=== PATIENT | male | born 1970 | race Caucasian/White ===

== ENCOUNTER → 2018-09-02 19:27 | Outpatient (CLI) | payer MEDICAID, SELFPAY ==
[2018-09-02 19:42] LABS: Basophils # 0.1 K/mm3 (0-0.2); Basophils % 1.2 % (0.1-2.0); Eosinophils # 0.3 K/mm3 (0.0-0.4); Eosinophils % 4.8 % (0.1-12.0); Hematocrit 53.8 % (42.0-52.0); Hemoglobin 17.6 g/dL (14.1-18.0); Lymphocytes # 2.6 K/mm3 (0.7-4.5); Lymphocytes % 42.3 % (10-50); Mean Corpuscular HGB Conc 32.7 g/dL (31.8-35.4); Mean Corpuscular Hemoglobin 32.8 pg (27.0-31.2); Mean Corpuscular Volume 100.4 fl (80-94); Mean Platelet Volume 10.1 fl (7.4-10.4); Monocytes # 0.4 K/mm3 (0.1-1.0); Monocytes % 6.4 % (1.7-9.3); Neutrophils # 2.8 K/mm3 (1.8-7.8); Neutrophils % 45.3 % (37.0-80.0); Platelet Count 199 K/mm3 (142-424); Red Blood Count 5.36 M/mm3 (4.60-6.20); Red Cell Distribution Width 13.3 % (11.5-17.5); White Blood Count 6.2 K/mm3 (4.8-10.8)
[2018-09-02 20:08] LABS: Alanine Aminotransferase 36 U/L (12-78); Albumin Level 3.6 gm/dL (3.4-5.0); Albumin/Globulin Ratio 0.9 (1.1-1.8); Alkaline Phosphatase 83 U/L (46-116); Anion Gap 15.2 mEq/L (5-15); Aspartate Amino Transferase 19 U/L (15-37); Bilirubin,Total 0.3 mg/dL (0.2-1.0); Blood Urea Nitrogen 7 mg/dL (7-18); Carbon Dioxide 24 mmol/L (21.0-32.0); Chloride 103 mmol/L (98-107); Chol/HDL Ratio 9.9 (1-3.5); Cholesterol 348 mg/dL (140-200); Estimated Glomerular Filt Rate 80 ml/min (>60); GFR (African American) 97 ML/MIN (>60); Globulin 4.1 gm/dl (1.3-3.2); Glucose 84 mg/dL (74-106); HDL Cholesterol 35 mg/dL (27-67); LDL Cholesterol 243 mg/dL (0-130); Potassium 4.2 mmoL/L (3.5-5.1); Sodium 138 mmol/L (136-145); T4 (Thyroxine) 6.8 ug/dl (4.7-13.3); Thyroid Stimulating Hormone 2.38 uIU/ml (0.358-3.740); Total Protein,Serum 7.7 gm/dL (6.4-8.2); Triglycerides 349 mg/dL (30-200); VLDL Cholesterol 70 mg/dL (0-40)
[2018-09-05 17:10] LABS: PSA, Free 0.18 ng/mL; Prostate Specific Ag 0.9 ng/mL (0.0-4.0); Testosterone,Total 327 ng/dL (264-916); Vitamin D 25 Hydroxy 5.1 ng/mL (30.0-100.0)
== END ==
PROVIDERS: Visit Provider Physician Assistant
DX: R39.11 Hesitancy of micturition (principal); J42 Unspecified chronic bronchitis
CPT/HCPCS: 80053; 80061; 82652; 84153; 84154; 84403; 84436; 84443; 85025

== ENCOUNTER → 2019-04-09 11:18 | Outpatient (CLI) | payer MEDICAID, SELFPAY ==
--- NOTE | 2019-04-09 11:25 | CT_ITS ---
PROCEDURE: CT WRIST RT WO CON CLINICAL HISTORY: further evaluate fracture Pain following injury, fracture with deformity, preoperative evaluation COMPARISON: XR WRIST RT 2V from 04/08/2019 TECHNIQUE: Axial images obtained with sagittal and coronal reformats. All CT scans at the facility use one or more dose reduction, viz: automated exposure control, ma/kV adjustment per patient size (including targeted exams where dose is matched to indication, i.e. head), or iterative reconstruction technique. FINDINGS: There is a comminuted distal radial fracture with both transverse and longitudinal component. Longitudinal component is along the distal and anterior aspect of the radius with depression and anterior displacement of the anterior radial fracture fragment by 8 mm. The longitudinal component extends into the articular surface. There is anterior subluxation the lunate/carpal bones. This is consistent with a volar type Medrano's fracture dislocation. The Radi O ulnar joint appears intact. No other fractures are evident. There is mild soft tissue swelling about the wrist dorsally. IMPRESSION: Volar type Medrano's fracture dislocation of the distal radius/wrist Dictated by: Shaun Jaeger MD 04/09/2019 12:48 Signed by: <Electronically signed by Shaun Jaeger MD in [place]> 04/09/2019 12:48
== END ==
PROVIDERS: PCP Emergency Medicine; Visit Provider Orthopaedic Surgery
DX: S62.101A Fracture of unspecified carpal bone, right wrist, initial encounter for closed fracture (principal)
CPT/HCPCS: 73200

== ENCOUNTER → 2019-04-10 10:08 | Outpatient (CLI) | payer MEDICAID, SELFPAY ==
--- NOTE | 2019-04-10 | ECG_ITS ---
APPROVED REPORT Exam: Resting ECG HR:63 bpm ECG Measurements Heart Rate 63 AXES MS 164 P 10 QRSd 102 QRS 26 QT 400 T 47 QTc 409 <Conclusion> Normal sinus rhythm with sinus arrhythmia Normal ECG Electronically signed by : Grodon Horner, 04/10/2019 17:38:50
--- NOTE | 2019-04-10 10:37 | XR_ITS ---
PROCEDURE: XR CHEST 2V CLINICAL HISTORY: TOBACCO USE COMPARISON: No exams were available for comparison FINDINGS: The cardiomediastinal silhouette and pulmonary vascularity are within normal limits. There is coarsening of the bronchovascular markings suggesting chronic peribronchial inflammatory change/COPD. No lobar consolidation or collapse. Degenerative changes thoracic spine IMPRESSION: COPD, no acute finding Dictated by: Shaun Jaeger MD 04/10/2019 11:20 Signed by: <Electronically signed by Shaun Jaeger MD in [place]> 04/10/2019 11:20
[2019-04-10 10:46] LABS: Basophils # 0.1 K/mm3 (0-0.2); Eosinophils # 0.2 K/mm3 (0.0-0.4); Eosinophils % 3.5 % (0.1-12.0); Hematocrit 46.7 % (42.0-52.0); Hemoglobin 15.7 g/dL (14.1-18.0); Lymphocytes # 1.9 K/mm3 (0.7-4.5); Lymphocytes % 32.8 % (10-50); Mean Corpuscular HGB Conc 33.5 g/dL (31.8-35.4); Mean Corpuscular Hemoglobin 33.4 pg (27.0-31.2); Mean Corpuscular Volume 99.6 fl (80-94); Mean Platelet Volume 10.3 fl (7.4-10.4); Monocytes # 0.4 K/mm3 (0.1-1.0); Monocytes % 7.1 % (1.7-9.3); Neutrophils # 3.2 K/mm3 (1.8-7.8); Neutrophils % 55.5 % (37.0-80.0); Platelet Count 153 K/mm3 (142-424); Red Blood Count 4.69 M/mm3 (4.60-6.20); Red Cell Distribution Width 14.3 % (11.5-17.5); White Blood Count 5.8 K/mm3 (4.8-10.8)
[2019-04-10 11:42] LABS: Blood Urea Nitrogen 9 mg/dL (7-18); Calcium 8.8 mg/dL (8.5-10.1); Carbon Dioxide 29 mmol/L (21.0-32.0); Chloride 105 mmol/L (98-107); Creatinine,Serum 1.46 mg/dL (0.70-1.30); Estimated Glomerular Filt Rate 52 ml/min (>60); GFR (African American) 62 ML/MIN (>60); Glucose 97 mg/dL (74-106); Sodium 140 mmol/L (136-145)
== END ==
PROVIDERS: PCP Emergency Medicine; Visit Provider Orthopaedic Surgery
DX: Z01.818 Encounter for other preprocedural examination (principal); S52.561A Barton's fracture of right radius, initial encounter for closed fracture
CPT/HCPCS: 36415; 71046; 80048; 85025; 93005

== ENCOUNTER → 2019-04-23 14:26 | Outpatient (CLI) | payer MEDICAID, SELFPAY ==
--- NOTE | 2019-04-23 14:32 | XR_ITS ---
PROCEDURE: XR WRIST RT MIN 3V CLINICAL INDICATION: wrist ORIF Follow-up ORIF/fracture, pain COMPARISON: XR WRIST RT 2V from 04/08/2019 XR WRIST RT 2V from 04/13/2019 FINDINGS: A cast is in place. There is an anterior/volar bone plate stabilizing the distal radial fracture which is in good alignment. There may be some callus formation laterally. IMPRESSION: Good alignment status post ORIF distal radial fracture Dictated by: Shaun Jaeger MD 04/23/2019 16:40 Electronically signed by Shaun Jaeger MD in [place] 04/23/2019 16:40
== END ==
PROVIDERS: PCP Emergency Medicine; Visit Provider Orthopaedic Surgery
DX: S52.501A Unspecified fracture of the lower end of right radius, initial encounter for closed fracture (principal)
CPT/HCPCS: 73110

== ENCOUNTER → 2019-05-20 12:59 | Outpatient (CLI) | payer MEDICAID, SELFPAY ==
--- NOTE | 2019-05-20 13:06 | XR_ITS ---
PROCEDURE: XR WRIST RT MIN 3V CLINICAL INDICATION: sp ORIF rt distal radius; cast removal COMPARISON: XR WRIST RT 2V from 04/08/2019 XR WRIST RT MIN 3V from 04/23/2019 FINDINGS: Distal right wrist orthopedic hardware is stable. The appearance of the distal radius and ulna are stable. There has been removal of the splint device. There is no other change. IMPRESSION: Removal of the splint device. No other significant change or acute process. Dictated by: Maico Huber 05/20/2019 13:30 Electronically signed by Maico Huber in [place] 05/20/2019 13:30
== END ==
PROVIDERS: PCP Emergency Medicine; Visit Provider Orthopaedic Surgery
DX: Z48.89 Encounter for other specified surgical aftercare (principal); S62.101D Fracture of unspecified carpal bone, right wrist, subsequent encounter for fracture with routine healing
CPT/HCPCS: 73110

== ENCOUNTER 2019-05-20 14:03 | Outpatient (RCR) | payer MEDICAID, SELFPAY | END 2019-05-20 14:15 | disposition home or self-care (01) | LOC: OT 14:03 | PROVIDERS: Visit Provider Orthopaedic Surgery | DX: S52.561D Barton's fracture of right radius, subsequent encounter for closed fracture with routine healing (principal) | CPT/HCPCS: 97763 ==

== ENCOUNTER 2019-06-12 13:00 | Outpatient (RCR) | payer MEDICAID, SELFPAY ==
--- NOTE | 2019-05-29 13:42 | HMH.OTOPEV ---
OT Inpatient Evaluation Rehab OT Outpatient Eval Start: 05/29/19 13:27 Freq: Status: Active Protocol: Document 05/29/19 13:27 TFRY (Rec: 05/29/19 13:42 TFRY [id number]) Electronically Signed By Cori Easton OT 05/29/19 13:27 Outpatient Therapy Subjective History Subjective History Patient referred to occupational therapy after undergoing an ORIF of right wrist. Patient reported that he had surgery on 04/13/19. He reported that he fell off his porch approximately 10 days prior to having surgery. Patient reports that he is right handed. Chief Complaint Pain,Stiff Symptom Type Ache,Sharp Symptoms Relieved By Ice,Brace/Support Symptoms Aggravated By Physical Activity Prior Functional Limitations None Current Functional Limitations Lifting,Housework Level of pain today (0-10) 1 Pain scale - at its best (0-10) 1 Pain scale - at its worst (0-10) 8 Wrist/Hand Eval Wrist Range of Motion Right Wrist Extension Active Range of Motion ( 50 degrees) Wrist Extension Passive Range of Motion 54 (degrees) Wrist Flexion Active Range of Motion ( 40 degrees) Wrist Flexion Passive Range of Motion ( 51 degrees) Wrist Radial Deviation Active Range of 20 Motion (degrees) Wrist Radial Deviation Passive Range of 22 Motion (degrees) Wrist Ulnar Deviation Active Range of 15 Motion (degrees) Wrist Ulnar Deviation Passive Range of 20 Motion (degrees) Forearm Supination Active Range of 70 Motion (degrees) Forearm Supination Passive Range of 90 Motion (degrees) Forearm Pronation Active Range of Motion WFL (degrees) Forearm Pronation Passive Range of WFL Motion (degrees) Wrist Manual Muscle Testing Right Wrist Extension Strength Grade 3+ Fair+ Wrist Flexion Strength Grade 3+ Fair+ Wrist Radial Deviation Strength Grade 3+ Fair+ Wrist Ulnar Deviation Strength Grade 3+ Fair+ Flexor Carpi Ulnaris Strength Grade 3+ Fair+ Forearm Supination Strength Grade 3+ Fair+ Forearm Pronation Strength Grade 3+ Fair+ Supply And Distribution Manager/Pinch Strength Supply And Distribution Manager Strength Measurement (lbs) 15 OT Outpatient Assessment Impairments Problems/Impairments Impaired Strength,Impaired Lifting,Impaired Household Care,Subjective C/O Pain Prognosis Rehab Potential Good Clinical Impressio
== END 2019-06-12 13:05 | disposition home or self-care (01) ==
LOC: OT 13:00
PROVIDERS: Visit Provider Orthopaedic Surgery
DX: S52.561D Barton's fracture of right radius, subsequent encounter for closed fracture with routine healing (principal)
CPT/HCPCS: 97110; 97140; 97165

== ENCOUNTER → 2019-07-07 12:42 | Outpatient (CLI) | payer OTHER, SELFPAY ==
--- NOTE | 2019-07-07 12:50 | XR_ITS ---
PROCEDURE: XR WRIST RT 2V CLINICAL INDICATION: sp ORIF RT wrist, dos 04/13/19 COMPARISON: 05/20/2019 FINDINGS: Status post ORIF distal radial fracture with volar bone plate with good alignment. The fracture lines are not well visualized. There are osteoarthritic changes of the distal radial ulnar joint and scapholunate joint IMPRESSION: Good alignment status post ORIF distal radial fracture Dictated by: Shaun Jaeger MD 07/07/2019 16:48 Electronically signed by Shaun Jaeger MD in [place] 07/07/2019 16:48
== END ==
PROVIDERS: PCP Emergency Medicine; Visit Provider Orthopaedic Surgery
DX: S52.501D Unspecified fracture of the lower end of right radius, subsequent encounter for closed fracture with routine healing (principal); Z09 Encounter for follow-up examination after completed treatment for conditions other than malignant neoplasm
CPT/HCPCS: 73100

== ENCOUNTER → 2019-09-07 13:19 | Outpatient (CLI) | payer OTHER, SELFPAY ==
--- NOTE | 2019-09-07 13:19 | MR_ITS ---
PROCEDURE: MR SHOULDER RT WO CON CLINICAL INDICATION: evaluate for a rotator cuff tear COMPARISON: No exams were available for comparison TECHNIQUE: FINDINGS: Routine multiplanar multisequence exam was performed. There is a full-thickness tear of the supraspinatus tendon of the rotator cuff. A small amount of fluid is seen in the subacromial/subdeltoid bursa. There is mild old acromioclavicular joint arthropathy with bone marrow edema in the distal clavicle and in the acromion on and there is some bony hypertrophy projecting inferiorly contacting the supraspinatus muscle. A small amount of fluid is seen in the acromion -clavicular joint space. There is fluid in the subcoracoid recess. Small amount of fluid is seen in the glenohumeral joint space. There is signal abnormality in the subscapularis tendon with intact fibers and some tendon thickening consistent with tendinosis or partial substance tearing. Glenoid labrum appear intact. An approximately 4 millimeter subchondral cyst is seen in the superior lateral humeral head. The bicipital tendon is in place. IMPRESSION: Full-thickness tear of supraspinatus tendon of the rotator cuff. Tendinosis/partial substance tearing of the subscapularis tendon is also noted. Dictated by: Michele Fontenot 09/07/2019 16:47 Electronically signed by Michele Fontenot in [place] 09/07/2019 16:47
== END ==
PROVIDERS: PCP Emergency Medicine; Visit Provider Orthopaedic Surgery
DX: M25.511 Pain in right shoulder (principal)
CPT/HCPCS: 73221

== ENCOUNTER → 2019-09-14 09:40 | Outpatient (CLI) | payer OTHER, SELFPAY ==
--- NOTE | 2019-09-14 09:47 | XR_ITS ---
PROCEDURE: XR CHEST 2V CLINICAL HISTORY: smoker/ preop evaluation COMPARISON: XR CHEST 2V from 04/10/2019 FINDINGS: The cardiomediastinal silhouette and pulmonary vascularity are within normal limits. COPD with chronic interstitial changes noted. No lobar consolidation or collapse. No acute bony abnormalities. IMPRESSION: COPD with chronic changes. No change with no acute Dictated by: Shaun Jaeger MD 09/14/2019 12:23 Electronically signed by Shaun Jaeger MD in [place] 09/14/2019 12:23
--- NOTE | 2019-09-14 10:51 | ECG_ITS ---
APPROVED REPORT Exam: Resting ECG HR:59 bpm ECG Measurements Heart Rate 59 AXES NM 182 P 20 QRSd 96 QRS 10 QT 390 T 38 QTc 386 <Conclusion> Sinus bradycardia with sinus arrhythmia Otherwise normal ECG Electronically signed by : Frederick Domingo, 09/14/2019 13:17:27
[2019-09-14 11:03] LABS: Basophils # 0.1 K/mm3 (0-0.2); Basophils % 1.6 % (0.1-2.0); Eosinophils # 0.2 K/mm3 (0.0-0.4); Eosinophils % 4.1 % (0.1-12.0); Hematocrit 49.3 % (42.0-52.0); Hemoglobin 16.4 g/dL (14.1-18.0); Lymphocytes # 2.2 K/mm3 (0.7-4.5); Lymphocytes % 37.8 % (10-50); Mean Corpuscular HGB Conc 33.1 g/dL (31.8-35.4); Mean Corpuscular Hemoglobin 32.6 pg (27.0-31.2); Mean Corpuscular Volume 98.5 fl (80-94); Mean Platelet Volume 9.5 fl (7.4-10.4); Monocytes # 0.5 K/mm3 (0.1-1.0); Monocytes % 7.9 % (1.7-9.3); Neutrophils # 2.8 K/mm3 (1.8-7.8); Neutrophils % 48.6 % (37.0-80.0); Platelet Count 163 K/mm3 (142-424); Red Blood Count 5.01 M/mm3 (4.60-6.20); Red Cell Distribution Width 14.9 % (11.5-17.5); White Blood Count 5.7 K/mm3 (4.8-10.8)
[2019-09-14 11:22] LABS: Alanine Aminotransferase 28 U/L (12-78); Albumin Level 3.7 gm/dL (3.4-5.0); Albumin/Globulin Ratio 1.2 (1.1-1.8); Alkaline Phosphatase 72 U/L (46-116); Anion Gap 14.1 mEq/L (5-15); Aspartate Amino Transferase 18 U/L (15-37); Bilirubin,Total 0.5 mg/dL (0.2-1.0); Blood Urea Nitrogen 9 mg/dL (7-18); Calcium 8.9 mg/dL (8.5-10.1); Carbon Dioxide 27 mmol/L (21.0-32.0); Chloride 106 mmol/L (98-107); Estimated Glomerular Filt Rate 64 ml/min (>60); GFR (African American) 78 ML/MIN (>60); Globulin 3.1 gm/dl (1.3-3.2); Glucose 83 mg/dL (74-106); Potassium 4.1 mmoL/L (3.5-5.1); Sodium 143 mmol/L (136-145); Total Protein,Serum 6.8 gm/dL (6.4-8.2)
== END ==
PROVIDERS: PCP Emergency Medicine; Visit Provider Orthopaedic Surgery
DX: Z01.818 Encounter for other preprocedural examination (principal); S46.011D Strain of muscle(s) and tendon(s) of the rotator cuff of right shoulder, subsequent encounter
CPT/HCPCS: 36415; 71046; 80053; 85025; 93005

== ENCOUNTER → 2019-12-15 13:31 | Outpatient (CLI) | payer OTHER, SELFPAY ==
--- NOTE | 2019-12-15 13:35 | XR_ITS ---
PROCEDURE: XR SHOULDER RT MIN 2V CLINICAL INDICATION: surgery 09/17/2019; internal, external and y views Follow-up surgery COMPARISON: XR SHOULDER RT MIN 2V from 07/29/2019 FINDINGS: There are 2 anchor screws along the humeral head centrally. There are mild osteoarthritic changes the acromioclavicular joint and glenohumeral joint with some minimal superior displacement of the humeral head. IMPRESSION: Postsurgical changes with mild osteoarthritis of the AC joint and glenohumeral joint Dictated by: Shaun Jaeger MD 12/15/2019 13:53 Electronically signed by Shaun Jaeger MD in [place] 12/15/2019 13:53
== END ==
PROVIDERS: PCP Emergency Medicine; Visit Provider Orthopaedic Surgery
DX: Z09 Encounter for follow-up examination after completed treatment for conditions other than malignant neoplasm (principal); Z98.890 Other specified postprocedural states; S49.91XD Unspecified injury of right shoulder and upper arm, subsequent encounter; S46.011D Strain of muscle(s) and tendon(s) of the rotator cuff of right shoulder, subsequent encounter
CPT/HCPCS: 73030

== ENCOUNTER 2020-04-14 17:43 | Emergency (ER) | payer OTHER, SELFPAY ==
[2020-04-14 18:02] VITALS: BP 137/72; PULSE 81; RESP 14; TEMP 36.6; O2SAT 96; BMI 33.0
--- NOTE | 2020-04-14 18:11 | HMH.EDUTC ---
[facility] [place] Disposition Clinical Impression: Low back pain Qualifiers: Chronicity: unspecified Back pain laterality: bilateral Sciatica presence: without sciatica Qualified Code(s): M54.5 - Low back pain Disposition: Home, Self-Care Condition on Discharge: Good Instructions: DI for Low Back Pain, Low Back Pain, Low Back Pain (Alternative Therapy), Cyclobenzaprine, Etodolac Additional Instructions: *Etodolac patrick 6 hours with meal as needed for pain/inflammation *Remember you had a Toradol shot in the clinic today, which is similar to Etodolac *Not additional anti-inflammatory like motrin, aleve, advil with the above amount of ibuprofen. You can still take Tylenol every 4 hours as needed if you need something else for pain *Ice 20 minutes every 2 hours for the first 48 hours after the initial injury followed by moist heat every 20 minutes 3-4 times a day to affected area *Muscle relaxer every 8 hours as needed for muscle spasms but remember, it WILL cause drowsiness You cannot take it and drive, operate machinery or care for small children. *Keep this area active, no movement leads to more stiffness, However take it easy and avoid heavy lifting pushing or pulling *Follow up with you family doctor if no improvement for further treatment] Return if needed Straight to ER if any life threatening symptoms Prescriptions: Etodolac [Etodolac 200mg Cap*] 200 mg PO Q6H PRN #20 cap PRN Reason: Moderate Pain Transmission Status: Pending to [facility] Cyclobenzaprine HCl [Flexeril 10mg tablet] 10 mg PO TID PRN #12 tab PRN Reason: Muscle Spasm Transmission Status: Pending to [facility] Referrals: Daniel Peña MD [Primary Care Provider] - As needed Time of Disposition: 18:34 Medical Decision Making - Oscar Inquiry Pt receiving controlled substance: No Oscar was queried for this patient: No Vital Signs: 04/14/20 18:02 Temperature 97.8 F Temperature Source Oral Pulse Rate [Right Brachial] 81 Respiratory Rate 14 Blood Pressure [Right Arm] 137/72 Blood Pressure Mean [Right Arm] 93 Blood Pressure Source [Right Arm] Automatic Cuff Blood Pressure Position [Right Arm] Sitting 02 Sat by Pulse Oximetry 96 Oxygen Delivery Method Room Air - Lab Data Lab results reviewed: Yes: I reviewed the patient's lab results. Medical Decision Narrative: Discussed with patient with history of Kidney stones that we recommend transfer to the ED for CT with stone protocol to rule out Kidney stones and patient declined transfer States that feels nothing like it did when he had Kidney stones and declined transfer [facility] [place] HPI - General Stated complaint: back pain Time Seen by Provider: 04/14/20 18:12 Mode of Arrival: Ambulatory Source of Information: Patient Limitations: No Limitations Description of Symptoms (Recalled from Triage Doc. by RN): PATIENT C/O SHARP, STABBING MID-BACK PAIN THAT RADIATES DOWN SINCE SATURDAY. HE STATES HE DOES HAVE A HISTORY OF KIDNEY STONES HEENT Symptoms (Recalled from RN notes): No Resp Symptoms (Recalled from RN notes): No Skin Symptoms (Recalled from RN notes): No MS Symptoms (Recalled from RN notes): Yes Functional Status (Recalled from RN notes): WNL - History of Present Illness Provider Complaint: Patient states that he has a history of Kidney stones but this doesnt feel like it did then States that he has been having stabbing, dull achy like pain in his lower back and feeling of tightness and spasms Denies loss of control of bowel or bladder States that he pulled his bedridden sister up in bed on Saturday and has been having pain ever since that is in his lower back and radiating into buttock area - Related Data Previous Rx's Medication Instructions Recorded Cyclobenzaprine HCl [Flexeril 10mg 10 mg PO TID PRN #12 tab 04/14/20 tablet] Etodolac [Etodolac 200mg Cap*] 200 mg PO Q6H PRN #20 cap 04/14/20 Allergies Allergy/AdvReac Type Severity Reaction Status Date / Time No Known Allergies
[2020-04-14 18:15] LABS: Apearance,Urine Clear (Clear); Color,Urine Yellow (Yellow)
[2020-04-14 18:16] LABS: PH,Urine 5.5 (5.0-8.5); Specific Gravity, Urine >= 1.030 (1.005-1.030)
[2020-04-14 18:17] LABS: Bilirubin,Urine Negative (Negative); Blood, Urine Negative (Negative); Glucose,Urine (UA) Negative (Negative); Ketones,Urine Negative (Negative); Protein,Urine Negative (Negative); UTC Leukocyte Esterase,Urine Negative (Negative); UTC Nitrate,Urine Negative (Negative); Urobilinogen,Urine 1 EU/dl (0.2)
[2020-04-14 18:29] VITALS: BP 137/72; PULSE 81; RESP 14; TEMP 36.6; O2SAT 96
== END 2020-04-14 18:45 | disposition home or self-care (01) ==
PROVIDERS: Emergency Provider Nurse Practitioner; PCP Emergency Medicine
DX: M54.5 Low back pain (principal); Z87.442 Personal history of urinary calculi; I10 Essential (primary) hypertension; J44.9 Chronic obstructive pulmonary disease, unspecified; E78.5 Hyperlipidemia, unspecified; F33.1 Major depressive disorder, recurrent, moderate; F17.210 Nicotine dependence, cigarettes, uncomplicated; Z79.899 Other long term (current) drug therapy
CPT/HCPCS: 81003; 96372; 99201; 99202

== ENCOUNTER 2020-12-29 10:46 | Emergency (ER) | payer OTHER, SELFPAY ==
[2020-12-29 10:47] VITALS: BP 162/100; PULSE 78; RESP 20; TEMP 36.6; O2SAT 99; BMI 34.2
--- NOTE | 2020-12-29 11:05 | HMH.EDGENADL ---
ED Disposition Clinical Impression: Fracture, vertebral, lumbar closed Qualifiers: Encounter type: initial encounter Lumbar vertebra fracture level: L5 Fracture morphology: other fracture Qualified Code(s): S32.058A - Other fracture of fifth lumbar vertebra, initial encounter for closed fracture Disposition: Home, Self-Care Condition on Discharge: Fair Instructions: DI for Vertebral Fracture, DI for Low Back Pain Additional Instructions: Percocet as needed for pain. Rest. Additional instructions for BACK PAIN: See your physician as soon as possible for further evaluation. Return immediately if back pain becomes intolerable, or if fever, numbness or weakness of your legs, loss of control of your bowels or bladder. Additional instructions for CONTROLLED SUBSTANCES: You have been prescribed a medication that is a controlled substance. Controlled substances include pain medications known as opiates and sedative nerve medications known as benzodiazepines. Tramadol, fioricet, and gabapentin are also controlled substances. Some common opiates include: Codeine (such as Tylenol #3) Hydrocodone (Vicodin, Lortab, Lorcet, [place]) Oxycodone (Percocet, Percodan, Oxycodone, Oxy IR) Some common benzodiazepines include: Diazepam (Valium) Lorazepam (Ativan) Alprazolam (Xanax) Clonazepam (Klonopin) Oxazepam (Serax) All of these controlled substances are highly addictive and frequently abused. Misuse can and frequently does lead to addiction as well as overdose and . Medication should be stored in a locked cabinet or other secure storage unit. Do not store the medication in a motor vehicle. Short term supplies, 3 days or less, are prescribed because of the highly addictive nature of the medication. Any of the controlled substance medication NOT taken should be disposed of properly and NOT SAVED. The recommended method of disposing of unused medications is: Place the medicines in a sealable plastic bag. If the medicine is a solid, crush it or add water to dissolve it. Add something undesirable (cat litter, coffee grounds, etc.) Dispose of sealed bag in household trash Do not flush or pour unused medicines down a sink or drain. Controlled substances should not be shared, given away or sold. Because of the addictive nature and frequent abuse, these medications are sometimes stolen. These medications should be kept in a safe place where they cannot be stolen. Do not keep them in your car or purse. Lost or stolen prescriptions for controlled substances WILL NOT BE REFILLED in this emergency department, regardless of whether a police report was filed. Prescriptions: Oxycodone HCl/Acetaminophen [Percocet 5/325mg tablet] 1 tab PO Q6HP PRN #20 tab PRN Reason: Moderate To Severe Pain Transmission Status: Received by [facility] Referrals: Daniel Peña MD [Primary Care Provider] - - Critical Care Critical Care Time: No Attestation: On , the high probability of a clinically significant, sudden or life threatening deterioration of the following system(s) required my full and direct attention, intervention and personal management. The time I documented below is in addition to time spent performing reported procedures but includes the following listed in this critical care notation. Medical Decision Making - Oscar Inquiry Pt receiving controlled substance: Yes Oscar was queried for this patient: Yes Risks and benefits of using a controlled substance: were discussed with pt by me Vital Signs: 12/29/20 10:47 12/29/20 11:45 Temperature 97.8 F Temperature Source Oral Pulse Rate 76 Pulse Rate [Right Radial] 78 Respiratory Rate 20 18 Blood Pressure 144/96 H Blood Pressure [Right Arm] 162/100 H Blood Pressure Mean [Right Arm] 120 02 Sat by Pulse Oximetry 99 95 Oxygen Delivery Method Room Air Orders (Tests/Meds): ED MEDICATIONS Discontinued Medications Generic Name Dose Route Sta
--- NOTE | 2020-12-29 11:13 | CT_ITS ---
PROCEDURE: CT LUMBAR SPINE WO CON CLINICAL HISTORY: fall COMPARISON: No exams were available for comparison TECHNIQUE: Axial images obtained with sagittal and coronal reformats. All CT scans at the facility use one or more dose reduction, viz: automated exposure control, ma/kV adjustment per patient size (including targeted exams where dose is matched to indication, i.e. head), or iterative reconstruction technique. FINDINGS: There is normal lumbar lordosis. Vertebral body heights and alignment are maintained. Anterior osteophyte formation is noted at L3, L4 and L5 vertebral bodies. There is evidence of fracture of the anterior osteophyte at L5 vertebral body. No other acute fractures or traumatic subluxation. Bone density is normal. Multilevel disc desiccation with the disc osteophyte complexes noted causes mild thecal sac indentation. Multilevel facet joint arthropathy, worse at L4-5 level causes moderate to severe bilateral foraminal narrowing. Minor soft tissue stranding is noted adjacent to the prevertebral soft tissues at the L5 vertebral body. Otherwise the paravertebral soft tissues demonstrate no significant abnormality. Atherosclerotic vascular calcification is noted. Two focal sclerotic density is noted in the left iliac bone, of uncertain significance. The statistically most likely represents bone islands. IMPRESSION: Vertebral body heights and alignment are maintained. There is a fracture of the anterior osteophyte of the L5 vertebral body. Multilevel degenerative changes with the disc osteophyte complex at L4-5, causes moderate to severe bilateral foraminal narrowing. Dictated by: Mare Bryson 12/29/2020 12:17 Mare Bryson in [place] 12/29/2020 12:17
[2020-12-29 11:45] VITALS: BP 144/96; PULSE 76; RESP 18; O2SAT 95
[2020-12-29 13:04] VITALS: BP 162/100; PULSE 78; RESP 20; TEMP 36.6; O2SAT 99
== END 2020-12-29 13:06 | disposition home or self-care (01) ==
PROVIDERS: Emergency Provider Emergency Medicine; PCP Emergency Medicine
DX: S32.058A Other fracture of fifth lumbar vertebra, initial encounter for closed fracture (principal); W30.89XA Contact with other specified agricultural machinery, initial encounter; Y92.017 Garden or yard in single-family (private) house as the place of occurrence of the external cause; J44.9 Chronic obstructive pulmonary disease, unspecified; E78.5 Hyperlipidemia, unspecified; I10 Essential (primary) hypertension; F17.210 Nicotine dependence, cigarettes, uncomplicated; Z79.899 Other long term (current) drug therapy
CPT/HCPCS: 72131; 96372; 99282; J2405

== ENCOUNTER → 2021-01-05 10:26 | Outpatient (POV) | payer OTHER, SELFPAY ==
[2021-01-05 10:44] VITALS: BP 132/85; PULSE 68; RESP 18; O2SAT 98; BMI 22.2
--- NOTE | 2021-01-05 15:07 | HMH.PMCON ---
Assessment and Plan (1) Degenerative disc disease Status: Acute Category: Medical (2) Lumbar radiculopathy Status: Acute Category: Medical Code(s): M54.16 - Radiculopathy, lumbar region - Assessment and plan all Dx Assessment and Plan for all problems:: We will schedule an L4-L5 lumbar epidural steroid injection for the patient. Patient's been instructed to call the office if he has any issues prior to his next appointment. Dr. Mosley has reviewed this note and agrees with this plan of care. This note was dictated using voice recognition software and may contain errors or omissions HPI - Data of Consult Requesting Physician: Maday Waters APRN Primary Care Provider: Daniel Peña MD - Consult Narrative Reason for consult: Back pain, leg pain History of present illness: Mr. Saldivar is a 50 year old male in today for consultation in regards to his back pain. Patient has had back pain for several years he rates it a 6 out of 10. He has numbness and tingling in his right leg extending all the way to his foot. Patient has failed 6 weeks of medication therapy including Kearsarge. Patient does get temporary relief sometimes from oral steroids however this is unsustainable. He has an MRI showing degenerative changes. Patient is interested in injective therapy. Patient's tried and failed physical therapy, massage therapy. Patient had a pain physician back in 1995 had lidocaine injections at the time however the relief was not long-lasting. Patient I discussed steroid epidural steroid injections. CC: Maday Waters APRN [facility] History I have reviewed the patient's past medical history: Yes Medical History: Reports:: Chronic Obstructive Pulmonary Disease (COPD), Depression, Hyperlipidemia, Hypertension Denies:: Cancer, Diabetes Mellitus Type 1, Diabetes Mellitus Type 2, Internal Pacemaker, MRSA, Seizures *Have you ever received a pneumonia vaccine?: Yes *Have you received a flu vaccine this season?: Yes Other Medical History: Reports: Arthritis, Other. Denies: Blood Transfusion Reaction Laterality Cases: Left: ACL Repair, Arthroscopy Knee, Right: Arthroscopy Shoulder, Bilateral: Other Other Surgeries: Yes: No Previous Surgery, Other. No: Pacemaker Amputation: No Fractures: Yes (R wrist x2) - *Social History Smoking Status: Current every day smoker Tobacco Type: cigarettes # Packs/Day (cigarettes): 1 Alcohol Intake: never Alcohol Intake Frequency:: a few times a month Substance Use Type: marijuana *Occupational Status:: employed Housing: house Household Members: other *Travel in the last 8 weeks: None - Psychiatric History Pschychiatric History:: Reports:: Depression Family Hx:: Cancer, Coronary Artery Disease, Diabetes, Heart Attack, Hyperlipidemia, Hypertension Review of Systems - Review of Systems ROS General: no recent weight change, no fever, no sleep disturbances Respiratory: no cough, no shortness of air, no recurring pulmonary infections Cardiovascular/Peripheral Vascular: No chest pain, No palpitations, no edema, no shortness of breath. Gastrointestinal: no new onset incontinence, normal bowel movements reported Genitourinary: no new onset incontinence Musculoskeletal: Back pain, leg pain Psychiatric: normal mood/ affect Neurological: [denies new onset weakness in extremities], [denies new onset balance issues] Meds Home Medications Medication Instructions Recorded Confirmed Type hydrocodone 7.5 mg-acetaminophen 1 tab PO TID PRN #21 tab 12/30/20 12/30/20 Rx 325 mg tablet Allergies Allergy/AdvReac Type Severity Reaction Status Date / Time No Known Allergies Allergy Verified 12/30/20 14:00 Objective Vital signs: Pulse Resp BP Pulse Ox 68 18 132/85 98 01/05/21 10:44 01/05/21 10:44 01/05/21 10:44 01/05/21 10:44 Narrative: Physical Exam General: Alert and oriented x3, no acute distress, pleasant and cooperative, [on room air]
== END ==
PROVIDERS: PCP Emergency Medicine; Visit Provider Clinical Nurse Specialist Family Health
DX: M51.16 Intervertebral disc disorders with radiculopathy, lumbar region (principal)
CPT/HCPCS: 99202; G0463

== ENCOUNTER → 2021-01-11 07:46 | Outpatient (CLI) | payer OTHER, SELFPAY ==
--- NOTE | 2021-01-11 07:46 | MR_ITS ---
PROCEDURE: MR LUMBAR SPINE WO CON CLINICAL INDICATION: back pain Tractor accident x1wk ago. LBP since. COMPARISON: CT CT LUMBAR SPINE WO CON from 12/29/2020 TECHNIQUE: Standard multiplanar multiecho sequences are performed without contrast. 3-D MIP and myelographic images are also rendered and reviewed FINDINGS: There is normal alignment. Spinal cord ends at the T12-L1 level. T12-L1: Mild degenerative disc disease with minimal bulging disc. There is a small right paracentral/foraminal disc herniation at this level with minimal superior extrusion causing right lateral recess and foraminal narrowing. L1-L2: Unremarkable. L2-L3: There is a small central disc protrusion. There is mild facet and ligamentum hypertrophy with mild bilateral lateral recess narrowing and mild bilateral foraminal narrowing. L3-L4: Mild bulging disc along with facet and ligamentum hypertrophy with mild bilateral foraminal narrowing. L4-5: Degenerative disc disease with bulging disc along with facet and ligamentum hypertrophy. There are endplate hypertrophic changes along with a bulging disc resulting in bilateral lateral recess and foraminal narrowing. There is borderline canal stenosis. The foraminal narrowing is worse on the right compared to the left. Type 2 endplate changes are present at this level. There is some bone marrow edema within the anterior superior aspect of the L5 vertebral body. Bridging osteophytes are present anteriorly at L4-L5. There is a thin longitudinal area of decreased T2 signal within the base of the osteophyte of L5 consistent with a nondisplaced fracture as seen on the recent CT scan. L5-S1: Small central disc protrusion with mild bulging disc. Small central disc protrusion is very slightly eccentric toward the left. There is degenerative disc disease at this level. Facet and ligamentum hypertrophic changes are noted with mild bilateral foraminal narrowing. IMPRESSION: 1. T12-L1: Mild degenerative disc disease with minimal bulging disc. There is a small right paracentral/foraminal disc herniation at this level with minimal superior extrusion causing right lateral recess and foraminal narrowing. 2. L2-L3: There is a small central disc protrusion. There is mild facet and ligamentum hypertrophy with mild bilateral lateral recess narrowing and mild bilateral foraminal narrowing. 3. L3-L4: Mild bulging disc along with facet and ligamentum hypertrophy with mild bilateral foraminal narrowing. 4. L4-5: Degenerative disc disease with bulging disc along with facet and ligamentum hypertrophy. There are endplate hypertrophic changes along with a bulging disc resulting in bilateral lateral recess and foraminal narrowing. There is borderline canal stenosis. The foraminal narrowing is worse on the right compared to the left. Type 2 endplate changes are present at this level. There is some bone marrow edema within the anterior superior aspect of the L5 vertebral body. Bridging osteophytes are present anteriorly at L4-L5. There is a thin longitudinal area of decreased T2 signal within the base of the osteophyte of L5 consistent with a nondisplaced fracture as seen on the recent CT scan. 5. L5-S1: Small central disc protrusion with mild bulging disc. Small central disc protrusion is very slightly eccentric toward the left. There is degenerative disc disease at this level. Facet and ligamentum hypertrophic changes are noted with mild bilateral foraminal narrowing. Dictated by: Shaun Jaeger MD 01/12/2021 13:30 Shaun Jaeger MD in [place] 01/12/2021 13:30
== END ==
PROVIDERS: PCP Emergency Medicine; Visit Provider Emergency Medicine
DX: M54.9 Dorsalgia, unspecified (principal); S32.058A Other fracture of fifth lumbar vertebra, initial encounter for closed fracture
CPT/HCPCS: 72148; 76376

== ENCOUNTER 2021-01-13 12:01 | Day surgery (SDC) | payer OTHER, SELFPAY ==
[2021-01-13 12:51] VITALS: BP 106/69; PULSE 68; RESP 18; TEMP 36.4; O2SAT 98; BMI 33.0
[2021-01-13 14:29] VITALS: BP 113/70; PULSE 66; RESP 17; O2SAT 99
[2021-01-13 14:33] VITALS: BP 113/70; PULSE 66; RESP 17; O2SAT 99
[2021-01-13 14:44] VITALS: BP 127/82; PULSE 66; RESP 20; O2SAT 98
--- NOTE | 2021-01-13 16:27 | HMH.PMPROC ---
- Procedure Date: 01/13/21 Time: 16:28 Anesthesiologist:: Jenny Ward MD Complications:: None Pre-procedure Diagnosis:: Disc disease of lumbar spine, lumbar radiculopathy Post-procedure Diagnosis:: Same Indications for Procedure:: Patient is a very pleasant 50-year-old white male who presents today with low back pain. He reports that he has been experiencing this back pain for several years now and it radiates down his right lower extremity extending all the way to his foot. He notes numbness and tingling down his right leg. He has trialed and failed 6 weeks of medication therapy including [place], physical therapy and massage therapy. He is also trialed short-term of oral steroids with some temporary relief. Imaging reveals degenerative changes. Exam today revealed flexion extension of the lumbar spine is somewhat guarded secondary to pain motor strength in upper and lower extremities is grossly intact and antalgic gait is noted. For today is lumbar epidural steroid injection at L4-L5. Procedure Details:: Informed consent was obtained and the risk and benefits of the procedure was explained to the patient. The patient was taken to the procedure room. The patient was placed prone on the procedure table. The patient was prepped and draped in sterile fashion. C-arm fluoroscopy was used to view the lumbar spine. Skin and subcutaneous tissues were anesthetized using lidocaine. I placed an 18-gauge epidural needle and advanced into the L4-L5 interspace using fluoroscopic guidance and [id number] to air. After confirmation of needle placement in the epidural space with dye I injected 2 mL of lidocaine 1.5% with Depo-Medrol 80 mg. Patient tolerated the procedure well with no complications. Plan and Disposition:: Up in 2 weeks. Will reevaluate symptoms at that time.
== END 2021-01-13 14:44 | disposition home or self-care (01) ==
LOC: SC.PAINP 12:03
PROVIDERS: PCP Emergency Medicine; Visit Provider Anesthesiology Pain Medicine
DX: M51.16 Intervertebral disc disorders with radiculopathy, lumbar region (principal); I10 Essential (primary) hypertension; E78.5 Hyperlipidemia, unspecified; J44.9 Chronic obstructive pulmonary disease, unspecified; M19.90 Unspecified osteoarthritis, unspecified site; F32.9 Major depressive disorder, single episode, unspecified; Z72.0 Tobacco use
CPT/HCPCS: 62323; J1040; Q9966

== ENCOUNTER 2021-02-14 11:38 | Emergency (ER) | payer OTHER, SELFPAY ==
[2021-02-14 11:40] VITALS: BP 150/95; PULSE 102; RESP 18; TEMP 36.8; O2SAT 98; BMI 33.0
--- NOTE | 2021-02-14 12:17 | HMH.EDUTC ---
[facility] [place] Clinical Impression: Urtic[place] Disposition: Home, Self-Care Condition on Discharge: Good Instructions: Hives, DI for Hives Additional Instructions: Try to avoid contact with the offending substance. Wear sun screen and try to prevent any sun burn. Don't start the oral steroids until tomorrow. Don't put the topical steroids (triamcinolone) on your face or your groin. The hydroxyzine (vistaril) will make you drowsy, so don't drive or operate heavy machinery after taking it. Also, don't take it along with any benedryl because these medications are similar and it could make you too drowsy. Follow up with your regular doctor. GO TO THE ER FOR ANY WORSENING SYMPTOMS OR CONCERNS Prescriptions: hydrOXYzine pamoate [Vistaril 25mg capsule] 25 mg PO Q6HP PRN #30 cap PRN Reason: Hives Transmission Status: Received by [facility] methylPREDNISolone [Medrol] 4 mg PO DIRECTED 6 Days #21 [email or web address] Transmission Status: Received by [facility] Referrals: Daniel Peña MD [Primary Care Provider] - Time of Disposition: 13:15 Medical Decision Making - Medical Records Medical records reviewed: No: I reviewed the patient's medical records. - Oscar Inquiry Pt receiving controlled substance: No Vital Signs: 02/14/21 11:40 02/14/21 12:39 Temperature 98.2 F 98.2 F Temperature Source Oral Pulse Rate 102 H Pulse Rate [Right Brachial] 102 H Respiratory Rate 18 18 Blood Pressure 150/95 H Blood Pressure [Right Arm] 150/95 H Blood Pressure Mean [Right Arm] 113 Blood Pressure Source [Right Arm] Automatic Cuff Blood Pressure Position [Right Arm] Sitting 02 Sat by Pulse Oximetry 98 Oxygen Delivery Method Room Air Orders (Tests/Meds): ED MEDICATIONS Discontinued Medications Generic Name Dose Route Start Last Admin Trade Name Freq PRN Reason Stop Dose Admin Methylprednisolone Sodium Succinate 125 mg 02/14/21 12:31 02/14/21 12:37 Methylprednisolone Sod Succ 125mg Vial IM 02/14/21 12:32 125 mg ONCE ONE Administration [facility] [place] - General Stated complaint: hives on legs, possible sun poisoning Time Seen by Provider: 02/14/21 12:17 Mode of Arrival: Ambulatory Source of Information: Patient Limitations: No Limitations Description of Symptoms (Recalled from Triage Doc. by RN): PATIENT C/O HIVES TO BACK OF LEGS X 1 MONTH, LIKELY STRESS INDUCED. ALSO C/O POSSIBLE SUN POISONING SINCE SATURDAY HEENT Symptoms (Recalled from RN notes): No Resp Symptoms (Recalled from RN notes): No Skin Symptoms (Recalled from RN notes): Yes MS Symptoms (Recalled from RN notes): No Functional Status (Recalled from RN notes): WNL - History of Present Illness Provider Complaint: He states that he has been getting hives and severe itching of the backs of both his legs for the past 1 month. Also, 4 days ago he was in the sun a lot and he got sun burned on his face and arms. - Related Data Home Medications Medication Instructions Recorded Confirmed Cyclobenzaprine HCl [Flexeril 10mg 10 mg PO DAILY 01/13/21 01/13/21 tablet] Previous Rx's Medication Instructions Recorded hydrOXYzine pamoate [Vistaril 25mg 25 mg PO Q6HP PRN #30 cap 02/14/21 capsule] methylPREDNISolone [Medrol] 4 mg PO DIRECTED 6 Days #21 02/14/21 tab.[email or web address] Allergies Allergy/AdvReac Type Severity Reaction Status Date / Time No Known Allergies Allergy Verified 01/13/21 13:34 - Worker's Comp Is this a Worker's Comp case?: No [facility] History - Hepatitis A Screen Drug use history?: No High risk sexual behaviors?: No History of sexually transmitted infection?: No Currently employed?: No Childcare worker?: No Do you have indoor plumbing?: Yes Do you have electricity?: Yes Attestation statement:: This patient has been screened for Hepatitis A risk factors. I have reviewed the patient's past medical history: Yes Medical History: Reports:: Chronic Obstructive Pulmonary Dis
[2021-02-14 12:39] VITALS: BP 150/95; PULSE 102; RESP 18; TEMP 36.8; O2SAT 98
== END 2021-02-14 13:23 | disposition home or self-care (01) ==
PROVIDERS: Emergency Provider Nurse Practitioner Family; PCP Emergency Medicine
DX: L50.0 Allergic urticaria (principal); J44.9 Chronic obstructive pulmonary disease, unspecified; E78.5 Hyperlipidemia, unspecified; I10 Essential (primary) hypertension; Z79.899 Other long term (current) drug therapy
CPT/HCPCS: 96372; 99202; G0463

== ENCOUNTER → 2021-02-16 14:46 | Outpatient (POV) | payer OTHER, SELFPAY ==
[2021-02-16 15:22] VITALS: BP 150/81; PULSE 100; RESP 18; O2SAT 96; BMI 33.0
--- NOTE | 2021-02-19 14:18 | HMH.PAINSOAP ---
[facility] Pain Management SOAP Note Subjective:: Patient is a 50-year-old white male who presents today for follow-up after lumbar epidural steroid injection. He is being treated for degenerative disc disease lumbar spine with lumbar radiculopathy symptoms. Patient rates his pain a 6 out of 10 today. He reports to have gotten 10 days of relief with his injection. He says that he got approximately 70% relief. His pain has returned. His pain is primarily in his low back area, as well as bilateral lower extremities. The pain is worse when rising from a sitting position. He says he does have to toss and turn often when lying down. He is currently taking corticosteroids. He understands we will not be able to do a lumbar epidural steroid injection for 2 weeks post corticosteroids. He and I discussed trying Duexis and Pennsaid cream for his low back area. He was given samples today. He may benefit from compounding cream as well. He would like to undergo a repeat lumbar epidural steroid injection at L4-L5. Review of Systems General: No recent weight changes, no fever, no sleep disturbances Respiratory: No cough, no shortness of air, no recurring pulmonary infections Cardiovascular/peripheral vascular: No chest pain, no palpitations, no edema, no shortness of breath Gastrointestinal: No new onset incontinence, normal bowel movements reported Genitourinary: No new onset incontinence Musculoskeletal: Low back pain with radiation into lower extremities Psychiatric: Normal mood/affect Neurological: [Denies weakness in extremities], [denies balance issues] Objective:: Physical exam General: Alert and oriented x3, no acute distress, pleasant and cooperative, [on room air] Lungs: Respirations even and unlabored, symmetrical chest expansion Eyes: PERRL Musculoskeletal: Flexion and extension of lumbar spine somewhat guarded secondary to pain, deep tendon reflexes normal, strength in upper and lower extremities [5/5], [abnormal gait noted] Neurological: Speech clear, manufacturing recruiter equal, no gross sensory deficit Assessment:: Degenerative disc disease lumbar spine with lumbar radiculopathy symptoms, Plan:: Patient would like to undergo repeat lumbar epidural steroid injection at L4-L5. He is not on any anticoagulation therapy. Patient has had #1 lumbar epidural steroid injection and got significant relief for 10 days. We will schedule him for a another lumbar epidural steroid injection to see if he gets relief. We will also order the patient compounding cream to apply topically to his low back area. He has tried and failed conservative therapies of physical therapy for more than 6 weeks along with continued home stretching. We have given the patient Duexis?anti-inflammatory for pain relief. We will plan to see the patient back after his injection for reevaluation of symptoms. Patient has been advised we will not be able to perform the injection until 2 weeks after today. Patient has been taking oral steroids. Risks and benefits of the procedure have been explained to the patient. Patient would like to proceed with the procedure. Possible side effects of corticosteroids have been discussed with the patient. Patient has been instructed to contact the clinic with any concerns before the next appointment. Dr. Mosley has reviewed this note and agrees with this plan of care. This note was dictated using voice recognition software and make contain errors or omissions. [facility] History I have reviewed the patient's past medical history: Yes Medical History: Reports:: Chronic Obstructive Pulmonary Disease (COPD), Depression, Hyperlipidemia, Hypertension Denies:: Cancer, Diabetes Mellitus Type 1, Diabetes Mellitus Type 2, Internal Pacemaker, MRSA, Seizures *Have you ever received a pneumonia vaccine?: No *Have you received a flu vaccine this season?: No Other Medical History: Reports: Arthritis, Other. Denies: Blood Transfusion Reaction Laterality Anthony
== END ==
PROVIDERS: PCP Emergency Medicine; Visit Provider Clinical Nurse Specialist Family Health
DX: M51.16 Intervertebral disc disorders with radiculopathy, lumbar region (principal)
CPT/HCPCS: 99212; G0463

== ENCOUNTER 2021-02-24 10:43 | Day surgery (SDC) | payer OTHER, SELFPAY ==
[2021-02-24 10:53] VITALS: BP 121/80; PULSE 79; RESP 18; TEMP 36.6; O2SAT 98; BMI 33.6
--- NOTE | 2021-02-24 11:21 | HMH.PMPROC ---
- Procedure Date: 02/24/21 Time: 11:21 Anesthesiologist:: Jenny Ward MD Complications:: None Pre-procedure Diagnosis:: Degenerative disc disease of the lumbar spine, lumbar radiculopathy Post-procedure Diagnosis:: Same Indications for Procedure:: Patient is a very pleasant 50-year-old white male who presents today with chronic low back pain radiating into his legs bilaterally noted above diagnosis. He has tried and failed conservative treatment including oral pain medication and home stretching program for greater than 6 weeks. He has previously undergone lumbar epidural steroid injections in the past and notes about 70% pain relief for a few months. The plan is for the patient to undergo repeat lumbar epidural steroid injection at L5-S1 #2 Procedure Details:: Informed consent was obtained and the risk and benefits of the procedure was explained to the patient. The patient was taken to the procedure room. The patient was placed prone on the procedure table. The patient was prepped and draped in sterile fashion. C-arm fluoroscopy was used to view the lumbar spine. Skin and subcutaneous tissues were anesthetized using lidocaine. I placed an 18-gauge epidural needle and advanced into the L5-S1 interspace using fluoroscopic guidance and [id number] to air and saline. After confirmation of needle placement in the epidural space with dye I injected 2 mL of lidocaine 1.0% with Depo-Medrol 80 mg. Patient tolerated the procedure well with no complications. Plan and Disposition:: We will follow-up with this patient in 2 weeks. Will reevaluate pain symptoms at that time. Godfrey with the patient today that should he continue to only receive short-term pain relief with the second injection he may benefit from spinal cord stimulation therapy in the future. We briefly discussed the process including the spinal cord stimulation trial prior to implant and depending on the results of the second injection we may discuss further at the next clinic visit.
[2021-02-24 11:23] VITALS: BP 138/67; PULSE 81; RESP 18; O2SAT 96
[2021-02-24 11:26] VITALS: BP 136/74; PULSE 75; RESP 18; O2SAT 96
[2021-02-24 11:37] VITALS: BP 122/65; PULSE 79; RESP 18; O2SAT 98
== END 2021-02-24 11:38 | disposition home or self-care (01) ==
LOC: SC.PAINP 10:43
PROVIDERS: PCP Emergency Medicine; Visit Provider Anesthesiology Pain Medicine
DX: M51.16 Intervertebral disc disorders with radiculopathy, lumbar region (principal); E78.5 Hyperlipidemia, unspecified; I10 Essential (primary) hypertension; J44.9 Chronic obstructive pulmonary disease, unspecified; M19.90 Unspecified osteoarthritis, unspecified site; F32.9 Major depressive disorder, single episode, unspecified; Z72.0 Tobacco use; F41.9 Anxiety disorder, unspecified
CPT/HCPCS: 62323; J1040; Q9966

== ENCOUNTER → 2021-03-23 11:15 | Outpatient (POV) | payer OTHER, SELFPAY ==
[2021-03-23 11:34] VITALS: BP 160/97; PULSE 82; RESP 18; O2SAT 97; BMI 33.6
--- NOTE | 2021-03-23 11:40 | HMH.PAINSOAP ---
[facility] Pain Management SOAP Note Subjective:: Patient is a pleasant 50-year-old white male who presents today for follow-up. He has lumbar epidural steroid injection on the 2020. He is rating his pain today a 6. He does feel as though he got some relief from the injection. He is continuing to have mild discomfort and aching sensation in his low back. It was discussed that he would be an appropriate candidate for spinal cord stimulation therapy. At this time he is wanting to hold off on any further treatments. With the Covid virus numbers increasing lately he is wanting to avoid appointments in the hospital setting. He is requesting a muscle relaxer to help with discomfort. He states that he has been prescribed Flexeril in the past that did help with his back pain. Patient is currently prescribed tramadol 50 mg 3 times a day from our office. His Oscar number is [id number] he has an active morphine equivalent of 0. Objective:: Physical exam General: Alert and oriented x3 no acute distress, pleasant and cooperative, [on room air] Lungs: Respirations even and unlabored, symmetrical chest expansion Eyes: PERRL Musculoskeletal: Flexion and extension of the lumbar spine nonguarded, deep tendon reflexes normal, strength in upper and lower extremities 5 out of 5 normal gait noted Neurological: Speech clear, gastrointestinal technician equal, no gross sensory deficit Assessment:: Degenerative disc disease lumbar spine, lumbar radiculopathy Plan:: We will prescribe the patient Flexeril 10 mg 3 times a day. We will need his follow-up on an as-needed basis at this time. The patient is aware that he would be an appropriate candidate for spinal cord stimulation therapy in the future. He is willing to hold off on any further treatments until the Covid numbers begin to decrease again. Dr. Mosley has reviewed this note and agrees with this plan of care. This note was dictated using voice recognition software and make contain errors or omissions. [facility] History Medical History: Reports:: Chronic Obstructive Pulmonary Disease (COPD), Depression, Hyperlipidemia, Hypertension Denies:: Cancer, Diabetes Mellitus Type 1, Diabetes Mellitus Type 2, Internal Pacemaker, MRSA, Seizures *Have you ever received a pneumonia vaccine?: No *Have you received a flu vaccine this season?: No Other Medical History: Reports: Arthritis, Other. Denies: Blood Transfusion Reaction Laterality Cases: Left: ACL Repair, Arthroscopy Knee, Right: Arthroscopy Shoulder, Bilateral: Other Other Surgeries: Yes: No Previous Surgery, Hernia Repair (baby hernia repair), Sinus Surgery, Other (sx wrist plates screws). No: Pacemaker Amputation: No Fractures: Yes (R wrist x2) - *Social History Smoking Status: Current every day smoker Tobacco Type: cigarettes # Packs/Day (cigarettes): 1 Alcohol Intake: never Alcohol Intake Frequency:: a few times a month Substance Use Type: marijuana *Occupational Status:: unemployed Housing: house Household Members: significant other, family *Travel in the last 8 weeks: None - Psychiatric History Pschychiatric History:: Reports:: Depression Family Hx:: Cancer, Coronary Artery Disease, Diabetes, Heart Attack, Hyperlipidemia, Hypertension
== END ==
PROVIDERS: PCP Emergency Medicine; Visit Provider Family Medicine
DX: M51.16 Intervertebral disc disorders with radiculopathy, lumbar region (principal)
CPT/HCPCS: 99212; G0463

== ENCOUNTER 2021-04-24 09:54 | Emergency (ER) | payer OTHER, SELFPAY ==
[2021-04-24 10:30] VITALS: BP 139/86; PULSE 76; RESP 18; TEMP 36.6; O2SAT 96; BMI 33.6
[2021-04-24 11:05] VITALS: BP 139/86; PULSE 76; RESP 18; TEMP 36.6; O2SAT 96
--- NOTE | 2021-04-24 11:36 | HMH.EDUTC ---
[facility] [place] Dis[place] Clinical Impression: Encounter for laboratory testing for COVID-19 virus Disposition: Home, Self-Care Condition on Discharge: Good Instructions: DI for Hives, DI for COVID-19 (Suspected or Confirmed ), Preventing the Spread of Coronavirus Discharge Instructions Additional Instructions: *Monitor Temp, Over the counter Motrin or Tylenol as directed/as needed Tylenol every 4 hours and Motrin every 6 hours (as long as your family doctor has told you that you can take it) for fever or pain. and straight to ER if unable to lower temp less than 101.0 after medication given *Warm salt water gargles may help to soothe the throat *Throat Lozenges *Warm fluids like tea with honey may help to soothe the throat *Sleep elevated *Humidifier/Vaporizer Follow up IMMEDIATELY for new or worsening symptoms or no Noticeable improvement over the next 48-72 hours. 911 for difficulty breathing or swallowing You were tested for today for COVID19 your test result should be back in the next 24-48 hours, You was given instructions to [facility] for your results if you do not have internet access you may call the [facility] You was given a handout with instructions for Self Quarantine and Self isolation for while you wait on test results and what to do if they are positive If you are positive the Health Dept will be contacting you also Make sure to take your Vitamins Vit. C Vit D and Zinc if you can take them Referrals: Daniel Peña MD [Primary Care Provider] - As needed Forms: Work/School Release Medical Decision Making - Oscar Inquiry Pt receiving controlled substance: No Oscar was queried for this patient: No Vital Signs: 04/24/21 10:30 04/24/21 11:05 Temperature 97.8 F 97.8 F Temperature Source Oral Pulse Rate 76 Pulse Rate [Right Brachial] 76 Respiratory Rate 18 18 Blood Pressure 139/86 Blood Pressure [Right Arm] 139/86 Blood Pressure Mean [Right Arm] 103 Blood Pressure Source [Right Arm] Automatic Cuff Blood Pressure Position [Right Arm] Sitting 02 Sat by Pulse Oximetry 96 Oxygen Delivery Method Room Air Orders (Tests/Meds): ED MEDICATIONS Discontinued Medications Generic Name Dose Route Start Last Admin Trade Name Freq PRN Reason Stop Dose Admin Methylprednisolone Sodium Succinate 125 mg 04/24/21 11:38 04/24/21 11:42 Methylprednisolone Sod Succ 125mg Vial IM 04/24/21 11:39 125 mg ONCE ONE Administration [facility] [place] HPI - General Stated complaint: COVID TEST/SYMPTOMS Time Seen by Provider: 04/24/21 11:36 Mode of Arrival: Ambulatory Source of Information: Patient Limitations: No Limitations Description of Symptoms (Recalled from Triage Doc. by RN): PATIENT C/O CONGESTION, SCRATCHY THROAT. COVID TEST HEENT Symptoms (Recalled from RN notes): Yes Resp Symptoms (Recalled from RN notes): No Skin Symptoms (Recalled from RN notes): No MS Symptoms (Recalled from RN notes): No Functional Status (Recalled from RN notes): WNL - History of Present Illness Provider Complaint: Patient states that he wanted to get tested for COVID States that he has been having nasal congestion, scratchy throat and feeling achy State that he has also been having hives on his legs like he has had before and had to get Steriod shot for - Related Data Home Medications Medication Instructions Recorded Confirmed Cyclobenzaprine HCl [Flexeril 10mg 10 mg PO DAILY 01/13/21 02/24/21 tablet] Tramadol HCl [Tramadol 50mg 50 mg PO TID 02/24/21 02/24/21 Tab] methylPREDNISolone [Medrol] 4 mg PO DIRECTED 02/24/21 02/24/21 Previous Rx's Medication Instructions Recorded hydrOXYzine pamoate [Vistaril 25mg 25 mg PO Q6HP PRN #30 cap 02/14/21 capsule] Cyclobenzaprine HCl [Flexeril 10mg 10 mg PO TID PRN 30 Days #90 tab 03/23/21 tablet] Allergies Allergy/AdvReac Type Severity Reaction Status Date / Time No Known Allergies Allergy Verified 02/24/21 11:10 - [place]
== END 2021-04-24 12:01 | disposition home or self-care (01) ==
PROVIDERS: Emergency Provider Nurse Practitioner; PCP Emergency Medicine
DX: Z20.822 Contact with and (suspected) exposure to COVID-19 (principal); J02.9 Acute pharyngitis, unspecified; F33.1 Major depressive disorder, recurrent, moderate; E78.5 Hyperlipidemia, unspecified; I10 Essential (primary) hypertension; F17.210 Nicotine dependence, cigarettes, uncomplicated; Z79.899 Other long term (current) drug therapy
CPT/HCPCS: 96372; 99202; G0463; U0003

== ENCOUNTER 2021-12-11 18:53 | Emergency (ER) | payer OTHER, SELFPAY ==
[2021-12-11 19:34] VITALS: BP 141/87; PULSE 80; RESP 19; TEMP 37.1; O2SAT 97; BMI 34.2
--- NOTE | 2021-12-11 20:00 | HMH.EDUTC ---
[facility] Disposition Clinical Impression: Bronchitis Sinusitis Qualifiers: Sinusitis location: unspecified location Chronicity: unspecified Qualified Code(s): J32.9 - Chronic sinusitis, unspecified Disposition: Home, Self-Care Condition on Discharge: Good Instructions: Sinusitis, DI for Sinusitis Additional Instructions: ? Start antibiotic today. Be sure to complete entire prescription even if feeling better ? Monitor temp. Tylenol every 4 hours as needed and / or ibuprofen every 6 hours as needed ( As long as your primary care physician has told you that it ok to take both. For fever/aches/pains ER if no less than 101 despite Tylenol or Motrin ? Humidifier/vaporizer or hot steamy shower ? Inhaler every 4-6 hours as needed like we discussed. If unsure how to use it, ask pharmacist to demonstrate how. Should help open airways and improve cough, wheezing, and shortness of breath *Promethazine DM cough syrup will cause drowsiness. Use only at night. No driving, operating machinery or caring for small children after taking it *Start steroid tomorrow. Helps with inflammation therefore, cough and wheezing. Follow directions on the package. Reviewed side effects. Patient reports taking them before. Follow up IMMEDIATELY for new or worsening of symptoms OR no noticeable improvement over the next 48-72 hours. 911 immediately for any life threatening symptoms such as chest pain or difficulty breathing Prescriptions: Albuterol Sulfate [Proventil-HFA 90mcg/puff Inh] 1 - 2 puffs IH Q4HP PRN #1 each PRN Reason: Shortness Of Breath Transmission Status: Received by [facility] predniSONE [Prednisone 20mg Tab] 20 mg PO BID #10 tab Transmission Status: Received by [facility] Promethazine/Dextromethorphan [Promethazine-Dm Syrup] 2.5 - 5 ml PO Q6H PRN #150 ml PRN Reason: Cough Transmission Status: Received by [facility] Azithromycin [Z-Kaz 250mg Tab] 250 mg PO DIRECTED #6 tab Transmission Status: Received by [facility] Referrals: Daniel Peña MD [Primary Care Provider] - As needed Time of Disposition: 20:15 Medical Decision Making - Oscar Inquiry Pt receiving controlled substance: No Oscar was queried for this patient: No Vital Signs: 12/11/21 19:34 Temperature 98.7 F Temperature Source Oral Pulse Rate [Right Radial] 80 Respiratory Rate 19 Blood Pressure [Right Arm] 141/87 H Blood Pressure Mean [Right Arm] 105 Blood Pressure Source [Right Arm] Automatic Cuff Blood Pressure Position [Right Arm] Sitting 02 Sat by Pulse Oximetry 97 Oxygen Delivery Method Room Air Orders (Tests/Meds): ED MEDICATIONS Discontinued Medications Generic Name Dose Route Start Last Admin Trade Name Denice PRN Reason Stop Dose Admin Ceftriaxone Sodium 1 gm 12/11/21 20:06 12/11/21 20:14 Ceftriaxone 1gm Vial IM 12/11/21 20:07 1 gm ONCE ONE Administration Lidocaine HCl 0 ml 12/11/21 20:06 12/11/21 20:14 Lidocaine 1% 5ml Pf Vial IM 12/11/21 20:07 2.1 ml ONCE ONE Administration Methylprednisolone Sodium Succinate 125 mg 12/11/21 20:06 12/11/21 20:13 Methylprednisolone Sod Succ 125mg Vial IM 12/11/21 20:07 125 mg ONCE ONE Administration Medical Decision Narrative: patient states that he has taken azithromycin and prednisone in the past without reactions or complications [facility] HPI - General Stated complaint: soa, sweating, sore throat, congestion Time Seen by Provider: 12/11/21 20:00 Mode of Arrival: Ambulatory Source of Information: Patient Limitations: No Limitations Description of Symptoms (Recalled from Triage Doc. by RN): C/O SOA, nasal congestion, productive cough x2 weeks HEENT Symptoms (Recalled from RN notes): Yes (Sinus congestion) Resp Symptoms (Recalled from RN notes): Yes (Productive cough, SOA) Skin Symptoms (Recalled from RN notes): No MS Symptoms (Recalled from RN notes): No Functional Status (Recalled from RN notes): n/a - History of Pre
[2021-12-11 20:33] VITALS: BP 141/87; PULSE 80; RESP 19; TEMP 37.1; O2SAT 97
== END 2021-12-11 20:35 | disposition home or self-care (01) ==
PROVIDERS: Emergency Provider Nurse Practitioner; PCP Emergency Medicine
DX: J20.9 Acute bronchitis, unspecified (principal); J32.9 Chronic sinusitis, unspecified; J44.9 Chronic obstructive pulmonary disease, unspecified; E78.5 Hyperlipidemia, unspecified; I10 Essential (primary) hypertension; F17.210 Nicotine dependence, cigarettes, uncomplicated; Z79.899 Other long term (current) drug therapy
CPT/HCPCS: 96372; 99213; G0463; J0696

== ENCOUNTER 2022-06-01 18:58 | Emergency (ER) | payer OTHER, SELFPAY ==
[2022-06-01 19:14] VITALS: BP 116/70; PULSE 85; RESP 18; TEMP 36.8; O2SAT 97; BMI 33.7
--- NOTE | 2022-06-01 19:20 | EXP.UTC ---
Discharge Plan Disposition Patient Disposition: Home, Self-Care Condition: Good Prescriptions Prescriptions: New hydroxyzine pamoate 25 mg capsule 25 mg PO TID PRN (Reason: itching) Qty: 9 0RF methylprednisolone [Medrol (Kaz)] 4 mg tablets,dose pack See Rx Instructions .Route .COMPLEX 6 Days Qty: 21 0RF Rx Instructions: taper pack; No Action fexofenadine-pseudoephedrine [Huan-D 24 Hour] 180-240 mg Tablet Extended Release 24 Hr 1 tab PO DAILY Referrals Follow up/Referrals: Daniel Peña MD [Primary Care Provider] - See instructions Activity Restrictions/Add. Instructions Additional Instructions/Restrictions: Warm soaks in warm water with epson salt may help with pain and pulled muscle Reurn if needed Take medication as prescribed Straight to ER if any life threatening symptoms Hold your huan D while taking Hydroxyzine then after you finish taking Hydroxyzine you may restart your Huan D do not take these medications together Clinical Impressions Clinical Impression: Urticaria Discharge ED Provider: Susan Heart [facility] [place] HPI General Stated complaint: HIVES,GROIN PAIN Mode of Arrival: Ambulatory Source of Information: Patient Limitations: No Limitations Time Seen by Provider: 06/01/22 19:21 Description of Symptoms (Recalled from Triage Doc. by RN): pt comes in with c/o hives all over, worse on his right leg. symptoms ongoing for a few weeks. pt states it may be due to stress. pt also c/o groin pain, possibly pulled muscle. HEENT Symptoms (Recalled from RN notes): No Resp Symptoms (Recalled from RN notes): No Skin Symptoms (Recalled from RN notes): Yes MS Symptoms (Recalled from RN notes): Yes Functional Status (Recalled from RN notes): n/a History of Present Illness Provider Complaint: Patient states that at times he will break out in hives and have to come in and get something to help them clear up States that he has been under stress and is broke out all over his legs and they are itching him to States that also a couple weeks ago he moved wrong and feels like he pulled his groin muscle but doesnt really want seen for that just wants something to help with the hives and itching Related Data Home Medications Medication Instructions Recorded Confirmed fexofenadine-pseudoephedrine ER 1 tab PO DAILY Allergy symptoms 06/01/22 06/01/22 180 mg-240 mg tablet,ext.release 24 hr (Huan-D 24 Hour) Previous Rx's Medication Instructions Recorded hydroxyzine pamoate 25 mg capsule 25 mg PO TID PRN itching #9 caps 06/01/22 methylprednisolone 4 mg tablets in See Rx Instructions .Route 06/01/22 a dose pack (Medrol (Kaz)) .COMPLEX 6 days #21 tabs Allergies Allergy/AdvReac Type Severity Reaction Status Date / Time No Known Allergies Allergy Verified 06/01/22 19:17 Worker's Comp Is this a Worker's Comp case?: No PFSH [facility] Medical History (Updated 06/01/22 @ 19:35 by Susan Heart APRN) Chronic bronchitis Hyperlipidemia Urinary hesitancy Vitamin D deficiency Social History Smoking Status: Current every day smoker tobacco type: cigarettes packs per day: 1 second hand exposure: No alcohol intake: never substance use type: marijuana current occupational status: unemployed Travel in the last 8 weeks: None household members: significant other and family housing: house current occupation: self employed current occupational exposures/hazards: No caffeine: Yes ROS Obtained: Yes All systems reviewed & no additional complaints except as documented and Yes Systems reviewed as appropriate & no additional complaints except as documented Constitutional Constitutional: Reports system reviewed and no additional complaints, except as documented and Reports as per HPI ENT Ears, Nose, Mouth, and Throat: Reports system reviewed and no additional complaints, except as documented and Reports as per HPI
[2022-06-01 19:49] VITALS: BP 116/70; PULSE 85; RESP 18; TEMP 36.8
== END 2022-06-01 20:02 | disposition home or self-care (01) ==
PROVIDERS: Emergency Provider Nurse Practitioner; PCP Emergency Medicine
DX: L50.9 Urticaria, unspecified (principal)
CPT/HCPCS: 96372; 99212; G0463

== ENCOUNTER 2022-07-09 10:59 | Emergency (ER) | payer OTHER, SELFPAY ==
[2022-07-09 12:15] VITALS: BP 140/83; PULSE 82; RESP 18; TEMP 36.7; O2SAT 98; BMI 33.6
[2022-07-09 12:32] LABS: UTC Strep Screen (Rapid) Negative (Negative)
--- NOTE | 2022-07-09 13:00 | EXP.UTC ---
Discharge Plan Disposition Patient Disposition: Home, Self-Care Condition: Good Prescriptions Prescriptions: New amoxicillin 875 mg tablet 875 mg PO BID Qty: 20 0RF No Action fexofenadine-pseudoephedrine [Anne-D 24 Hour] 180-240 mg Tablet Extended Release 24 Hr 1 tab PO DAILY hydroxyzine pamoate 25 mg capsule 25 mg PO TID PRN (Reason: itching) Qty: 9 0RF methylprednisolone [Medrol (Kaz)] 4 mg tablets,dose pack See Rx Instructions .Route .COMPLEX 6 Days Qty: 21 0RF Rx Instructions: taper pack; Referrals Follow up/Referrals: Daniel Peña MD [Primary Care Provider] - See instructions Activity Restrictions/Add. Instructions Additional Instructions/Restrictions: *Monitor Temp, Over the counter Motrin or Tylenol as directed/as needed Tylenol every 4 hours and Motrin every 6 hours (as long as your family doctor has told you that you can take it) for fever or pain. and straight to ER if unable to lower temp less than 101.0 after medication given *Warm salt water gargles may help to soothe the throat *Throat Lozenges? *Warm fluids like tea with honey may help to soothe the throat? *Sleep elevated *Humidifier/Vaporizer Your throat swab was sent for culture. Those results are typically sent to your primary care. Be sure to follow up in 2-3 days with your family doctor/primary care physician if no improvement so they can review those result and treat if necessary. If you don?t have a primary care doctor, I recommend you get one but in the mean time, you will have to return to a walk in clinic Follow up IMMEDIATELY for new or worsening symptoms or no Noticeable improvement over the next 48-72 hours. 911 for difficulty breathing or swallowing Clinical Impressions Clinical Impression: URI (upper respiratory infection) Instructions Patient Instructions: DI for Strep Throat, Strep Throat Discharge ED Provider: Susan Heart [facility] [place] HPI General Stated complaint: sore throat Mode of Arrival: Ambulatory Source of Information: Patient Limitations: No Limitations Time Seen by Provider: 07/09/22 13:00 Description of Symptoms (Recalled from Triage Doc. by RN): PATIENT C/O SORE THROAT X 2 DAYS HEENT Symptoms (Recalled from RN notes): Yes Resp Symptoms (Recalled from RN notes): No Skin Symptoms (Recalled from RN notes): No MS Symptoms (Recalled from RN notes): No Functional Status (Recalled from RN notes): WNL History of Present Illness Provider Complaint: Patient state that he has had sore throat for the last 3 days State that his and kids had strep throat last week and he feels like he may have it now too Related Data Home Medications Medication Instructions Recorded Confirmed fexofenadine-pseudoephedrine ER 1 tab PO DAILY Allergy symptoms 06/01/22 06/01/22 180 mg-240 mg tablet,ext.release 24 hr (Anne-D 24 Hour) Previous Rx's Medication Instructions Recorded hydroxyzine pamoate 25 mg capsule 25 mg PO TID PRN itching #9 caps 06/01/22 methylprednisolone 4 mg tablets in See Rx Instructions .Route 06/01/22 a dose pack (Medrol (Kaz)) .COMPLEX 6 days #21 tabs amoxicillin 875 mg tablet 875 mg PO BID #20 tabs 07/09/22 Allergies Allergy/AdvReac Type Severity Reaction Status Date / Time No Known Allergies Allergy Verified 06/01/22 19:17 Worker's Comp Is this a Worker's Comp case?: No PFSH PFSH Medical History (Updated 07/09/22 @ 13:07 by Susan Heart APRN) Chronic bronchitis Hyperlipidemia Hypertension Urinary hesitancy Vitamin D deficiency Social History (Updated 07/09/22 @ 12:30 by Chrissy Christensen RN) Smoking Status: Current every day smoker tobacco type: cigarettes packs per day: 1 second hand exposure: No alcohol intake: never substance use type: marijuana current occupational status: unemployed Travel in the last 8 weeks: None household members: significant other and family housing: house current occ
[2022-07-09 13:16] VITALS: BP 140/83; PULSE 82; RESP 18; TEMP 36.7; O2SAT 98
== END 2022-07-09 13:18 | disposition home or self-care (01) ==
PROVIDERS: Emergency Provider Nurse Practitioner; PCP Emergency Medicine
DX: J06.9 Acute upper respiratory infection, unspecified (principal)
CPT/HCPCS: 87880; 99212; G0463

== ENCOUNTER 2022-07-18 09:17 | Emergency (ER) | payer OTHER, SELFPAY ==
[2022-07-18 09:40] VITALS: BP 151/90; PULSE 87; RESP 18; TEMP 36.6; O2SAT 98; BMI 33.0
--- NOTE | 2022-07-18 09:59 | EXP.UTC ---
Discharge Plan Disposition Patient Disposition: Home, Self-Care Condition: Good Prescriptions Prescriptions: New triamcinolone acetonide 0.1 % cream 1 applic topical BID Qty: 30 0RF Rx Instructions: apply to rash hydroxyzine pamoate 25 mg capsule 25 mg PO TID PRN (Reason: itching) Qty: 15 0RF amoxicillin 875 mg tablet 875 mg PO BID Qty: 14 0RF No Action fexofenadine-pseudoephedrine [Huan-D 24 Hour] 180-240 mg Tablet Extended Release 24 Hr 1 tab PO DAILY hydroxyzine pamoate 25 mg capsule 25 mg PO TID PRN (Reason: itching) Qty: 9 0RF methylprednisolone [Medrol (Kaz)] 4 mg tablets,dose pack See Rx Instructions .Route .COMPLEX 6 Days Qty: 21 0RF Rx Instructions: taper pack; amoxicillin 875 mg tablet 875 mg PO BID Qty: 20 0RF Referrals Follow up/Referrals: Daniel Peña MD [Primary Care Provider] - See instructions Activity Restrictions/Add. Instructions Additional Instructions/Restrictions: Use cream on rash as directed Discard destroyed antibiotics you was sent in replacements Take hydroxyzine as prescribed but do not take your huan d while taking these Follow up with your Family Doctor Clinical Impressions Clinical Impression: Contact dermatitis Instructions Patient Instructions: Contact Dermatitis, Triamcinolone Topical, Hydroxyzine Discharge ED Provider: Susan Heart [facility] General Stated complaint: rash on Rt arm, congestion Mode of Arrival: Ambulatory Source of Information: Patient Limitations: No Limitations Time Seen by Provider: 07/18/22 09:59 Description of Symptoms (Recalled from Triage Doc. by RN): PATIENT C/O RASH ON BILATERAL ARMS X 3 DAYS HEENT Symptoms (Recalled from RN notes): No Resp Symptoms (Recalled from RN notes): No Skin Symptoms (Recalled from RN notes): Yes MS Symptoms (Recalled from RN notes): No Functional Status (Recalled from RN notes): WNL History of Present Illness Provider Complaint: Patient states that he has been having rash on the inside of both arms for several days that is getting worse States that the itching is killing him States that also he was on Augmentin and they dog eat his bottle and the medication was destroyed due to dog drool and wanted to see if he could get somemore to finish out his course he had the chewed up bottle with broken romano with him Related Data Home Medications Medication Instructions Recorded Confirmed fexofenadine-pseudoephedrine ER 1 tab PO DAILY Allergy symptoms 06/01/22 06/01/22 180 mg-240 mg tablet,ext.release 24 hr (Huan-D 24 Hour) Previous Rx's Medication Instructions Recorded hydroxyzine pamoate 25 mg capsule 25 mg PO TID PRN itching #9 caps 06/01/22 methylprednisolone 4 mg tablets in See Rx Instructions .Route 06/01/22 a dose pack (Medrol (Kaz)) .COMPLEX 6 days #21 tabs amoxicillin 875 mg tablet 875 mg PO BID #20 tabs 07/09/22 amoxicillin 875 mg tablet 875 mg PO BID #14 tabs 07/18/22 hydroxyzine pamoate 25 mg capsule 25 mg PO TID PRN itching #15 caps 07/18/22 triamcinolone acetonide 0.1 % 1 applic topical BID #30 grams 07/18/22 topical cream Allergies Allergy/AdvReac Type Severity Reaction Status Date / Time No Known Allergies Allergy Verified 06/01/22 19:17 Worker's Comp Is this a Worker's Comp case?: No PFSH PFSH Medical History (Updated 07/18/22 @ 10:06 by Susan Heart APRN) Chronic bronchitis Hyperlipidemia Hypertension Urinary hesitancy Vitamin D deficiency Social History (Updated 07/18/22 @ 09:57 by Chrissy Christensen RN) Smoking Status: Current every day smoker tobacco type: cigarettes packs per day: 1 second hand exposure: No alcohol intake: never substance use type: marijuana current occupational status: unemployed Travel in the last 8 weeks: None household members: significant other and family housing: house current occupation: self employed current occupational exposures/hazards: No caf
[2022-07-18 10:08] VITALS: BP 151/90; PULSE 87; RESP 18; TEMP 36.6; O2SAT 98
== END 2022-07-18 10:10 | disposition home or self-care (01) ==
PROVIDERS: Emergency Provider Nurse Practitioner; PCP Emergency Medicine
DX: L25.9 Unspecified contact dermatitis, unspecified cause (principal)
CPT/HCPCS: 99212; G0463

== ENCOUNTER 2023-11-22 11:50 | Emergency (ER) | payer OTHER, SELFPAY ==
[2023-11-22 12:00] VITALS: BP 145/81; PULSE 77; RESP 20; TEMP 36.5; O2SAT 98; BMI 29.7
--- NOTE | 2023-11-22 12:02 | EXP.UTC ---
Discharge Plan Disposition Patient Disposition: Home, Self-Care Condition: Good Prescriptions Prescriptions: New methylprednisolone 4 mg Tablets,Dose Pack 4 mg PO DIRECTED 6 Days Qty: 21 0RF Rx Instructions: Take 1 pack as directed for 6 days No Action fexofenadine-pseudoephedrine [Anne-D 24 Hour] 180-240 mg Tablet Extended Release 24 Hr 1 tab PO DAILY Referrals Follow up/Referrals: Conner King DO [Staff Physician] - See instructions Sukhjinder Muniz DO [Primary Care Provider] - See instructions Activity Restrictions/Add. Instructions Additional Instructions/Restrictions: Rest the extremity, Elevate the extremity as tolerated while you are resting. Take the medication as directed. Follow up with Dr. King (orthopedics) if you continue to have symptoms. I put in a referral but you need to call his office and schedule an appointment. Follow up with your regular doctor. GO TO THE ER FOR ANY WORSENING SYMPTOMS Clinical Impressions Clinical Impression: Left knee pain, Gout Stand Alone Forms Stand Alone Forms: Work/School Release Instructions Patient Instructions: DI for Gout, DI for Knee Pain Discharge ED Provider: Adams Echevarria [facility] General Stated complaint: left knee pain Time Seen by Provider: 11/22/23 12:02 History of Present Illness Provider Complaint: He states that for the past 3 days he has had worsening left knee pain and swelling. He denies any injury. He states that he does have a history of gout, but this doesn't feel like his normal gout symptoms. Related Data Home Medications Medication Instructions Recorded Confirmed fexofenadine-pseudoephedrine ER 1 tab PO DAILY Allergy symptoms 06/01/22 11/22/23 180 mg-240 mg tablet,ext.release 24 hr (Anne-D 24 Hour) Previous Rx's Medication Instructions Recorded methylprednisolone 4 mg tablets in 4 mg PO DIRECTED 6 days #21 tabs 11/22/23 a dose pack Allergies Allergy/AdvReac Type Severity Reaction Status Date / Time No Known Allergies Allergy Verified 06/01/22 19:17 [facility] Disclaimer: The information contained in this section may have been updated after the patient was seen, as this information can be updated by other users. Medical History (Updated 11/22/23 @ 13:31 by Adams Echevarria APRN) Hypertension Vitamin D deficiency Hyperlipidemia Urinary hesitancy Chronic bronchitis Social History (Updated 07/18/22 @ 09:57 by Chrissy Christensen RN) Smoking Status: Current every day smoker tobacco type: cigarettes packs per day: 1 second hand exposure: No alcohol intake: never substance use type: marijuana current occupational status: unemployed Travel in the last 8 weeks: None household members: significant other and family housing: house current occupation: self employed current occupational exposures/hazards: No caffeine: Yes ROS Obtained: Yes All systems reviewed & no additional complaints except as documented Constitutional Constitutional: Denies chills and Denies fever(s) Eyes Eyes: Denies eye discharge ENT Ears, Nose, Mouth, and Throat: Denies dizziness, Denies otalgia and Denies sore throat Cardiovascular Cardiovascular: Denies chest pain Respiratory Respiratory: Denies shortness of breath, Denies chest congestion, Denies cough, Denies stridor and Denies wheezing Gastrointestinal Gastrointestingal: Denies nausea or vomiting Musculoskeletal Musculoskeletal: Reports as per HPI Integumentary/Breasts Skin/Breast: Denies redness, Denies rash and Denies wounds Neurologic Neurologic: Denies dizziness and Denies paresthesias Allergic/Immunologic Allergic/Immunologic: Denies wheezing Physical Exam General General appearance: alert and in no apparent distress Head Head exam: atraumatic, normocephalic and normal inspection Eye Eye exam: Present normal appearance, PERRL and EOMI ENT ENT exam: Present normal exam, normal oropharynx, mucous membranes moist, TM's normal bilaterally and normal external ear exam Neck Neck exam: Present normal inspection, full ROM and trachea midline; Absent meningismus or lymphadenopathy Chest Chest inspection: Present normal inspection and symmetric chest wall rise; Absent tenderness Respiratory Respiratory exam: Present normal lung sounds bilaterally; Absent respiratory distress Cardiovascular Cardiovascular exam: Present regular rate and normal rhythm; Absent JVD Abdominal Exam Abdominal exam: Present soft and normal bowel sounds; Absent distention, tenderness or guarding Extremities Exam Extremities exam: Present normal capillary refill; Absent calf tenderness Expanded Lower Extremity Exam Left: Knee exam: Present full ROM, tenderness and swelling; Absent abrasion, laceration, ecchymosis, deformity, crepitus, dislocation, erythema, effusion, anterior drawer sign, posterior draw sign, pain with valgus, laxity with valgus, pain with varus, laxity with varus or knee extension intact Lower leg exam: Present normal inspection, full ROM and Achilles tendon intact; Absent tenderness or Homans' sign Ankle exam: Present normal inspection and full ROM; Absent tenderness Foot/toe exam: Present normal inspection and full ROM; Absent tenderness Neurovascular/Tendon exam: Present normal capillary refill, normal 2-point discrimination and normal fine/light touch; Absent pulse deficit, motor deficit, sensory deficit, tendon deficit, extremity cold to touch or pallor Gait: observed and limited by pain Back Exam Back exam: Present normal inspection; Absent tenderness Neurological Exam Neurological exam: Present alert and oriented X3 Psychiatric Psychiatric exam: Present normal affect and normal mood Skin Skin exam: Present warm, dry, intact and normal color; Absent erythema Lymphatic Lymphatic Findings: no adenopathy Medical Decision Making Medical Records Medical records reviewed: No I reviewed the patient's medical records. Oscar Inquiry Pt receiving controlled substance: No Lab Data Lab results reviewed: Yes I reviewed the patient's lab results. 11/22/23 12:49 Radiology Data #1: Image(s): Knee Image Reviewed: Yes I reviewed the patient's radiology image and Yes I have reviewed radiologist's interpretation Preliminary Findings: No Fracture Seen FINAL REPORT CLINICAL HISTORY: left knee pain, no injury FINDINGS: Three views of the left knee reveal no evidence of fracture or dislocation. The bony alignment is normal. There are mild degenerative changes. A moderate joint effusion is present. No localized soft tissue abnormality is seen. IMPRESSION: Mild degenerative changes and a moderate joint effusion. Reviewed, Interpreted and Dictated by Richar Carolina III, MD Transcribed by Capri Haro Authenticated and [facility]
--- NOTE | 2023-11-22 12:29 | XR_ITS ---
FINAL REPORT CLINICAL HISTORY: left knee pain, no injury FINDINGS: Three views of the left knee reveal no evidence of fracture or dislocation. The bony alignment is normal. There are mild degenerative changes. A moderate joint effusion is present. No localized soft tissue abnormality is seen. IMPRESSION: Mild degenerative changes and a moderate joint effusion. Reviewed, Interpreted and Dictated by Richar Carolina III, MD Transcribed by Capri Haro Authenticated and [facility]
[2023-11-22 12:59] LABS: Basophils # 0.1 K/mm3 (0-0.2); Basophils % 1.5 % (0.1-2.0); Eosinophils # 0.3 K/mm3 (0.0-0.4); Hematocrit 51.2 % (42.0-52.0); Hemoglobin 16.5 g/dL (14.1-18.0); Lymphocytes # 1.6 K/mm3 (0.7-4.5); Lymphocytes % 23.8 % (10-50); Mean Corpuscular HGB Conc 32.2 g/dL (31.8-35.4); Mean Corpuscular Hemoglobin 32.8 pg (27.0-31.2); Mean Corpuscular Volume 101.9 fl (80-94); Mean Platelet Volume 9.5 fl (7.4-10.4); Monocytes # 0.4 K/mm3 (0.1-1.0); Monocytes % 5.8 % (1.7-9.3); Neutrophils # 4.4 K/mm3 (1.8-7.8); Neutrophils % 63.9 % (37.0-80.0); Platelet Count 164 K/mm3 (142-424); Red Blood Count 5.03 M/mm3 (4.60-6.20); Red Cell Distribution Width 13.3 % (11.5-17.5); White Blood Count 6.8 K/mm3 (4.8-10.8)
[2023-11-22 13:19] LABS: Uric Acid 7.4 mg/dl (3.5-8.5)
[2023-11-22 13:32] VITALS: BP 145/81; PULSE 77; RESP 20; TEMP 36.5; O2SAT 98
== END 2023-11-22 13:36 | disposition home or self-care (01) ==
PROVIDERS: Emergency Provider Nurse Practitioner Family; PCP Internal Medicine
DX: M25.562 Pain in left knee (principal); M10.9 Gout, unspecified; F17.210 Nicotine dependence, cigarettes, uncomplicated; I10 Essential (primary) hypertension; E78.5 Hyperlipidemia, unspecified; M25.462 Effusion, left knee
CPT/HCPCS: 73562; 84550; 85025; 99212; 99214; G0463

== ENCOUNTER 2024-01-17 12:08 | Emergency (ER) | payer SELFPAY ==
[2024-01-17 12:09] VITALS: BP 127/98; PULSE 88; RESP 13; TEMP 36.6; O2SAT 97; BMI 28.6
--- NOTE | 2024-01-17 12:10 | ECG_ITS ---
APPROVED REPORT Exam: Resting ECG HR:81 bpm ECG Measurements Heart Rate 81 AXES MN 180 P 64 QRSd 101 QRS 33 QT 344 T 67 QTc 381 Conclusion SINUS RHYTHM NORMAL ECG UNCONFIRMED REPORT Electronically signed by : Adams Calloway, 01/17/2024 23:16:04
[2024-01-17 12:30] VITALS: BP 140/78; PULSE 69; O2SAT 96
--- NOTE | 2024-01-17 12:34 | PC.NURSE ---
DR BURTON AT BEDSIDE
--- NOTE | 2024-01-17 12:37 | XR_ITS ---
FINAL REPORT CLINICAL HISTORY: Precordial chest pain COMPARISON: 09/14/2019 FINDINGS: No acute pulmonary opacity is present. There is no evidence of effusion or pneumothorax. Mediastinum is unremarkable. Heart size is normal. IMPRESSION: No acute abnormality. Reviewed, Interpreted and Dictated by Nader Lombardo MD Transcribed by Capri Haro Authenticated and . [facility]
--- NOTE | 2024-01-17 12:38 | ED_ITS ---
Discharge Plan Disposition Patient Disposition: Home, Self-Care Condition: Good Prescriptions Prescriptions: New hydroxyzine HCl 25 mg tablet 25 mg PO Q8H PRN (Reason: anxiety) Qty: 30 0RF No Action fexofenadine-pseudoephedrine [Anne-D 24 Hour] 180-240 mg Tablet Extended Release 24 Hr 1 tab PO DAILY methylprednisolone 4 mg Tablets,Dose Pack 4 mg PO DIRECTED 6 Days Qty: 21 0RF Rx Instructions: Take 1 pack as directed for 6 days Activity Restrictions/Add. Instructions Additional Instructions/Restrictions: You were seen in the ED today due to chest pain. Please follow-up with primary care. Return to the ED if symptoms worsen or if new concerning symptoms arise. Thank you. Clinical Impressions Clinical Impression: Chest pain Qualifiers: Chest pain type: unspecified Qualified Code(s): R07.9 - Chest pain, unspecified Discharge ED Provider: Herve Pantoja General Adult HPI General Chief complaint: Anxiety Stated complaint: chest pain Time Seen by Provider: 01/17/24 12:33 Mode of Arrival: Ambulatory Source of Information: Patient Limitations: No Limitations Description of Symptoms (Recalled from ER Triage Doc. by RN): pt presents to ED with c/o possible panic attack. pt reports that he has been under alot of stress recently. today while at lunch he began to have some chest pressure and decided to come into the ED History of Present Illness HPI narrative: Patient is a 53-year-old male with history of HTN, HLD, COPD who presents due to chest pain. Patient states approximately 1 hour prior to arrival while at lunch he began to have chest pressure and lightheadedness. Denies any shortness of breath, nausea. States he is feeling better at this time. Patient believes he may have been having a panic attack. States he has been under a lot of stress recently. Denies any history of significant anxiety. Related Data Home Medications Medication Instructions Recorded Confirmed fexofenadine-pseudoephedrine ER 1 tab PO DAILY Allergy symptoms 06/01/22 11/22/23 180 mg-240 mg tablet,ext.release 24 hr (Anne-D 24 Hour) Previous Rx's Medication Instructions Recorded methylprednisolone 4 mg tablets in 4 mg PO DIRECTED 6 days #21 tabs 11/22/23 a dose pack hydroxyzine HCl 25 mg tablet 25 mg PO Q8H PRN anxiety #30 tabs 01/17/24 Allergies Allergy/AdvReac Type Severity Reaction Status Date / Time No Known Allergies Allergy Verified 06/01/22 19:17 [facility] Disclaimer: The information contained in this section may have been updated after the patient was seen, as this information can be updated by other users. Medical History (Updated 01/17/24 @ 13:59 by Herve Pantoja MD) Hypertension Vitamin D deficiency Hyperlipidemia Urinary hesitancy Chronic bronchitis Social History (Updated 07/18/22 @ 09:57 by Chrissy Christensen RN) Smoking Status: Current every day smoker tobacco type: cigarettes packs per day: 1 second hand exposure: No alcohol intake: never substance use type: marijuana current occupational status: unemployed Travel in the last 8 weeks: None household members: significant other and family housing: house current occupation: self employed current occupational exposures/hazards: No caffeine: Yes ROS Obtained: Yes All systems reviewed & no additional complaints except as documented Physical Exam General General appearance: alert and in no apparent distress Head Head exam: atraumatic, normocephalic and normal inspection Eye Eye exam: Present normal appearance, PERRL and EOMI ENT ENT exam: Present normal exam, normal oropharynx, mucous membranes moist, TM's normal bilaterally and normal external ear exam Neck Neck exam: Present normal inspection, full ROM and trachea midline; Absent meningismus or lymphadenopathy Chest Chest inspection: Present normal inspection and symmetric chest wall rise; Absent tenderness Respiratory Respiratory exam: Present normal lung sounds bilaterally; Absent respiratory distress Cardiovascular Cardiovascular exam: Present regular rate and normal rhythm; Absent JVD Abdominal Exam Abdominal exam: Present soft and normal bowel sounds; Absent distention, tenderness or guarding Extremities Exam Extremities exam: Present normal inspection, full ROM and normal capillary refill; Absent calf tenderness Back Exam Back exam: Present normal inspection; Absent tenderness Neurological Exam Neurological exam: Present alert and oriented X3 Psychiatric Psychiatric exam: Present normal affect and normal mood Skin Skin exam: Present warm, dry, intact and normal color Lymphatic Lymphatic Findings: no adenopathy Medical Decision Making Medical Records Medical records reviewed: Yes I reviewed the patient's medical records. Oscar Inquiry Pt receiving controlled substance: No Vital Signs: 01/17/24 12:09 01/17/24 12:30 01/17/24 13:01 Temperature 97.8 F Temperature Source Oral Pulse Rate 69 61 Pulse Rate [Left Radial] 88 Respiratory Rate 13 16 Blood Pressure 140/78 135/80 Blood Pressure [Right Arm] 127/98 H Blood Pressure Mean 104 Blood Pressure Mean [Right Arm] 107 02 Sat by Pulse Oximetry 97 96 97 Oxygen Delivery Method Room Air Room Air 01/17/24 13:30 Temperature Temperature Source Pulse Rate 60 Pulse Rate [Left Radial] Respiratory Rate 18 Blood Pressure 129/77 Blood Pressure [Right Arm] Blood Pressure Mean 94 Blood Pressure Mean [Right Arm] 02 Sat by Pulse Oximetry 94 L Oxygen Delivery Method Lab Data Lab Results 01/17/24 12:16: WBC 6.4, RBC 5.14, Hgb 16.6, Hct 50.5, MCV 98.3 H, MCH 32.2 H, MCHC 32.8, RDW 13.9, Plt Count 148, MPV 9.9, Neut % (Auto) 64.8, Lymph % (Auto) 25.2, [place] % (Auto) 6.6, Eos % (Auto) 2.2, Baso % (Auto) 1.2, Neut # (Auto) 4.1, Lymph # (Auto) 1.6, [place] # (Auto) 0.4, Eos # (Auto) 0.1, Baso # (Auto) 0.1, Sodium 139, Potassium 3.7, Chloride 104, Carbon Dioxide 27, Anion Gap 11.7, BUN 13, Creatinine 1.20, Estimated Creat Clear 99, Estimated GFR 63, Est GFR ( Amer) 77, Glucose 106 H, Calcium 9.6, Troponin I < 0.01, NT-Pro-B Natriuret Pep 23.3 01/17/24 12:16 01/17/24 12:16 Orders (Tests/Meds): ED MEDICATIONS Discontinued Medications Generic Name Dose Route Start Last Admin Trade Name Freq PRN Reason Stop Dose Admin Hydroxyzine Pamoate 25 mg 01/17/24 12:37 01/17/24 12:53 Hydroxyzine Pamoate 25mg Capsule PO 01/17/24 12:38 25 mg ONCE ONE Administration ORDERS Category Date Time Status CXR --portable [XR chest portable] Stat Exams 01/17/24 12:37 Taken BMP [Basic Metabolic Panel] Stat Lab 01/17/24 12:16 Completed BNP [NT Pro Brain Natriuretic Pep.] Stat Lab 01/17/24 12:16 Completed CBC w/Auto Diff [Complete Blood Count Auto Diff] Stat Lab 01/17/24 12:16 Completed Trop I [Troponin I] Stat Lab 01/17/24 12:16 Completed Troponin I Q3H Lab 01/17/24 15:45 Ordered Troponin I Q3H Lab 01/17/24 18:45 Ordered ECG Data Tracing #1: I reviewed this ECG and interpreted as documented below: EKG obtained and interpreted by me showing normal sinus rhythm with appropriate intervals, normal axis, no signs of acute ischemia. Medical Decision Narrative: In summary, patient is 53-year-old male with HTN, HLD, evaluated in the emergency department today due to chest pain. On arrival, patient is hemodynamically stable with normal vital signs. On examination, patient is resting comfortably in no distress. Differential diagnosis includes but is not limited to ACS, PE, pneumonia, pneumothorax, viral infection, anxiety, musculoskeletal strain. Patient given oral Vistaril. Workup initiated including CBC, BMP, troponin, BNP, CXR. Labs independently interpreted by me and significant for no significant findings, negative troponin. Imaging independently interpreted by me and significant for CXR showing no acute findings. On reevaluation, patient is resting comfortably in no distress. He is appropriate for discharge at this time. Patient counseled on home care, given strict return precautions and agreeable to plan. Critical Care Critical Care Time Critical Care Time: No
[2024-01-17 12:50] LABS: Basophils # 0.1 K/mm3 (0-0.2); Basophils % 1.2 % (0.1-2.0); Eosinophils # 0.1 K/mm3 (0.0-0.4); Eosinophils % 2.2 % (0.1-12.0); Hematocrit 50.5 % (42.0-52.0); Hemoglobin 16.6 g/dL (14.1-18.0); Lymphocytes # 1.6 K/mm3 (0.7-4.5); Lymphocytes % 25.2 % (10-50); Mean Corpuscular HGB Conc 32.8 g/dL (31.8-35.4); Mean Corpuscular Hemoglobin 32.2 pg (27.0-31.2); Mean Corpuscular Volume 98.3 fl (80-94); Mean Platelet Volume 9.9 fl (7.4-10.4); Monocytes # 0.4 K/mm3 (0.1-1.0); Monocytes % 6.6 % (1.7-9.3); Neutrophils # 4.1 K/mm3 (1.8-7.8); Neutrophils % 64.8 % (37.0-80.0); Platelet Count 148 K/mm3 (142-424); Red Blood Count 5.14 M/mm3 (4.60-6.20); Red Cell Distribution Width 13.9 % (11.5-17.5); White Blood Count 6.4 K/mm3 (4.8-10.8)
[2024-01-17] MEDS: hydrOXYzine pamoate 25MG CAPSULE 25 MG PO (12:53)
[2024-01-17 12:56] LABS: Anion Gap 11.7 mEq/L (5-15); Blood Urea Nitrogen 13 mg/dl (9-20); Calcium 9.6 mg/dl (8.4-10.2); Carbon Dioxide 27 mmol/L (22.0-30.0); Chloride 104 mmol/L (98-107); Creatinine Clearance Estimated 99 mL/min (50-200); Estimated Glomerular Filt Rate 63 ml/min (>60); GFR (African American) 77 ML/MIN (>60); Glucose 106 mg/dl (74-100); Potassium 3.7 mmoL/L (3.5-5.1); Sodium 139 mmol/L (136-145)
[2024-01-17 13:01] VITALS: BP 135/80; PULSE 61; RESP 16; O2SAT 97
[2024-01-17 13:06] LABS: NT Pro Brain Natriuretic Pep. 23.3 pg/mL (0-125)
[2024-01-17 13:17] LABS: Troponin I < 0.01 ng/ml (0.00-0.034)
[2024-01-17 13:30] VITALS: BP 129/77; PULSE 60; RESP 18; O2SAT 94
--- NOTE | 2024-01-17 13:57 | PC.NURSE ---
DR RODRIGUEZ AT BEDSIDE TO UPDATE PT
[2024-01-17 14:07] VITALS: BP 129/77; PULSE 56; RESP 13; TEMP 36.6
== END 2024-01-17 14:08 | disposition home or self-care (01) ==
PROVIDERS: Emergency Provider Student in an Organized Health Care Education/Training Program
DX: R07.9 Chest pain, unspecified (principal); R42 Dizziness and giddiness; F17.210 Nicotine dependence, cigarettes, uncomplicated; I10 Essential (primary) hypertension; E78.5 Hyperlipidemia, unspecified
CPT/HCPCS: 71045; 80048; 83880; 84484; 85025; 93005; 99284

== ENCOUNTER 2024-01-24 15:37 | Outpatient (CLI) | payer OTHER, SELFPAY ==
[2024-01-24 16:44] LABS: Chol/HDL Ratio 9.5 (1-3.5); Cholesterol 285 mg/dl (140-200); HDL Cholesterol 30 mg/dl (40-60); Triglycerides 236 mg/dl (30-150); VLDL Cholesterol 47 mg/dL (0-40)
[2024-01-24 16:54] LABS: C-Reactive Protein 11.5 mg/L (0-4); Direct LDL Cholesterol 191.16 mg/dL (100-129)
[2024-01-24 17:00] LABS: 25-OH Vitamin D, Total 24.6 ng/mL (30-100)
[2024-01-24 17:17] LABS: Prostate Specific Ag Screen 0.4 ng/ml (0.0-4.0); Thyroid Stimulating Hormone 2.86 uIU/mL (0.465-4.68)
[2024-01-24 17:36] LABS: Vitamin B12 635 pg/mL (239-931)
[2024-01-24 18:08] LABS: Erythrocyte Sedimentation Rate 6 mm/hr (0-20)
[2024-01-27 16:12] LABS: Hexagonal Phase Phospholipid 2 sec (0-11); Lupus Reflex Interpretation Comment: (.); PTT-LA 44.3 sec (0.0-43.5); dRVVT 38.1 sec (0.0-47.0)
== END 2024-01-24 23:59 | disposition home or self-care (01) ==
PROVIDERS: PCP Family Medicine; Visit Provider Family Medicine
DX: M25.562 Pain in left knee (principal); D75.89 Other specified diseases of blood and blood-forming organs; E55.9 Vitamin D deficiency, unspecified; Z68.29 Body mass index [BMI] 29.0-29.9, adult; I10 Essential (primary) hypertension; F17.210 Nicotine dependence, cigarettes, uncomplicated
CPT/HCPCS: 36415; 80061; 82306; 82607; 84443; 85613; 85651; 86140; 86200; 86225; 86235; 86431; G0103

== ENCOUNTER 2024-08-05 17:23 | Emergency (ER) | payer SELFPAY ==
[2024-08-05 17:54] VITALS: BP 132/71; PULSE 72; RESP 20; TEMP 36.7; O2SAT 98; BMI 30.9
--- NOTE | 2024-08-05 17:54 | EXP.UTC ---
Discharge Plan Disposition Patient Disposition: Home, Self-Care Condition: Good Prescriptions Prescriptions: New benzonatate 100 mg capsule 100 mg PO TIDP PRN (Reason: Cough) Qty: 30 0RF methylprednisolone 4 mg Tablets,Dose Pack 4 mg PO DIRECTED 6 Days Qty: 21 0RF Rx Instructions: Take 1 pack as directed for 6 days amoxicillin-pot clavulanate 875-125 mg Tablet 1 tab PO Q12H Qty: 20 0RF Referrals Follow up/Referrals: Provider,Referral, MD [Primary Care Provider] - See instructions Activity Restrictions/Add. Instructions Additional Instructions/Restrictions: Drink plenty of fluids. Take tylenol or ibuprofen for pain or fever. Take the medications as directed. Follow up with your regular doctor. GO TO THE ER FOR ANY WORSENING SYMPTOMS Don't start the oral steroids (medrol dose pack) until tomorrow since you had the shot here Clinical Impressions Clinical Impression: Sinusitis, Pharyngitis Stand Alone Forms Stand Alone Forms: Work/School Release Instructions Patient Instructions: Sinusitis, DI for Sinusitis, Methylprednisolone, Dexamethasone Injection Print Language Print Language: Yakut Discharge ED Provider: Adams Echevarria [facility] General Stated complaint: sore throat,stuffy head, congestion Time Seen by Provider: 08/05/24 17:54 Related Data Previous Rx's ?Medication ?Instructions ?Recorded amoxicillin 875 mg-potassium 1 tab PO Q12H #20 tabs 08/05/24 clavulanate 125 mg tablet benzonatate 100 mg capsule 100 mg PO TIDP PRN Cough #30 caps 08/05/24 methylprednisolone 4 mg tablets in 4 mg PO DIRECTED 6 days #21 tabs 08/05/24 a dose pack Allergies Allergy/AdvReac Type Severity Reaction Status Date / Time [id number] Reductase Allergy Mild Unknown Verified 01/24/24 14:46 Inhibitor allergy reaction [facility] Disclaimer: The information contained in this section may have been updated after the patient was seen, as this information can be updated by other users. Medical History (Updated 08/05/24 @ 18:36 by Adams Echevarria APRN) Chronic bronchitis Yeast infection URI (upper respiratory infection) PND (post-nasal drip) Wrist fracture Fall Sinusitis Encounter for laboratory testing for COVID-19 virus Contact dermatitis Bronchitis Gout Hypertension Vitamin D deficiency Hyperlipidemia Urinary hesitancy Family History (Updated 01/24/24 @ 14:51 by Cleo Carroll CMA) Other Cancer Coronary artery disease Diabetes Heart attack Hypertension Thyroid disorder Social History (Updated 01/24/24 @ 14:52 by Cleo Carroll CMA) Smoking Status: Current every day smoker tobacco type: cigarettes packs per day: 1 second hand exposure: No alcohol intake: current alcohol intake frequency: a few times a month substance use type: marijuana current occupational status: employed Travel in the last 8 weeks: None household members: significant other and family housing: house current occupation: self employed current occupational exposures/hazards: No caffeine: Yes Have you lived/traveled outside [place] in past 30 days?: No Contact w/someone who lives/traveled outside [place] past 30 days?: No Exposure to someone with infectious disease in past 14 days?: No Do you have a fever (greater than 100.4 F or 38 C)?: No Have you tested positive for COVID-19: No Exposed to someone with COVID-19 in past 14 days?: No Do you have a sore throat?: Yes Do you have a cough?: Yes Do you have any weakness?: No Do you have any diarrhea?: No Are you experiencing any unusual bleeding?: No Do you have any muscle aches/pain?: No Do you have any abdominal pain?: No Are you experiencing loss of taste or smell?: No ROS Obtained: Yes All systems reviewed & no additional complaints except as documented Constitutional Constitutional: Reports chills and Reports fever(s) Eyes Eyes: Denies eye discharge ENT Ears, Nose, Mouth, and Throat: Reports as per HPI Cardiovascular Cardiovascular: Denies chest pain Respiratory Respiratory: Denies chest congestion and Reports cough Gastrointestinal Gastrointestingal: Reports nausea; Denies abdominal pain, constipation, cramping, diarrhea or vomiting Musculoskeletal Musculoskeletal: Denies arthralgias Integumentary/Breasts Skin/Breast: Denies rash Neurologic Neurologic: Denies paresthesias Physical Exam General General appearance: alert and in no apparent distress Head Head exam: atraumatic, normocephalic and normal inspection Eye Eye exam: Present normal appearance, PERRL and EOMI ENT ENT exam: Present mucous membranes moist and normal external ear exam Expanded ENT Exam TM/Canal exam: Bilateral TM: erythema and bulging Nose exam: Absent sinus tenderness Mouth exam: Present normal external inspection; Absent drooling Teeth exam: Present normal inspection Throat exam: Present tonsillar erythema, tonsillomegaly and tonsillar exudate Neck Neck exam: Present normal inspection, full ROM and trachea midline; Absent tenderness, meningismus or lymphadenopathy Chest Chest inspection: Present normal inspection and symmetric chest wall rise; Absent tenderness Respiratory Respiratory exam: Present normal lung sounds bilaterally; Absent respiratory distress, wheezes, stridor or accessory muscle use Cardiovascular Cardiovascular exam: Present regular rate and normal rhythm; Absent systolic murmur or diastolic murmur Abdominal Exam Abdominal exam: Present soft and normal bowel sounds; Absent distention, tenderness, guarding, rebound or rigidity Extremities Exam Extremities exam: Present normal inspection and normal capillary refill; Absent calf tenderness Back Exam Back exam: Present normal inspection and full ROM; Absent tenderness, CVA tenderness (R) or CVA tenderness (L) Neurological Exam Neurological exam: Present alert, oriented X3 and CN II-XII intact Psychiatric Psychiatric exam: Present normal affect and normal mood Skin Skin exam: Present warm, dry, intact and normal color Medical Decision Making Medical Records Medical records reviewed: No I reviewed the patient's medical records. Screening: Per USPSTF and CDC recommendations, given the prevalence of disease in our region, it is our hospital?s policy to screen for HIV and viral Hepatitis for all patients aged 18 and over and those with ongoing risk factors. Oscar Inquiry Pt receiving controlled substance: No Lab Data Lab results reviewed: Yes I reviewed the patient's lab results.
[2024-08-05] MEDS: DEXAMETHASONE 4MG/ML 1ML VIAL 8 MG IM (18:06)
[2024-08-05 18:38] VITALS: BP 132/71; PULSE 72; RESP 20; TEMP 36.7
== END 2024-08-05 18:42 | disposition home or self-care (01) ==
PROVIDERS: Emergency Provider Nurse Practitioner Family
DX: J01.90 Acute sinusitis, unspecified (principal); J02.9 Acute pharyngitis, unspecified
CPT/HCPCS: 96372; 99213; G0381; J1100

== ENCOUNTER 2024-08-15 06:25 | Inpatient (IN) | payer BC, SELFPAY ==
[2024-08-15] VITALS (25 sets, daily range): BP systolic 98–176; BP diastolic 63–114; PULSE 69–90; RESP 16–22; TEMP 36.6–36.9; O2SAT 93–99; BMI 33.0; BMI 30.3
--- NOTE | 2024-08-15 06:27 | ECG_ITS ---
APPROVED REPORT Exam: Resting ECG HR:65 bpm ECG Measurements Heart Rate 65 AXES AZ 210 P 56 QRSd 117 QRS 59 QT 380 T 90 QTc 392 Conclusion SINUS RHYTHM WITH MARKED SINUS ARRHYTHMIA WITH FIRST DEGREE AV BLOCK INFERIOR MYOCARDIAL INFARCTION , POSSIBLY ACUTE [40+ ms Q WAVE AND/OR ST/T ABNORMALITY IN II/aVF] Acute inferior STEMI Electronically signed by : LUCAS PRECIADO, 08/15/2024 07:16:49
--- NOTE | 2024-08-15 06:33 | ED_ITS ---
Discharge Plan Disposition Patient Disposition: Admitted Condition: Serious Clinical Impressions Clinical Impression: Acute ST elevation myocardial infarction (STEMI) of inferior wall Discharge ED Provider: Michele Nolan General Chief Complaint: Chest Pain Stated Complaint: chest pain/back pain Time Seen by Provider: 08/15/24 06:25 History of Present Illness HPI narrative: 53-year-old male presents to the ER for concerns of back pain, diaphoresis. Patient reports he used to be hypertensive but was able to lose over 60 pounds and his hypertension all went away. He does not take any daily prescriptions except currently he is on amoxicillin for recent diagnosis of bronchitis. He states he only has 1 day of this medication left. He reports this morning around 1 AM he had sudden onset back pain between his shoulder blades that woke him up. He states he tried drinking a couple swigs of alcohol to help with the pain but it did not help. He reports he was able to doze back off briefly but the pain worsened and woke him back up. He felt like he was having difficulty breathing and was sweaty so he called EMS. He does report he was recently ill and is currently being treated for bronchitis so he thought maybe his symptoms were related to that, but when he kept getting worse he became worried he could be having something more dangerous. He has never had a heart attack but his mother has. EMS reports that they found him significantly hypertensive, initially his ECG was unclear so they administered aspirin and 1 spray of nitro. They were able to get a more clear ECG which they sent into the STEMI phone and does appear to demonstrate inferior MO. They did not administer any additional nitro after this. They state he continued to be persistently hypertensive. Patient reports no real change in his pain after receiving the nitro. He reports mild nausea but no vomiting, he states he was afraid to get up and out of bed because of the pain he was having so he does not know if he is lightheaded or dizzy. He has no numbness, tingling, or weakness. No other associated symptoms at this time. Related Data Previous Rx's ?Medication ?Instructions ?Recorded amoxicillin 875 mg-potassium 1 tab PO Q12H #20 tabs 08/05/24 clavulanate 125 mg tablet benzonatate 100 mg capsule 100 mg PO TIDP PRN Cough #30 caps 08/05/24 methylprednisolone 4 mg tablets in 4 mg PO DIRECTED 6 days #21 tabs 08/05/24 a dose pack Allergies Allergy/AdvReac Type Severity Reaction Status Date / Time [id number]-[id number] Reductase Allergy Mild Unknown Verified 01/24/24 14:46 Inhibitor allergy reaction [facility] Disclaimer: The information contained in this section may have been updated after the patient was seen, as this information can be updated by other users. Medical History (Updated 08/15/24 @ 06:58 by Michele Nolan MD) Chronic bronchitis Yeast infection URI (upper respiratory infection) PND (post-nasal drip) Wrist fracture Fall Sinusitis Encounter for laboratory testing for COVID-19 virus Contact dermatitis Bronchitis Gout Hypertension Vitamin D deficiency Hyperlipidemia Urinary hesitancy Family History (Updated 01/24/24 @ 14:51 by Cleo Carroll CMA) Other Cancer Coronary artery disease Diabetes Heart attack Hypertension Thyroid disorder Social History (Updated 01/24/24 @ 14:52 by Cleo Carroll CMA) Smoking Status: Current every day smoker tobacco type: cigarettes packs per day: 1 second hand exposure: No alcohol intake: current alcohol intake frequency: a few times a month substance use type: marijuana current occupational status: employed Travel in the last 8 weeks: None household members: significant other and family housing: house current occupation: self employed current occupational exposures/hazards: No caffeine: Yes Have you lived/traveled outside [place] in past 30 days?: No Contact w/someone who lives/traveled outside US past 30 days?: No Exposure to someone with infectious disease in past 14 days?: No Do you have a fever (greater than 100.4 F or 38 C)?: No Have you tested positive for COVID-19: No Exposed to someone with COVID-19 in past 14 days?: No Do you have a sore throat?: No Do you have a cough?: No Do you have any weakness?: No Do you have any diarrhea?: No Are you experiencing any unusual bleeding?: No Do you have any muscle aches/pain?: No Do you have any abdominal pain?: No Are you experiencing loss of taste or smell?: No Other Medical History Have you received the Flu Vaccine for this season: No Have you received the Pneumonia Vaccine: No ROS Obtained: Yes Systems reviewed as appropriate & no additional complaints except as documented Per HPI Physical Exam General General appearance: alert Comment: Appears uncomfortable, in distress, diaphoretic Head Head exam: atraumatic and normocephalic Eye Eye exam: Present PERRL and EOMI ENT ENT exam: Present mucous membranes moist Neck Neck exam: Present normal inspection and full ROM Chest Chest inspection: Present symmetric chest wall rise; Absent tenderness Respiratory Respiratory exam: Present normal lung sounds bilaterally; Absent respiratory distress, wheezes or stridor Cardiovascular Cardiovascular exam: Present regular rate and normal rhythm Abdominal Exam Abdominal exam: Present soft; Absent distention, tenderness, guarding or rebound Extremities Exam Extremities exam: Present full ROM Back Exam Back exam: Absent tenderness Neurological Exam Neurological exam: Present alert and oriented X3; Absent motor sensory deficit Psychiatric Psychiatric exam: Present normal affect and normal mood Skin Skin exam: Present warm and dry HEART Score HEART Score HEART Score assessment performed?: Yes History (anamnesis): Highly suspicious ECG: Significant ST-deviation Age: 45-65 years Risk factors: 1-2 risk factors Troponin: </= normal limit HEART Score: 6 Critical Care Critical Care Time Critical Care Time: Yes Attestation: On 08/15/24, the high probability of a clinically significant, sudden or life threatening deterioration of the following system(s) (cardiac) required my full and direct attention, intervention and personal management. The time I documented below is in addition to time spent performing reported procedures but includes the following listed in this critical care notation. Total Time Total Critical Care Time: 30 Medical Decision Making Medical Records Medical records reviewed: Yes I reviewed the patient's medical records. MR Comment: [facility] note from 08/05/2024 was reviewed. This is when patient was diagnosed with bronchitis. He was prescribed benzonatate, methylprednisolone, and 10 days of Augmentin. Oscar Inquiry Pt receiving controlled substance: No Vital Signs Vital Signs: 08/15/24 06:26 08/15/24 06:30 08/15/24 07:02 Temperature 97.8 F 98.5 F Temperature Source Oral Oral Pulse Rate 77 69 Pulse Rate [Right Radial] 70 Respiratory Rate 18 17 Blood Pressure 159/109 H Blood Pressure [Right Arm] 171/97 H Blood Pressure Mean [Right Arm] 121 Blood Pressure Source [Right Arm] Automatic Cuff Blood Pressure Position [Right Arm] Supine 02 Sat by Pulse Oximetry 99 Oxygen Delivery Method Room Air Room Air Lab Data Labs: Lab Results 08/15/24 06:29: WBC 11.4 H, RBC 5.34, Hgb 17.0, Hct 48.7, MCV 91.2, MCH 31.8 H, MCHC 34.9, RDW 13.4, Plt Count 180, MPV 11.6 H, Neut % (Auto) 56.6, Lymph % (Auto) 28.5, Jess[place] % (Auto) 9.8 H, Eos % (Auto) 3.2, Baso % (Auto) 0.8, Neut # (Auto) 6.5, Lymph # (Auto) 3.2, Jessamine # (Auto) 1.1 H, Eos # (Auto) 0.4, Baso # (Auto) 0.1, Sodium 134 L, Potassium 3.6, Chloride 101, Carbon Dioxide 26, Anion Gap 10.6, BUN 10, Creatinine 1.20, Estimated Creat Clear 105, Estimated GFR 63, Est GFR ( Amer) 77, Glucose 180 H, Calcium 9.4, Total Bilirubin 0.8, AST 32, ALT 20, Alkaline Phosphatase 108, Troponin I 0.01, NT-Pro-B Natriuret Pep 22.5, Total Protein 7.1, Albumin 4.3, Globulin 2.8, Albumin/Globulin Ratio 1.5, Triglycerides 152 H, Cholesterol 259 H, LDL Cholesterol Direct 199.15 H, VLDL Cholesterol 30, HDL Cholesterol 32 L, Cholesterol/HDL Ratio 8.1 H 08/15/24 06:32: VBG pH 7.40, VBG pCO2 35.3, VBG pO2 29.3, VBG HCO3 21.4 L, VBG Total CO2 22.5 L, VBG O2 Saturation 64.4, VBG Base Excess -3.4 L, VBG Lactic Acid 1.9 08/15/24 06:29 08/15/24 06:29 Response Orders (Tests/Meds): ED MEDICATIONS Generic Name Dose Route Start Last Admin Trade Name Freq PRN Reason Stop Dose Admin Diphenhydramine HCl 50 mg 08/15/24 06:45 Diphenhydramine 50mg/Ml Vial IV 08/15/24 06:46 ONCE ONE Fentanyl Citrate 50 mcg 08/15/24 06:45 Fentanyl 100mcg/2ml Vial IV 08/15/24 18:45 Q3MINP PRN Sedation Fentanyl Citrate 25 mcg 08/15/24 06:45 Fentanyl 100mcg/2ml Vial IV 08/15/24 18:45 Q3MINP PRN Sedation Flumazenil 0.2 mg 08/15/24 06:45 Flumazenil 0.1mg/Ml 5ml Vial IV 08/15/24 18:45 NEEDED PRN Sedation Heparin Sodium (Porcine) 10,000 unit 08/15/24 06:45 Heparin 1,000 Units/Ml 10ml Vial (Client Resolution Specialist) IV 08/15/24 10:45 NEEDED PRN Emergency Box Frame Operator Heparin Sodium/Sodium Chloride 3,000 unit 08/15/24 06:45 Heparin 1,000 Units/500ml Ns (Client Resolution Specialist) IV 08/15/24 06:46 ONCE ONE Hydralazine HCl 20 mg 08/15/24 06:45 Hydralazine 20mg/Ml Vial IV 08/15/24 10:45 ONCE PRN sbp>160 Sodium Chloride 1,000 mls @ 25 mls/hr 08/15/24 06:45 Sod Chlor 0.9% 1000ml Bag IV 09/14/24 06:44 .Q25H AASHISH Adenosine 180 mg/ Sodium 90 mls @ 563.36 mls/hr 08/15/24 06:45 Chloride IV 08/15/24 10:45 ONCE PRN fractional flow reserve 180 MCG/KG/MIN Adenosine 90 mg/ Sodium 90 mls @ 1,126.721 mls/hr 08/15/24 06:45 Chloride IV 08/15/24 10:45 ONCE PRN fractional flow reserve 180 MCG/KG/MIN Sodium Chloride 1,000 mls @ 25 mls/hr 08/15/24 06:45 Sod Chloride 0.9% 500ml Bag IV 08/16/24 06:45 .Q25H AASHISH Labetalol HCl 20 mg 08/15/24 06:45 Labetalol 20mg/4ml Syringe IV 08/15/24 10:45 ONCE PRN sbp>160 Lidocaine HCl 20 ml 08/15/24 06:45 Lidocaine 1% 10ml Mdv IJ 08/15/24 06:46 ONCE ONE Lidocaine HCl 20 ml 08/15/24 06:45 Lidocaine 1% 5ml Pf Vial IJ 08/15/24 06:46 ONCE ONE Midazolam HCl 1 mg 08/15/24 06:45 Midazolam 2mg/2ml Vial IV 08/15/24 18:45 Q3MINP PRN Sedation Midazolam HCl 1 mg 08/15/24 06:45 Midazolam Hcl 1mg/Ml 5ml Vial IV 08/15/24 18:45 Q3MINP PRN Sedation Naloxone HCl 0.4 mg 08/15/24 06:45 Naloxone 0.4mg/Ml Vial IV 08/15/24 18:45 Q5MINP PRN Decreased Respirations Nitroglycerin 800 mcg 08/15/24 06:45 Nitroglycerin 800mcg/8ml Syr (Client Resolution Specialist) IA 08/15/24 10:45 NEEDED PRN Emergency Box Frame Operator Protamine Sulfate 50 mg 08/15/24 06:45 Protamine Sulfate 50mg/5ml Vial (Client Resolution Specialist) IV 08/15/24 10:45 ONCE PRN act>200 Sodium Chloride 10 ml 08/15/24 06:39 Sodium Chloride 0.9% 10ml Flush Syringe IV 09/14/24 06:38 NEEDED PRN Maintain IV Site Verapamil HCl 2.5 mg 08/15/24 06:45 Verapamil 2.5mg/Ml 2ml Vial IV 08/15/24 06:46 ONCE ONE Discontinued Medications Generic Name Dose Route Start Last Admin Trade Name Freq PRN Reason Stop Dose Admin Heparin Sodium (Porcine) 10,400 unit 08/15/24 06:31 08/15/24 06:37 Heparin Sodium 5,000 Unit/Ml Vial 100 unit/kg (80707 unit) 08/15/24 06:32 10,400 unit IV Administration ONCE ONE Heparin Sodium (Porcine) 10,000 unit 08/15/24 06:31 Heparin Sodium 5,000 Unit/Ml Vial IV 08/15/24 06:32 ONCE ONE Morphine Sulfate 4 mg 08/15/24 06:31 08/15/24 06:36 Morphine 4mg/Ml Syringe IV 08/15/24 06:32 4 mg ONCE ONE Administration Ondansetron HCl 4 mg 08/15/24 06:29 08/15/24 06:36 Ondansetron 4mg/2ml Vial IV 08/15/24 06:30 4 mg ONCE ONE Administration Ticagrelor 180 mg 08/15/24 06:31 08/15/24 06:37 Ticagrelor 90mg Tablet PO 08/15/24 06:32 180 mg ONCE ONE Administration ORDERS Category Date Time Status Cardiology Consult [Consult to Cardiology] [CONS] Cons 08/15/24 06:32 Active Routine XR chest portable Stat Exams 08/15/24 06:39 Taken Complete Blood Count Auto Diff Stat Lab 08/15/24 06:29 Completed Comprehensive Metabolic Panel Stat Lab 08/15/24 06:29 Completed Lipid Panel Stat Lab 08/15/24 06:29 Completed NT Pro Brain Natriuretic Pep. Stat Lab 08/15/24 06:29 Completed Troponin I Q3H Lab 08/15/24 09:45 Ordered Troponin I Q3H Lab 08/15/24 12:45 Ordered Troponin I Stat Lab 08/15/24 06:29 Completed Venous Blood Gas Routine RT 08/15/24 06:32 Completed MDM Narrative Medical Decision Narrative: In summary, this 53 year-old male with comorbidities described in the HPI presents to the emergency department today with back pain between the shoulder blades without radiation, diaphoresis, sensation of shortness of breath, nausea. I was present at bedside when patient arrived in the ER. On initial evaluation patient is hypertensive, no reproducible pain on exam, lungs clear bilaterally, no peripheral edema, GCS 15, no neurologic deficits, abdomen benign. Differential diagnosis includes but is not limited to STEMI, NSTEMI, electrolyte abnormality, dehydration, I considered the possibility of pneumonia, pneumothorax, viral syndrome but have lower suspicion for these given patient's clinical presentation and the findings on ECG presented by EMS. Based on these concerns, I ordered mediate EKG performed at bedside. I personally interpreted this and it demonstrates sinus rhythm, rate 65, normal axis, normal NV and QTc, patient does have obvious findings of inferior STEMI with elevation in leads II, 3, aVF as well as depressions and T wave inversions in leads I and aVL. Dr. Herron with cardiology was immediately paged. Serum labs, chest x-ray have been ordered. Patient is on nasal cannula. I spoke with Dr. Herron with cardiology. He recommends heparin bolus 100 units/kg, IV morphine, and 180 mg Brilinta for management at this time. He also recommended to call and the Client Resolution Specialist team. Client Resolution Specialist is being called. Medications are being administered per his recommendations. Labs personally reviewed demonstrate VBG with normal pH, pCO2 normal, lactic normal at 1.9. Leukocytosis WBC 11.4, no anemia, normal platelets, CMP nonactionable, BNP 22.5, initial troponin pending. Patient does have hyperlipidemia. XR personally interpreted demonstrates bilateral lower lobe changes concerning for developing pulmonary edema. Radiology read pending. Patient was reassessed and states his pain is slightly improved after the morphine. Vitals remained stable. He understands and agrees with the plan for Client Resolution Specialist. Patient was taken to Client Resolution Specialist in stable condition with pending labs at 0702. Initial troponin resulted after patient was already upstairs to Client Resolution Specialist, it was 0.01.
[2024-08-15 06:35] LABS: Lactate Venous 1.9 mmol/L (0.4-2.0); VBG Base Excess -3.4 mmol/L (-2.4-2.3); VBG HCO3 21.4 mmol/L (23-30); VBG Oxygen Saturation 64.4 % (50-70); VBG PCO2 35.3 mmol/L (35-51); VBG PO2 29.3 mmol/L (28-40); VBG Total CO2 22.5 mmol/L (23-27)
[2024-08-15] MEDS: ONDANSETRON 4MG/2ML VIAL 4 MG IV (06:36)
[2024-08-15] MEDS: MORPHINE 4MG/ML SYRINGE 4 MG IV (06:36)
[2024-08-15] MEDS: HEPARIN SODIUM 5,000 UNIT/ML VIAL 10400 UNIT IV (06:37)
[2024-08-15] MEDS: TICAGRELOR 90MG TABLET 180 MG PO (06:37)
--- NOTE | 2024-08-15 06:39 | XR_ITS ---
PROCEDURE INFORMATION: Exam: XR Chest Exam date and time: 08/15/2024 6:39 AM Age: 53 years old Clinical indication: Other: Stemi TECHNIQUE: Imaging protocol: Radiologic exam of the chest. Views: 1 view. COMPARISON: CR XR CHEST PORTABLE 01/17/2024 1:12 PM FINDINGS: Tubes, catheters and devices: None. Lungs: Mild bilateral perihilar and basilar interstitial lung opacities, suggesting pulmonary edema versus infiltrates. The peripheral lungs are otherwise clear. No consolidation. Pleural spaces: No pleural effusion. No pneumothorax. Heart/Mediastinum: Cardiac silhouette appears mildly enlarged. Bones/joints: [place] screw hardware overlies the proximal right humerus, suggesting previous rotator cuff repair. Mild to moderate generalized bony degenerative changes. Soft tissues: This study is limited by patient's body habitus. Other findings: External artifact overlies the area of interest. Limited study. IMPRESSION: 1. Mild enlarged cardiac silhouette. 2. Mild interstitial pulmonary edema versus infiltrates.
[2024-08-15 06:43] LABS: Basophils # 0.1 K/mm3 (0-0.2); Basophils % 0.8 % (0.1-2.0); Eosinophils # 0.4 K/mm3 (0.0-0.4); Eosinophils % 3.2 % (0.1-12.0); Hematocrit 48.7 % (42.0-52.0); Lymphocytes # 3.2 K/mm3 (0.7-4.5); Lymphocytes % 28.5 % (10-50); Mean Corpuscular HGB Conc 34.9 g/dL (31.8-35.4); Mean Corpuscular Hemoglobin 31.8 pg (27.0-31.2); Mean Corpuscular Volume 91.2 fl (80-94); Mean Platelet Volume 11.6 fl (7.4-10.4); Monocytes # 1.1 K/mm3 (0.1-1.0); Monocytes % 9.8 % (1.7-9.3); Neutrophils # 6.5 K/mm3 (1.8-7.8); Neutrophils % 56.6 % (37.0-80.0); Platelet Count 180 K/mm3 (142-424); Red Blood Count 5.34 M/mm3 (4.60-6.20); Red Cell Distribution Width 13.4 % (11.5-17.5); White Blood Count 11.4 K/mm3 (4.8-10.8)
[2024-08-15 06:46] LABS: Albumin Level 4.3 g/dl (3.5-5.0); Chloride 101 mmol/L (98-107); Potassium 3.6 mmoL/L (3.5-5.1); Sodium 134 mmol/L (136-145)
[2024-08-15 06:48] LABS: Alanine Aminotransferase 20 U/L (12-78); Aspartate Amino Transferase 32 U/L (17-59); Blood Urea Nitrogen 10 mg/dl (9-20); Creatinine Clearance Estimated 105 mL/min (50-200); Estimated Glomerular Filt Rate 63 ml/min (>60); GFR (African American) 77 ML/MIN (>60)
[2024-08-15 06:49] LABS: Albumin/Globulin Ratio 1.5 (1.1-1.8); Alkaline Phosphatase 108 U/L (38-126); Anion Gap 10.6 mEq/L (5-15); Bilirubin,Total 0.8 mg/dl (0.2-1.3); Calcium 9.4 mg/dl (8.4-10.2); Carbon Dioxide 26 mmol/L (22.0-30.0); Chol/HDL Ratio 8.1 (1-3.5); Cholesterol 259 mg/dl (140-200); Globulin 2.8 g/dL (1.3-3.2); Glucose 180 mg/dl (74-100); HDL Cholesterol 32 mg/dl (40-60); Total Protein,Serum 7.1 g/dl (6.3-8.2); Triglycerides 152 mg/dl (30-150); VLDL Cholesterol 30 mg/dL (0-40)
--- NOTE | 2024-08-15 06:56 | IR_ITS ---
APPROVED REPORT Patient Location: Emergent Sticker Machine Operator: JOSE DE JESUS [place] RT (R) PROCEDURES Left heart catheterization Left ventriculogram Selective coronary angiogram Mechanical thrombectomy to the proximal dominant right coronary Drug-eluting stent deployment to the ostial proximal and mid dominant right coronary contiguous manner Intravascular ultrasound to the right coronary INDICATION Acute inferior, posterior, lateral, right ventricular ST elevation myocardial infarction, Coronary artery disease Informed consent was obtained prior to the procedure. COMPLICATIONS None Estimated Blood Loss: Less than 10 mls TECHNIQUE One percent lidocaine used to anesthetize the right anterior aspect of the wrist. The right radial artery was accessed via the Seldinger technique. A 6 [place] sheath was placed in the right radial artery. 2.5 mg of Verapamil, 800 mcg of nitroglycerin, 1mg Lidocaine and 5000 U Heparin were given through the arterial sheath. The papa catheter was also used to perform left heart catheterization, left ventriculogram and selective coronary angiogram. The Poppa catheter was placed in the right coronary artery followed by Choice PT extra-support wire placed distally through the occlusion. Mechanical thrombectomy catheter was advanced following a 2 mm x 12 mm compliant balloon being deployed at 15 efrain to restore BRADLEY-3 flow. BRADLEY 0 flow was initially present at the beginning of the procedure thrombus was still identified therefore the mechanical penumbra catheter was added and thrombus was aspirated. Following this a 3.5 x 38 mm Bryan frontier stent was placed in the proximal right coronary artery at 20 efrain. An additional 4 mm x 22 mm Bryan frontier stent was placed proximal to the for stent yet still overlapping extending back toward the ostium and then deployed at 20 efrain. This balloon was advanced and deployed at 20 efrian to mesh the 2 stents and into further post dilate the 3.5 mm stent. An additional 4 mm x 18 mm [place] frontier stent was placed distal to the for stent which was placed and then deployed at 18 efrain. The balloon was brought back and deployed at 20 efrain to mesh the 3.5 and the 4 mm stent together distally. The balloon was brought back and deployed twice more at 20 efrain to further post dilate the entire 3.5 mm stent. Following stenting intravascular ultrasound probe was advanced to verify the ostium was covered and free of disease. Following this a JL 3 guide catheter was used to perform left coronary artery angiography. At the end of the procedure the apparatus was removed the sheath was removed and hemostasis was achieved using TR banding patient was transferred to the postop putting in stable condition ANGIOGRAPHIC RESULTS The left main artery Normal The left anterior descending artery Has proximal and mid vessel 40% stenosis The circumflex artery Is nondominant yet still a large 4 mm caliber vessel and has a proximal to mid vessel 70% stenosis The right coronary artery Large dominant initially thrombosed. Following stenting there was wide patency with inline flow throughout the ostial proximal and mid right coronary artery with distal 20 and 30% stenosis. The PDA and PLV B are large caliber vessels supplying a large amount of myocardium The PEREIRA ventriculogram reveals Preserved at 50% with inferior wall hypokinesis The left ventricular end-diastolic pressure [address] elevation myocardial infarction as described above Successful mechanical thrombectomy to the dominant right coronary followed by drug-eluting stenting of the ostial proximal and mid segment with 3 contiguous drug-eluting stents Persistent severe stenosis in a large caliber circumflex artery Preserved ejection fraction with regional wall motion abnormality Elevated LVEDP PLAN 1. Brilinta and aspirin 2. LDL less than 55 to be achieved with high intensity statin 3. Avoidance of tobacco products 4. Continuous telemetry for 48 hours 5. Patient will be brought back to the Photogrammetrist in 4 to 6 weeks and undergo stenting of the proximal large caliber circumflex artery 6. Official echocardiogram on Saturday 7. Cardiac rehabilitation Electronically signed by : Mauro Herron MD 08/15/2024 07:49:44
--- NOTE | 2024-08-15 06:59 | PC.NURSE ---
pt taken to cathlab at this time
[2024-08-15 07:00] LABS: Direct LDL Cholesterol 199.15 mg/dL (100-129); NT Pro Brain Natriuretic Pep. 22.5 pg/mL (0-125)
[2024-08-15 07:03] LABS: Troponin I 0.01 ng/ml (0.00-0.034)
[2024-08-15] MEDS: VERAPAMIL 2.5MG/ML 2ML VIAL 2.5 MG IV (07:09)
[2024-08-15] MEDS: diphenhydrAMINE 50MG/ML VIAL 50 MG IV (07:09)
[2024-08-15] MEDS: NITROGLYCERIN 800MCG/8ML SYR (CATH LAB) 800 MCG IA (07:09)
[2024-08-15] MEDS: 0.9 % SODIUM CHLORIDE 500 ML 25 ML IV (07:10)
[2024-08-15] MEDS: HEPARIN 1,000 UNITS/500ML NS (CATH LAB) 3000 UNIT IV (07:10)
[2024-08-15] MEDS: HEPARIN 1,000 UNITS/ML 10ML VIAL (CATH LAB) 10000 UNIT IV ×2 (07:33→07:47)
[2024-08-15] MEDS: FENTANYL 100MCG/2ML VIAL 50 MCG IV (07:33)
[2024-08-15] MEDS: MIDAZOLAM HCL 1MG/ML 5ML VIAL 1 MG IV (07:33)
--- NOTE | 2024-08-15 07:52 | EXP.HP ---
History of Present Illness *Admission Date: 08/15/24 *Reason for visit:: Chest pain radiating to back *History of present illness: Mr. Saldivar is a 53-year-old male who was brought to the ER for concern of back pain and diaphoresis. States he woke up from sleep with back pain that was severe and stabbing. Has intermittent back pain issues however because of being diaphoretic, he was concerned something was wrong. Called EMS. EMS reports they found him significantly hypertensive. EKG initially was unclear so he received aspirin and aspirin of nitroglycerin. Repeat EKG showed STEMI in inferior leads. Patient brought to the ER and promptly taken to the Drywall Application Supervisor. Denies any loss of consciousness, nausea, vomiting, shortness of breath. Has had some URI symptoms over the past week. Has been on amoxicillin for bronchitis. On arrival to the floor after his cath, states he is feeling better with resolution of his pain. On telemetry with intermittent arrhythmia (AIVR), asymptomatic. On room air. Alert and oriented x 4. Family at bedside. [facility] Disclaimer: The information contained in this section may have been updated after the patient was seen, as this information can be updated by other users. Medical History URI (upper respiratory infection) Chronic bronchitis Yeast infection PND (post-nasal drip) Wrist fracture Fall Sinusitis Encounter for laboratory testing for COVID-19 virus Contact dermatitis Bronchitis Gout Hypertension Vitamin D deficiency Hyperlipidemia Urinary hesitancy Family History Diabetes Coronary artery disease Heart attack Cancer Hypertension Thyroid disorder Social History (Updated 08/15/24 @ 08:47 by Marci Huertas RN) Smoking Status: Current every day smoker tobacco type: cigarettes packs per day: 1 second hand exposure: No alcohol intake: current alcohol intake frequency: a few times a month substance use type: marijuana current occupational status: employed Travel in the last 8 weeks: None household members: significant other and family housing: house current occupation: self employed current occupational exposures/hazards: No caffeine: Yes Have you lived/traveled outside [place] in past 30 days?: No Contact w/someone who lives/traveled outside [place] past 30 days?: No Exposure to someone with infectious disease in past 14 days?: No Do you have a fever (greater than 100.4 F or 38 C)?: No Have you tested positive for COVID-19: No Exposed to someone with COVID-19 in past 14 days?: No Do you have a sore throat?: No Do you have a cough?: No Do you have any weakness?: No Are you experiencing any nausea/vomitting?: No Do you have any diarrhea?: No Are you experiencing any unusual bleeding?: No Do you have any muscle aches/pain?: No Do you have any abdominal pain?: No Are you experiencing loss of taste or smell?: No Other Medical History Have you received the Flu Vaccine for this season: No Have you received the Pneumonia Vaccine: No Review of Systems Review of Systems Review of systems (narrative): 14 point review of systems performed, pertinent positives and negatives as per [facility] Meds Home Medications and Allergies Home Medications ?Medication ?Instructions ?Recorded ?Confirmed ?Type amoxicillin 875 mg-potassium 1 tab PO Q12H #20 tabs 08/05/24 08/15/24 Rx clavulanate 125 mg tablet benzonatate 100 mg capsule 100 mg PO TIDP PRN Cough #30 caps 08/05/24 08/15/24 Rx methylprednisolone 4 mg tablets in 4 mg PO DIRECTED 6 days #21 tabs 08/05/24 08/15/24 Rx a dose pack aspirin 81 mg chewable tablet 81 mg PO DAILY 08/15/24 08/15/24 History New Prescriptions to Start Prescriptions: Allergies Allergy/AdvReac Type Severity Reaction Status Date / Time [id number] Reductase Allergy Mild Unknown Verified 01/24/24 14:46 Inhibitor allergy reaction Exam Data for Last 24 hours Vital signs and Labs for Last 24 Hours: Temp Pulse Resp BP Pulse Ox O2 Del Method 98.5 F 69 17 159/109 H 99 Room Air 08/15/24 07:02 08/15/24 07:02 08/15/24 07:02 08/15/24 07:02 08/15/24 06:26 08/15/24 07:02 Laboratory Results - last 24 hr 08/15/24 06:29: WBC 11.4 H, RBC 5.34, Hgb 17.0, Hct 48.7, MCV 91.2, MCH 31.8 H, MCHC 34.9, RDW 13.4, Plt Count 180, MPV 11.6 H, Neut % (Auto) 56.6, Lymph % (Auto) 28.5, [place] % (Auto) 9.8 H, Eos % (Auto) 3.2, Baso % (Auto) 0.8, Neut # (Auto) 6.5, Lymph # (Auto) 3.2, [place] # (Auto) 1.1 H, Eos # (Auto) 0.4, Baso # (Auto) 0.1, Sodium 134 L, Potassium 3.6, Chloride 101, Carbon Dioxide 26, Anion Gap 10.6, BUN 10, Creatinine 1.20, Estimated Creat Clear 105, Estimated GFR 63, Est GFR ( Amer) 77, Glucose 180 H, Calcium 9.4, Total Bilirubin 0.8, AST 32, ALT 20, Alkaline Phosphatase 108, Troponin I 0.01, NT-Pro-B Natriuret Pep 22.5, Total Protein 7.1, Albumin 4.3, Globulin 2.8, Albumin/Globulin Ratio 1.5, Triglycerides 152 H, Cholesterol 259 H, LDL Cholesterol Direct 199.15 H, VLDL Cholesterol 30, HDL Cholesterol 32 L, Cholesterol/HDL Ratio 8.1 H 08/15/24 06:32: VBG pH 7.40, VBG pCO2 35.3, VBG pO2 29.3, VBG HCO3 21.4 L, VBG Total CO2 22.5 L, VBG O2 Saturation 64.4, VBG Base Excess -3.4 L, VBG Lactic Acid 1.9 I & O for Last 24 hours: Intake & Output 08/12/24 08/13/24 08/14/24 08/15/24 23:59 23:59 23:59 23:59 Weight 104.326 kg Constitutional Constitutional: no acute distress and cooperative *Routine HEENT Exam Head: Present normocephalic Eye: Present EOMI and PERRL ENT: Present mucous membranes moist *Routine Neck Exam Neck: Present supple; Absent lymphadenopathy *Routine Respiratory Exam Respiratory: Present CTA bilaterally *Routine Cardiovascular Exam Cardiovascular: Present RRR *Routine Abdominal Exam Abdominal: Present soft and normoactive bowel sounds; Absent tenderness *Routine Rectal Exam Rectal:: deferred *Routine Genitalia Exam Genitalia:: deferred *Routine Extremities Exam Extremities: Absent cyanosis, clubbing or edema *Routine Skin Exam Skin: Present warm; Absent rash *Routine Neurological Exam Neurological: Present alert, oriented X3 and moving all extremities; Absent altered mental status Assessment and Plan *Assessment and plan (1) Acute ST elevation myocardial infarction (STEMI) of inferior wall: Status: Acute Category: Medical Code(s): I21.19 - ST elevation (STEMI) myocardial infarction involving other coronary artery of inferior wall (2) Chest pain: Status: Acute Qualifiers: Chest pain type: unspecified Qualified Code(s): R07.9 - Chest pain, unspecified Category: Medical Code(s): R07.9 - Chest pain, unspecified (3) Hyperlipidemia: Status: Chronic Category: Medical Code(s): E78.5 - Hyperlipidemia, unspecified (4) Obesity (BMI 30.0-34.9): Status: Chronic Category: Medical Code(s): E66.811 - Obesity, class 1 (5) URI (upper respiratory infection): Status: Acute Qualifiers: URI type: unspecified URI Qualified Code(s): J06.9 - Acute upper respiratory infection, unspecified Category: Medical Code(s): J06.9 - Acute upper respiratory infection, unspecified Plan 53 male with history of tobacco use disorder who presented with acute onset of chest pain this morning. Pain woke him up from sleep. Radiated to his back. Brought to the ER for evaluation, found to have STEMI. Taken to the Drywall Application Supervisor urgently. Discussed case with ER physician and channel process plant operator, request admission for monitoring for 48 hours after STEMI. Necessitating inpatient care. I agreed to admit for further management. Problems addressed as follows: STEMI Hypertension CAD Hyperlipidemia - Patient found to have thrombosis of dominant right coronary artery. Received 3 contiguous drug-eluting stents. Has persistent stenosis of large caliber circumflex, will need to repeat heart cath in 4 to 6 weeks. - Initiated on Brilinta 90 mg twice daily and aspirin 81 mg daily. Loaded with aspirin and Brilinta on arrival to the ER. - Monitor on telemetry for 48 hours - Noted to have AIVR on telemetry, asymptomatic - Continue metoprolol tartrate 12 and half milligrams twice daily and irbesartan 37.5 mg once daily - History of pain from statins. Will hold on statin at this time. Will need to discuss alternate treatment options with cardiology as an outpatient - Echocardiogram ordered - A1c normal at 5.7, TSH 2.4 - Per my review of EKG, has ST elevations in inferior leads (2 3 and aVF) -Initial troponin less than 0.01. Elevated to 25 -Lipid panel obtained, LDL 199, HDL 32 -Repeat CBC, CMP, magnesium ordered for the morning. Tobacco use disorder: Patient interested in quitting. Initiate nicotine patch 21 mg daily Reports URI symptoms, will obtain mini respiratory panel to evaluate for possible viral etiology Full code Heparinized in Drywall Application Supervisor Cardiac diet
--- NOTE | 2024-08-15 08:12 | PC.NURSE ---
arrived by taler from [employer]
[2024-08-15] MEDS: IOPAMIDOL-370 (76%);100ML BOTTLE 200 ML IV (08:27)
[2024-08-15 08:31] LABS: CATHL Activated Clotting Time 263 SEC (74-125)
[2024-08-15 08:32] LABS: CATHL Activated Clotting Time 283 SEC (74-125)
[2024-08-15 08:34] LABS: Hemoglobin A1C 5.7 % (4.0-6.0)
[2024-08-15] MEDS: IRBESARTAN 75MG TABLET 37.5 MG PO (09:45)
[2024-08-15] MEDS: METOPROLOL TARTRATE 25MG TABLET 25 MG PO ×2 (09:45→20:20)
--- NOTE | 2024-08-15 16:14 | PC.NURSE ---
Pt has had multiple runs of VTACH since arrival to floor from dental laboratory technician apprentice. MD Herron and Edda aware. Pt is asymptomatic. VS are currently stable. No new orders at this time.
[2024-08-15] MEDS: NICOTINE 21MG/24HR PATCH 21 MG TD (18:16)
[2024-08-15] MEDS: TICAGRELOR 90MG TABLET 90 MG PO (20:20)
[2024-08-15] MEDS: diphenhydrAMINE 25MG CAPSULE 25 MG PO (22:55)
[2024-08-15] MEDS: IPRATROPIUM/ALBUTEROL 3 ML NEB IH (23:22)
[2024-08-16] VITALS: BP 100/80; PULSE 72; PULSE 80; RESP 24; TEMP 36.8; O2SAT 93
[2024-08-16 04:00] VITALS: BP 103/68; PULSE 70; PULSE 76; RESP 18; TEMP 36.7; O2SAT 96; BMI 30.4
--- NOTE | 2024-08-16 06:10 | PC.NURSE ---
PT HAS DONE WELL THIS SHIFT. NO C/O CHEST PAIN. PRN MEDS FOR SLEEP GIVEN. VSS.
[2024-08-16 06:54] LABS: Basophils % 0.4 % (0.1-2.0); Eosinophils # 0.3 K/mm3 (0.0-0.4); Eosinophils % 2.6 % (0.1-12.0); Hematocrit 47.8 % (42.0-52.0); Hemoglobin 16.7 g/dL (14.1-18.0); Lymphocytes # 2.3 K/mm3 (0.7-4.5); Lymphocytes % 22.1 % (10-50); Mean Corpuscular HGB Conc 34.9 g/dL (31.8-35.4); Mean Corpuscular Hemoglobin 32.2 pg (27.0-31.2); Mean Corpuscular Volume 92.3 fl (80-94); Mean Platelet Volume 11.5 fl (7.4-10.4); Monocytes # 0.8 K/mm3 (0.1-1.0); Monocytes % 7.8 % (1.7-9.3); Neutrophils # 6.8 K/mm3 (1.8-7.8); Neutrophils % 66.4 % (37.0-80.0); Platelet Count 167 K/mm3 (142-424); Red Blood Count 5.18 M/mm3 (4.60-6.20); White Blood Count 10.2 K/mm3 (4.8-10.8)
[2024-08-16 07:02] LABS: Chloride 106 mmol/L (98-107)
[2024-08-16 07:03] LABS: Potassium 3.8 mmoL/L (3.5-5.1); Sodium 134 mmol/L (136-145)
[2024-08-16 07:05] LABS: Alanine Aminotransferase 36 U/L (12-78); Albumin/Globulin Ratio 1.4 (1.1-1.8); Alkaline Phosphatase 80 U/L (38-126); Anion Gap 8.8 mEq/L (5-15); Aspartate Amino Transferase 119 U/L (17-59); Bilirubin,Total 0.8 mg/dl (0.2-1.3); Blood Urea Nitrogen 11 mg/dl (9-20); Carbon Dioxide 23 mmol/L (22.0-30.0); Cholesterol 253 mg/dl (140-200); Creatinine Clearance Estimated 115 mL/min (50-200); Estimated Glomerular Filt Rate 70 ml/min (>60); GFR (African American) 85 ML/MIN (>60); Globulin 2.8 g/dL (1.3-3.2); Total Protein,Serum 6.8 g/dl (6.3-8.2); Triglycerides 171 mg/dl (30-150); VLDL Cholesterol 34 mg/dL (0-40)
[2024-08-16 07:06] LABS: Calcium 9.5 mg/dl (8.4-10.2); Chol/HDL Ratio 9.4 (1-3.5); Glucose 170 mg/dl (74-100); HDL Cholesterol 27 mg/dl (40-60); Magnesium 2.1 mg/dl (1.6-2.3)
[2024-08-16 07:17] LABS: Direct LDL Cholesterol 187.03 mg/dL (100-129)
[2024-08-16 08:00] VITALS: BP 111/75; PULSE 70; PULSE 75; RESP 16; TEMP 36.9; O2SAT 93
[2024-08-16] MEDS: METOPROLOL TARTRATE 25MG TABLET 25 MG PO ×2 (08:27→21:11)
[2024-08-16] MEDS: IRBESARTAN 75MG TABLET 37.5 MG PO (08:27)
[2024-08-16] MEDS: TICAGRELOR 90MG TABLET 90 MG PO ×2 (08:27→21:10)
[2024-08-16] MEDS: ASPIRIN EC 81MG TABLET 81 MG PO (08:27)
--- NOTE | 2024-08-16 10:01 | P.PN_ITS ---
Subjective *Date: 08/16/24 *Time: 10:01 Interval history: Did well overnight. Continue to have runs of AIVR. No chest pain. Asymptomatic. Stable on room air. Tolerating p.o. intake. Medical Exam Vital signs and Labs for Last 24 Hours: Vital Signs Temp Pulse Pulse Resp BP Pulse Ox O2 Del Method 08/16/24 09:00 Room Air 08/16/24 08:00 Room Air 08/16/24 08:00 98.5 F 75 16 111/75 93 L 08/16/24 06:44 Room Air 08/16/24 05:00 Room Air 08/16/24 04:00 70 08/16/24 04:00 98.1 F 76 18 103/68 L 96 Room Air 08/16/24 03:00 Room Air 08/16/24 01:00 Room Air 08/16/24 00:00 98.2 F 72 24 100/80 L 93 L Room Air 08/16/24 00:00 80 08/15/24 23:30 74 08/15/24 23:30 76 08/15/24 22:58 Room Air 08/15/24 21:00 Room Air 08/15/24 20:00 80 08/15/24 20:00 98.4 F 79 22 138/90 96 Room Air 08/15/24 20:00 Room Air 08/15/24 18:33 Room Air 08/15/24 17:00 Room Air 08/15/24 16:00 70 08/15/24 16:00 98.1 F 86 16 136/78 96 Room Air 08/15/24 15:05 72 19 114/63 94 L Room Air 08/15/24 15:00 Room Air 08/15/24 14:05 74 20 98/64 L 95 Room Air 08/15/24 13:05 72 18 133/81 93 L Room Air 08/15/24 13:00 Room Air 08/15/24 12:05 73 16 129/95 H 95 Room Air 08/15/24 12:02 90 08/15/24 11:05 74 18 136/98 H 96 Room Air 08/15/24 11:00 Room Air 08/15/24 10:35 69 18 125/74 94 L Room Air 08/15/24 10:05 78 17 152/85 H 93 L Room Air Intake and Output 08/15/24 08/16/24 08/16/24 23:59 07:59 15:59 Intake Total 360 / 820 100 / 460 360 / 460 Output Total 0 / 0 0 / 0 Balance 360 / 820 100 / 460 360 / 460 Intake: Intake, Oral Amount 360 / 820 100 / 460 360 / 460 Output: Output, Urine Amount 0 / 0 0 / 0 Other: Number of Unmeasured Voids 1 2 Number of Bowel Movements 1 Weight 104.326 kg Patient Weight 08/16/24 23:59 Weight 104.326 kg Laboratory Results - last 24 hr 08/15/24 10:58: Troponin I 25.40 H 08/15/24 14:00: Troponin I 37.10 H 08/16/24 06:43: WBC 10.2, RBC 5.18, Hgb 16.7, Hct 47.8, MCV 92.3, MCH 32.2 H, MCHC 34.9, RDW 14.0, Plt Count 167, MPV 11.5 H, Neut % (Auto) 66.4, Lymph % (Auto) 22.1, [place] % (Auto) 7.8, Eos % (Auto) 2.6, Baso % (Auto) 0.4, Neut # (Auto) 6.8, Lymph # (Auto) 2.3, [place] # (Auto) 0.8, Eos # (Auto) 0.3, Baso # (Auto) 0.0, Sodium 134 L, Potassium 3.8, Chloride 106, Carbon Dioxide 23, Anion Gap 8.8, BUN 11, Creatinine 1.10, Estimated Creat Clear 115, Estimated GFR 70, Est GFR ( Amer) 85, Glucose 170 H, Calcium 9.5, Magnesium 2.1, Total Bilirubin 0.8, AST 119 H D, ALT 36 D, Alkaline Phosphatase 80, Total Protein 6.8, Albumin 4.0, Globulin 2.8, Albumin/Globulin Ratio 1.4, Triglycerides 171 H, Cholesterol 253 H, LDL Cholesterol Direct 187.03 H, VLDL Cholesterol 34, HDL Cholesterol 27 L, Cholesterol/HDL Ratio 9.4 H I & O for Labs for Last 24 Hours: Intake & Output 08/13/24 08/14/24 08/15/24 08/16/24 23:59 23:59 23:59 23:59 Intake Total 720 / 820 460 / 460 Output Total 0 / 0 0 / 0 Balance 720 / 820 460 / 460 Weight 104.326 kg 104.326 kg Constitutional: Present no acute distress and cooperative Head: Present atraumatic and normocephalic ENT: Present normal exam Respiratory: Present normal respiratory effort Cardiac: Present Reg Rate and Rhythm GI: Present soft and normal bowel sounds; Absent distention or tenderness Extremities: Present normal inspection and full ROM Skin: Present intact; Absent erythema Neuro: Present Grossly Intact, alert, awake, oriented x 3 and moves all extremities Assessment and Plan *Assessment and plan (1) Acute ST elevation myocardial infarction (STEMI) of inferior wall: Status: Acute Category: Medical Code(s): I21.19 - ST elevation (STEMI) myocardial infarction involving other coronary artery of inferior wall (2) Chest pain: Status: Acute Qualifiers: Chest pain type: unspecified Qualified Code(s): R07.9 - Chest pain, unspecified Category: Medical Code(s): R07.9 - Chest pain, unspecified (3) Hyperlipidemia: Status: Chronic Category: Medical Code(s): E78.5 - Hyperlipidemia, unspecified (4) Obesity (BMI 30.0-34.9): Status: Chronic Category: Medical Code(s): E66.811 - Obesity, class 1 (5) URI (upper respiratory infection): Status: Acute Qualifiers: URI type: unspecified URI Qualified Code(s): J06.9 - Acute upper respiratory infection, unspecified Category: Medical Code(s): J06.9 - Acute upper respiratory infection, unspecified Plan 53 male with history of tobacco use disorder who presented with acute onset of chest pain this morning. Pain woke him up from sleep. Radiated to his back. Brought to the ER for evaluation, found to have STEMI. Taken to the Acquisition Advisor urgently. Discussed case with ER physician and natural fabricator, request admission for monitoring for 48 hours after STEMI. Necessitating inpatient care. I agreed to admit for further management. Doing well overnight. Asymptomatic. Continues to require monitoring. Problems addressed as follows: STEMI Hypertension CAD Hyperlipidemia -Left heart cath performed 08/15/2024, patient found to have thrombosis of dominant right coronary artery. Received 3 contiguous drug-eluting stents. Has persistent stenosis of large caliber circumflex, will need to repeat heart cath in 4 to 6 weeks. -Continue Brilinta 90 mg twice daily and aspirin 81 mg daily - Monitor on telemetry for 48 hours; echocardiogram ordered for the morning. - Noted to have AIVR on telemetry, asymptomatic - Continue metoprolol tartrate increased to 25 mg twice daily and irbesartan 37.5 mg once daily - History of pain from statins. Will hold on statin at this time. Will need to discuss alternate treatment options with cardiology as an outpatient -Initial troponin less than 0.01. Elevated to 37 -Lipid panel obtained, LDL 199, HDL 32 -Repeat CBC, CMP, magnesium ordered for the morning. Tobacco use disorder: Patient interested in quitting. Initiate nicotine patch 21 mg daily Reports URI symptoms, will obtain mini respiratory panel to evaluate for possible viral etiology Full code Heparinized in Acquisition Advisor Cardiac diet
[2024-08-16 12:00] VITALS: BP 113/68; PULSE 68; PULSE 80; RESP 16; TEMP 36.7; O2SAT 96
[2024-08-16 16:00] VITALS: BP 98/58; PULSE 60; PULSE 80; RESP 16; TEMP 36.6; O2SAT 96
--- NOTE | 2024-08-16 19:54 | EXP.EVENT.NO ---
Patient complains of a chronic cough related to bronchitis., This was one of the things that was going on when he started his back pain thought it was from the coughing and then found out he had an PA. Patient has asked for something to help him with this cough, he does have a dose of Benadryl at night to help him sleep that may help with some of the coughing Plan will add Robitussin DM on a as needed basis add Tessalon Perles 3 times daily on a regular basis
[2024-08-16 20:00] VITALS: BP 106/57; PULSE 70; PULSE 76; RESP 18; TEMP 36.7; O2SAT 97
[2024-08-16] MEDS: BENZONATATE 100MG CAPSULE 200 MG PO (21:11)
[2024-08-17] VITALS: BP 102/53; PULSE 85; RESP 16; TEMP 37; O2SAT 95
[2024-08-17 04:00] VITALS: BP 106/62; PULSE 76; RESP 16; TEMP 36.8; O2SAT 94; BMI 30.9
--- NOTE | 2024-08-17 06:00 | CA_ITS ---
APPROVED REPORT EXAM: Comprehensive 2D, Doppler, and color-flow Echocardiogram [employer]: Thea Pinedo CRT Ht: 6 ft 1 in Wt: 230lbs BSA: 2.28 BP: 159/109 mmHg Indications: STEMI, Hypertension/HDD, stents 08/15/24, ef 50% on cath 08/15/24 2D Dimensions LA Volume 36.40 mL LA Volume Index 15.60 mL/m2 (M/F) 16-34 M-Mode Dimensions RVDd 2.37 cm (0.9-2.6) LA Diam 3.61 cm (1.9-4.0) LVDd 5.46 cm (3.5-5.7) LVDs 3.61 cm (3.5-5.7) IVSd 1.45 cm (0.6-1.1) PWd 0.88 cm (0.6-1.1) EF (Teich) 62.20% FS 33.90% EDV (Teich) 145.00 mL TAPSE 1.12 (<1.7) ESV (Teich) 54.80 mL LV Diastology E Decel Time 243 (160-240 msec) E/A Ratio 0.79 MED A' 9.10 cm/s LAT A' 11.80 cm/s Aortic Valve AO Peak GR. 7.70 mmHg Mitral Valve MV E Max Feroz. 55.0 (40-130 cm/s) MV A Velocity 69.0 (40-130 cm/s) E/A Ratio 0.79 MV PHT 71.0 ms Pulmonary Valve PV Peak Velocity 90.0 (50-150 cm/s) Tricuspid Valve TR P. Velocity 234.00 cm/s RAP Estimate 10.00 mmHg RVSP 31.90 mmHg Left Ventricle The left ventricle is normal size. The left ventricular systolic function is low-normal. There is increased LV wall thickness. There is mild inferoseptal hypokinesis. The left ventricular diastolic function is normal. LVEF is 50%. Right Ventricle The right ventricle is normal size. The right ventricular systolic function is normal. Atria The left atrium size is normal. The right atrium size is normal. There is indeterminate evidence of color Doppler for interatrial shunt. Aortic Valve The aortic valve is mildly thickened. There is no aortic valvular stenosis. Trace aortic regurgitation. Mitral Valve The mitral valve is normal in structure. No evidence of mitral valve stenosis. Mild mitral regurgitation. Tricuspid Valve Tricuspid valve is grossly normal in structure and function. Trace tricuspid regurgitation. There is insufficient TR jet to estimate RVSP. Pulmonic Valve The pulmonary valve is normal in structure. Trace pulmonic regurgitation. Great Vessels The aortic root is normal in size. IVC is normal in size and collapses >50% with inspiration. Pericardium There is no pericardial effusion. Other Information Study Quality: Fair Conclusion Low-normal LV systolic function (LVEF 50%). Mild hypokinesis of the inferoseptal LV wall. Mild MR. Electronically signed by : Alessandra Sparks MD 08/17/2024 10:21:31
[2024-08-17 07:47] LABS: Albumin Level 4.1 g/dl (3.5-5.0); Chloride 106 mmol/L (98-107); Sodium 139 mmol/L (136-145)
[2024-08-17 07:50] LABS: Alanine Aminotransferase 30 U/L (12-78); Albumin/Globulin Ratio 1.4 (1.1-1.8); Alkaline Phosphatase 85 U/L (38-126); Aspartate Amino Transferase 68 U/L (17-59); Bilirubin,Total 0.9 mg/dl (0.2-1.3); Blood Urea Nitrogen 15 mg/dl (9-20); Calcium 9.4 mg/dl (8.4-10.2); Carbon Dioxide 21 mmol/L (22.0-30.0); Creatinine Clearance Estimated 107 mL/min (50-200); Estimated Glomerular Filt Rate 63 ml/min (>60); GFR (African American) 77 ML/MIN (>60); Glucose 134 mg/dl (74-100); Magnesium 2.1 mg/dl (1.6-2.3); Total Protein,Serum 7.1 g/dl (6.3-8.2)
--- NOTE | 2024-08-17 07:52 | EXP.DC.SUM ---
General Admission date:: 08/15/24 Discharge date: 08/17/24 HPI HPI HPI: Mr. Saldivar is a 53-year-old male who was brought to the ER for concern of back pain and diaphoresis. States he woke up from sleep with back pain that was severe and stabbing. Has intermittent back pain issues however because of being diaphoretic, he was concerned something was wrong. Called EMS. EMS reports they found him significantly hypertensive. EKG initially was unclear so he received aspirin and aspirin of nitroglycerin. Repeat EKG showed STEMI in inferior leads. Patient brought to the ER and promptly taken to the [employer] Director. Denies any loss of consciousness, nausea, vomiting, shortness of breath. Has had some URI symptoms over the past week. Has been on amoxicillin for bronchitis. On arrival to the floor after his cath, states he is feeling better with resolution of his pain. On telemetry with intermittent arrhythmia (AIVR), asymptomatic. On room air. Alert and oriented x 4. Family at bedside. Hospital Course Hospital Course Hospital Course: 53 male with history of tobacco use disorder who presented with acute onset of chest pain this morning. Pain woke him up from sleep. Radiated to his back. Brought to the ER for evaluation, found to have STEMI. Taken to the [employer] Director urgently. Discussed case with ER physician and youtuber, request admission for monitoring for 48 hours after STEMI. Did well during admission. Had runs of AIVR but no other arrhythmia. Patient asymptomatic. Echo showing preserved ejection fraction. Stable discharge home with further management as an outpatient. Problems addressed as follows: STEMI Hypertension CAD Hyperlipidemia -Left heart cath performed 08/15/2024, patient found to have thrombosis of dominant right coronary artery. Received 3 contiguous drug-eluting stents. Has persistent stenosis of large caliber circumflex, will need to repeat heart cath in 4 to 6 weeks. Treated with Brilinta 90 mg twice daily and aspirin 81 mg daily. Monitor on telemetry for 48 hours. Noted to have episodes of AIVR on telemetry but remained asymptomatic. Initiated on metoprolol and irbesartan for goal-directed therapy after his UT. Tolerating metoprolol tartrate 25 mg twice daily and irbesartan 37.5 mg daily with good control of blood pressure. Has a history of pain and myalgia from statins. Hold on statin at this time. Will need consideration as an outpatient for Repatha. Initial troponin less than 0.01, elevated to 37 during admission. Patient is chest pain-free. Lipid panel obtained with LDL of 199 and HDL of 32. Stable discharge home with further management as an outpatient. -Echocardiogram obtained showing preserved ejection fraction Tobacco use disorder: Patient interested in quitting. Initiate nicotine patch 21 mg daily. Prescribed at discharge Exam Data for Last 24 hours Vital signs and Labs for Last 24 Hours: Temp Pulse Resp BP Pulse Ox O2 Del Method 98.3 F 76 16 106/62 L 94 L Room Air 08/17/24 04:00 08/17/24 04:00 08/17/24 04:00 08/17/24 04:00 08/17/24 04:00 08/17/24 06:55 I & O for Last 24 hours: Intake & Output 08/14/24 08/15/24 08/16/24 08/17/24 23:59 23:59 23:59 23:59 Intake Total 720 / 820 1420 / 1420 Output Total 0 / 0 0 / 0 0 / 0 Balance 720 / 820 1420 / 1420 0 / 0 Weight 104.326 kg 104.326 kg 105.868 kg Constitutional Constitutional: no acute distress and cooperative *Routine HEENT Exam Head: Present normocephalic Eye: Present EOMI and PERRL ENT: Present mucous membranes moist *Routine Neck Exam Neck: Present supple; Absent lymphadenopathy *Routine Respiratory Exam Respiratory: Present CTA bilaterally *Routine Cardiovascular Exam Cardiovascular: Present RRR *Routine Abdominal Exam Abdominal: Present soft and normoactive bowel sounds; Absent tenderness *Routine Rectal Exam Patient deferred: visual exam *Routine Exam Patient deferred: penile exam *Routine Extremities Exam Extremities: Absent cyanosis, clubbing or edema *Routine Skin Exam Skin: Present warm; Absent rash *Routine Neurological Exam Neurological: Present alert, oriented X3 and moving all extremities; Absent altered mental status DS: Diagnosis Discharge Diagnosis (1) Acute ST elevation myocardial infarction (STEMI) of inferior wall: Status: Acute Code(s): I21.19 - ST elevation (STEMI) myocardial infarction involving other coronary artery of inferior wall (2) Chest pain: Status: Acute Code(s): R07.9 - Chest pain, unspecified Qualifiers: Chest pain type: unspecified Qualified Code(s): R07.9 - Chest pain, unspecified (3) Hyperlipidemia: Status: Chronic Code(s): E78.5 - Hyperlipidemia, unspecified (4) Obesity (BMI 30.0-34.9): Status: Chronic Code(s): E66.811 - Obesity, class 1 (5) URI (upper respiratory infection): Status: Resolved Code(s): J06.9 - Acute upper respiratory infection, unspecified Qualifiers: URI type: unspecified URI Qualified Code(s): J06.9 - Acute upper respiratory infection, unspecified Meds Home Medications and Allergies Home Medications ?Medication ?Instructions ?Recorded ?Confirmed ?Type aspirin 81 mg tablet,delayed 81 mg PO DAILY 30 days #30 tabs 08/16/24 Rx release nicotine 21 mg/24 hr daily 21 mg transdermal DAILYP PRN 08/16/24 Rx transdermal patch Nicotine Cravings #28 ea ticagrelor 90 mg tablet (Brilinta) 90 mg PO BID 30 days #60 tabs 08/16/24 Rx irbesartan 75 mg tablet 37.5 mg (1/2 x 75 mg) PO DAILY 30 08/17/24 Rx days #15 tabs metoprolol tartrate 25 mg tablet 25 mg PO BID 30 days #60 tabs 08/17/24 Rx New Prescriptions to Start Prescriptions: denia Bañuelos,Adams irbesartan Edda,Adams metoprolol tartrate Adams Bañuelos nicotine Edda,Adams ticagrelor [Brilinta] Adams Bañuelos Allergies Allergy/AdvReac Type Severity Reaction Status Date / Time Rfsavcp-XMG-ScR Reductase Allergy Mild Unknown Verified 01/24/24 14:46 Inhibitor allergy reaction Discharge Plan Disposition Patient Disposition: Home, Self-Care Condition: Good Discharge Order Discharge Orders: Discharge Order (Routine); Ordered 08/17/24 Ordered By: Adams Bañuelos Follow up Plan Follow up with: aMuro Herron MD [Staff Physician] - 08/25/24 11:00 am Gordon Bonds MD [Staff Physician] - 08/25/24 10:00 am Prescriptions/Medication Reconciliation: New aspirin 81 mg Tablet,Delayed Release (Dr/Ec) 81 mg PO DAILY 30 Days Qty: 30 0RF nicotine 21 mg/24 hr Patch 24 Hour 21 mg transdermal DAILYP PRN (Reason: Nicotine Cravings) Qty: 28 1RF Brilinta 90 mg Tablet 90 mg PO BID 30 Days Qty: 60 0RF irbesartan 75 mg Tablet 37.5 mg PO DAILY 30 Days Qty: 15 0RF metoprolol tartrate 25 mg Tablet 25 mg PO BID 30 Days Qty: 60 0RF Discontinued aspirin 81 mg Tablet,Chewable 81 mg PO DAILY benzonatate 100 mg capsule 100 mg PO TIDP PRN (Reason: Cough) Qty: 30 0RF methylprednisolone 4 mg Tablets,Dose Pack 4 mg PO DIRECTED 6 Days Qty: 21 0RF Rx Instructions: Take 1 pack as directed for 6 days amoxicillin-pot clavulanate 875-125 mg Tablet 1 tab PO Q12H Qty: 20 0RF Other Ambulatory Orders: Basic Metabolic Panel (Routine) Timeframe: 20240825 Facility: [facility] - Location: Laboratory Ordered By: Mauro Herron Complete Blood Count Man Dif (Routine) Timeframe: 20240825 Facility: [facility] - Location: Laboratory Ordered By: Mauro Herron Problem Reconciliation Problems Reviewed?: Yes Patient Discharge Instructions ACTIVITY: Continue current activity DIET: continue same diet and low fat, low cholesterol Stand Alone Forms: [facility] Work Release Patient Instructions: DI for Heart Attack, Heart-Healthy Diet, DI for Cardiac Catheterization, DI for Surgical Site Infection Print Language: [place] Providers Primary Care Provider: Provider,Referral Admit Provider: Mauro Herron Attending Provider: Adams Bañuelos
[2024-08-17 08:00] VITALS: BP 105/65; PULSE 70; PULSE 77; RESP 18; TEMP 36.9; O2SAT 95
[2024-08-17 08:31] LABS: Basophils # 0.1 K/mm3 (0-0.2); Basophils % 1.1 % (0.1-2.0); Eosinophils # 0.3 K/mm3 (0.0-0.4); Eosinophils % 2.7 % (0.1-12.0); Hematocrit 48.6 % (42.0-52.0); Lymphocytes # 2.7 K/mm3 (0.7-4.5); Lymphocytes % 23.7 % (10-50); Mean Corpuscular Hemoglobin 32.1 pg (27.0-31.2); Mean Corpuscular Volume 91.9 fl (80-94); Mean Platelet Volume 11.6 fl (7.4-10.4); Monocytes % 8.4 % (1.7-9.3); Neutrophils # 7.2 K/mm3 (1.8-7.8); Neutrophils % 63.3 % (37.0-80.0); Platelet Count 180 K/mm3 (142-424); Red Blood Count 5.29 M/mm3 (4.60-6.20); Red Cell Distribution Width 13.8 % (11.5-17.5); White Blood Count 11.3 K/mm3 (4.8-10.8)
--- NOTE | 2024-08-17 09:04 | HMH.PHAINT1 ---
Pharmacy Intervention Comments: Counselled patient on new medications as well as discontinued medications. Patient verbalized understanding.
[2024-08-17] MEDS: METOPROLOL TARTRATE 25MG TABLET 25 MG PO (09:38)
[2024-08-17] MEDS: IRBESARTAN 75MG TABLET 37.5 MG PO (09:38)
[2024-08-17] MEDS: ASPIRIN EC 81MG TABLET 81 MG PO (09:38)
[2024-08-17] MEDS: TICAGRELOR 90MG TABLET 90 MG PO (10:16)
--- NOTE | 2024-08-17 10:23 | P.CONCA_ITS ---
History of Present Illness History of Present Illness Consult date: 08/17/24 Requesting physician: Adams Bañuelos Consult reason: chest pain Chief complaint: chest pain, STEMI Additional Medical History:: 1. Tobacco use 2. Hypertension 3. History of prediabetes, resolved with 70 pound weight loss 4. CAD with STEMI, 08/15/2024 -HELDER to bifurcating LAD diagonal lesions with plans to stent circumflex lesions in 4 to 6 weeks 5. History of degenerative disc disease with lumbar radiculopathy 6. Hyperlipidemia with intolerant of statins History of present illness: Mr. Saldivar is a 53-year-old male who was brought to the ER for concern of back pain and diaphoresis. States he woke up from sleep with back pain that was severe and stabbing. Has intermittent back pain issues however because of being diaphoretic, he was concerned something was wrong. Called EMS. EMS reports they found him significantly hypertensive. EKG initially was unclear so he received aspirin and aspirin of nitroglycerin. Repeat EKG showed STEMI in inferior leads. Patient brought to the ER and promptly taken to the [employer] T[facility]. Denies any loss of consciousness, nausea, vomiting, shortness of breath. Has had some URI symptoms over the past week. Has been on amoxicillin for bronchitis. On arrival to the floor after his cath, states he is feeling better with resolution of his pain. On telemetry with intermittent arrhythmia (AIVR), asymptomatic. On room air. Alert and oriented x 4. Family at bedside. The above per Dr. Bañuelos Patient is doing well this morning with plans for discharge. His chest and back discomfort have resolved with stenting. He does relate being locked up anytime he attempted to take statin therapy in the past. He is amenable to proceeding with Repatha. [facility] Disclaimer: The information contained in this section may have been updated after the patient was seen, as this information can be updated by other users. Medical History (Updated 08/17/24 @ 10:29 by RAMY Trujillo) URI (upper respiratory infection) Chronic bronchitis Yeast infection PND (post-nasal drip) Wrist fracture Fall Sinusitis Encounter for laboratory testing for COVID-19 virus Contact dermatitis Bronchitis Gout Hypertension Vitamin D deficiency Hyperlipidemia Urinary hesitancy Family History Diabetes Coronary artery disease Heart attack Cancer Hypertension Thyroid disorder Social History (Updated 08/15/24 @ 08:47 by Marci Huertas RN) Smoking Status: Current every day smoker tobacco type: cigarettes packs per day: 1 second hand exposure: No alcohol intake: current alcohol intake frequency: a few times a month substance use type: marijuana current occupational status: employed Travel in the last 8 weeks: None household members: significant other and family housing: house current occupation: self employed current occupational exposures/hazards: No caffeine: Yes Review of Systems Review of Systems Review of systems:: pertinent systems reviewed and negative unless documented below *Cardiovascular Cardiovascular: Reports chest pain and Reports dyspnea on exertion *Respiratory Respiratory: Reports dyspnea on exertion *Musculoskeletal Musculoskeletal: Reports back pain Exam Data for Last 24 hours Vital signs and Labs for Last 24 Hours: Temp Pulse Resp BP Pulse Ox O2 Del Method 98.5 F 77 18 105/65 L 95 Room Air 08/17/24 08:00 08/17/24 08:00 08/17/24 08:00 08/17/24 08:00 08/17/24 08:00 08/17/24 09:00 Laboratory Results - last 24 hr 08/17/24 06:27: WBC 11.3 H, RBC 5.29, Hgb 17.0, Hct 48.6, MCV 91.9, MCH 32.1 H, MCHC 35.0, RDW 13.8, Plt Count 180, MPV 11.6 H, Neut % (Auto) 63.3, Lymph % (Auto) 23.7, [place] % (Auto) 8.4, Eos % (Auto) 2.7, Baso % (Auto) 1.1, Neut # (Auto) 7.2, Lymph # (Auto) 2.7, [place] # (Auto) 1.0, Eos # (Auto) 0.3, Baso # (Auto) 0.1, Sodium 139, Potassium 4.0, Chloride 106, Carbon Dioxide 21 L, Anion Gap 16.0 H, BUN 15 D, Creatinine 1.20, Estimated Creat Clear 107, Estimated GFR 63, Est GFR ( Amer) 77, Glucose 134 H D, Calcium 9.4, Magnesium 2.1, Total Bilirubin 0.9, AST 68 H D, ALT 30, Alkaline Phosphatase 85, Total Protein 7.1, Albumin 4.1, Globulin 3.0, Albumin/Globulin Ratio 1.4 I & O for Last 24 hours: Intake & Output 08/14/24 08/15/24 08/16/24 08/17/24 11:59 11:59 11:59 11:59 Intake Total 1180 / 1180 1200 / 1200 Output Total 0 / 0 0 / 0 Balance 1180 / 1180 1200 / 1200 Weight 230 lb 229 lb 15.991 oz 233 lb 6.4 oz Constitutional Constitutional: no acute distress *Routine Respiratory Exam Respiratory: Present rhonchi and wheezes *Routine Cardiovascular Exam Cardiovascular: Present RRR; Absent murmur, gallop or rubs *Routine Extremities Exam Extremities: Absent edema *Routine Neurological Exam Neurological: Present alert, oriented X3 and CN II-XII intact Meds Home Medications and Allergies Home Medications ?Medication ?Instructions ?Recorded ?Confirmed ?Type aspirin 81 mg tablet,delayed 81 mg PO DAILY 30 days #30 tabs 08/16/24 Rx release nicotine 21 mg/24 hr daily 21 mg transdermal DAILYP PRN 08/16/24 Rx transdermal patch Nicotine Cravings #28 ea ticagrelor 90 mg tablet (Brilinta) 90 mg PO BID 30 days #60 tabs 08/16/24 Rx irbesartan 75 mg tablet 37.5 mg (1/2 x 75 mg) PO DAILY 30 08/17/24 Rx days #15 tabs metoprolol tartrate 25 mg tablet 25 mg PO BID 30 days #60 tabs 08/17/24 Rx New Prescriptions to Start Prescriptions: Adams Villatoro irbesartan Adams Bañuelos metoprolol tartrate Adams Bañuelos nicotine Edda,Adams ticagrelor [Brilinta] Adams Bañuelos Allergies Allergy/AdvReac Type Severity Reaction Status Date / Time Xoldeea-GMX-VnO Reductase Allergy Mild Unknown Verified 01/24/24 14:46 Inhibitor allergy reaction Assessment and Plan *Assessment and plan (1) Acute ST elevation myocardial infarction (STEMI) of inferior wall: Status: Acute Category: Medical Code(s): I21.19 - ST elevation (STEMI) myocardial infarction involving other coronary artery of inferior wall (2) URI (upper respiratory infection): Status: Acute Qualifiers: URI type: unspecified URI Qualified Code(s): J06.9 - Acute upper respiratory infection, unspecified Category: Medical Code(s): J06.9 - Acute upper respiratory infection, unspecified (3) Degenerative disc disease: Status: Acute Qualifiers: Spinal region: lumbar Disc-related pain type: discogenic back pain and lower extremity pain Qualified Code(s): M51.362 - Other intervertebral disc degeneration, lumbar region with discogenic back pain and lower extremity pain Category: Medical (4) Lumbar radiculopathy: Status: Acute Category: Medical Code(s): M54.16 - Radiculopathy, lumbar region (5) Hyperlipidemia: Status: Chronic Qualifiers: Hyperlipidemia type: mixed hyperlipidemia Qualified Code(s): E78.2 - Mixed hyperlipidemia Category: Medical Code(s): E78.5 - Hyperlipidemia, unspecified (6) Hypertension: Status: Acute Qualifiers: Hypertension type: primary hypertension Qualified Code(s): I10 - Essential (primary) hypertension Category: Medical Code(s): I10 - Essential (primary) hypertension Plan 1. STEMI with HELDER to RCA -ASA, Brilinta -plan for HELDER to Cx in 4-6 wks -On irbesartan and metoprolol -hold on SGLT2 inhibitor and aldactone for now. 2. Hypertension -Continue irbesartan and metoprolol 3. Hyperlipidemia -Intolerant to statins -Start Repatha as outpatient 4. Tobacco use -Discontinuation recommended -Patches ordered 5. History of Asthma/chronic bronchitis -defer to Dr. Bañuelos 6. History of diabetes, improved with 70 pound weight loss Stable for discharge from cardiology standpoint. Home meds: Aspirin 81 mg daily Brilinta 90 mg twice daily Irbesartan 37.5 mg daily Metoprolol tartrate 25 mg twice daily Anora inhaler as directed Follow up in office in one week.
[2024-08-17] MEDS: UMECLIDINIUM/VILANTEROL 62.5/25MCG INHALER 1 PUFF IH (10:45)
--- NOTE | 2024-08-18 10:39 | SW/DCPLANNER ---
Spoke with patient on the phone. Patient stated that he is doing well. 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 Patient stated that he has no concerns or questions at this time. Ruma Ham
== END 2024-08-17 11:20 | disposition home or self-care (01) | DRG 322 ==
LOC: ER 07:01 → CATHLAB 07:04 → 2ND 07:49
PROVIDERS: Admitting Provider Internal Medicine; Emergency Provider Emergency Medicine; Visit Provider Internal Medicine Adolescent Medicine
PROC: 027036Z Dilation of Coronary Artery, One Artery with Three Drug-eluting Intraluminal Devices, Percutaneous Approach (ICD-10-PCS; principal; 2024-08-15 06:45)
DX: I21.19 ST elevation (STEMI) myocardial infarction involving other coronary artery of inferior wall (principal); I10 Essential (primary) hypertension; I25.10 Atherosclerotic heart disease of native coronary artery without angina pectoris; E55.9 Vitamin D deficiency, unspecified; F17.210 Nicotine dependence, cigarettes, uncomplicated; M54.16 Radiculopathy, lumbar region; M51.362 Other intervertebral disc degeneration, lumbar region with discogenic back pain and lower extremity pain; J06.9 Acute upper respiratory infection, unspecified; E78.5 Hyperlipidemia, unspecified
CPT/HCPCS: 36415; 71045; 80053; 80061; 82803; 83036; 83735; 83880; 84443; 84484; 85025; 85347; 92928; 92973; 92978; 93005; 93306; 93458; 94640; 99152; 99153; 99291; C1725; C1769; C1874; C9600; J1200; J1644; J2250; J2270; J2405; J3010; J7620; Q9967

== ENCOUNTER 2024-08-27 10:05 | Outpatient (CLI) | payer BC, SELFPAY ==
[2024-08-27 19:41] LABS: Hemoglobin A1C 5.8 % (4.0-6.0)
[2024-08-27 20:34] LABS: HIV Combo NEGATIVE (Negative)
[2024-08-27 21:54] LABS: Hepatitis C Ab Qual. W/ RFX NEGATIVE (Negative)
[2024-09-04 07:10] LABS: Free Testosterone (Direct) 3.9 pg/mL (7.2-24.0); Testosterone, Total, LC/MS 330.6 ng/dL (264.0-916.0)
== END 2024-08-27 23:59 | disposition home or self-care (01) ==
LOC: LAB.DROPOF 08-28 10:39
PROVIDERS: PCP Family Medicine; Visit Provider Family Medicine
DX: I21.19 ST elevation (STEMI) myocardial infarction involving other coronary artery of inferior wall (principal); I10 Essential (primary) hypertension
CPT/HCPCS: 83036; 86803; 87389

== ENCOUNTER 2024-09-03 09:48 | Outpatient (RCR) | payer BC, SELFPAY | END 2024-10-21 10:30 | disposition home or self-care (01) | LOC: CR 09:48 | PROVIDERS: Visit Provider Internal Medicine | DX: R69 Illness, unspecified (principal) ==

== ENCOUNTER 2024-09-11 08:34 | Day surgery (SDC) | payer BC, SELFPAY ==
[2024-09-11] VITALS (11 sets, daily range): BP systolic 101–123; BP diastolic 52–70; PULSE 44–65; RESP 16–20; O2SAT 95–100; BMI 31.1
--- NOTE | 2024-09-11 | IR_ITS ---
APPROVED REPORT Patient Location: Outpatient Assistant Director Of Financial Aid: Daniel Collins, RT (R) PROCEDURES Drug-eluting stent deployment to the proximal large circumflex artery INDICATION Coronary artery disease, Staged coronary revascularization, Recent ST elevation myocardial infarction Informed consent was obtained prior to the procedure. COMPLICATIONS none Estimated Blood Loss: less than 10ml TECHNIQUE One percent lidocaine used to anesthetize the right anterior aspect of the wrist. The right radial artery was accessed via the Seldinger technique. A 6 Kyr[place]z sheath was placed in the right radial artery. 2.5 mg of Verapamil, 800 mcg of nitroglycerin, 1mg Lidocaine and therapeutic U Heparin were given through the arterial sheath which gave a therapeutic ACT. A JL 3 guide catheter was used to intubate the circumflex artery followed by Choice PT extra-support wire. A 3.5 x 26 mm Bryan frontier stent was deployed at 20 efrain reducing the stenosis to 0% BRADLEY-3 flow was present before and after the procedure. At the end the procedure the apparatus was removed the sheath was removed and hemostasis was achieved using TR banding patient was transferred to the postop putting in stable condition IMPRESSION Severe stenosis in the circumflex artery with successful stenting reducing the stenosis to 0% with 1 drug-eluting stent PLAN 1. Continue current plan of dual antiplatelet therapy 2. Risk factor modification 3. LDL less than 55 to be achieved with high intensity statin 4. Avoidance of tobacco products 5. Cardiac rehabilitation Electronically signed by : Mauro Herron MD 09/11/2024 10:10:38
[2024-09-11 09:22] LABS: Basophils # 0.1 K/mm3 (0-0.2); Basophils % 1.1 % (0.1-2.0); Eosinophils # 0.3 K/mm3 (0.0-0.4); Eosinophils % 5.1 % (0.1-12.0); Hematocrit 43.4 % (42.0-52.0); Hemoglobin 15.1 g/dL (14.1-18.0); Lymphocytes # 1.8 K/mm3 (0.7-4.5); Lymphocytes % 29.5 % (10-50); Mean Corpuscular HGB Conc 34.8 g/dL (31.8-35.4); Mean Corpuscular Hemoglobin 31.7 pg (27.0-31.2); Mean Platelet Volume 11.6 fl (7.4-10.4); Monocytes # 0.7 K/mm3 (0.1-1.0); Monocytes % 10.8 % (1.7-9.3); Neutrophils # 3.2 K/mm3 (1.8-7.8); Neutrophils % 52.7 % (37.0-80.0); Platelet Count 167 K/mm3 (142-424); Red Blood Count 4.77 M/mm3 (4.60-6.20); Red Cell Distribution Width 12.6 % (11.5-17.5); White Blood Count 6.1 K/mm3 (4.8-10.8)
[2024-09-11 09:33] LABS: Chloride 105 mmol/L (98-107); Potassium 4.1 mmoL/L (3.5-5.1); Sodium 137 mmol/L (136-145)
[2024-09-11 09:36] LABS: Anion Gap 11.1 mEq/L (5-15); Blood Urea Nitrogen 15 mg/dl (9-20); Calcium 8.8 mg/dl (8.4-10.2); Carbon Dioxide 25 mmol/L (22.0-30.0); Creatinine Clearance Estimated 118 mL/min (50-200); Estimated Glomerular Filt Rate 70 ml/min (>60); GFR (African American) 85 ML/MIN (>60); Glucose 104 mg/dl (74-100)
[2024-09-11] MEDS: VERAPAMIL 2.5MG/ML 2ML VIAL 2.5 MG IV (09:42)
[2024-09-11] MEDS: LIDOCAINE 1% 10ML MDV 20 ML IJ (09:42)
[2024-09-11] MEDS: HEPARIN 1,000 UNITS/500ML NS (CATH LAB) 3000 UNIT IV (09:43)
[2024-09-11] MEDS: MIDAZOLAM HCL 1MG/ML 5ML VIAL 1 MG IV (09:43)
[2024-09-11] MEDS: FENTANYL 100MCG/2ML VIAL 50 MCG IV (09:43)
[2024-09-11] MEDS: NITROGLYCERIN 800MCG/8ML SYR (CATH LAB) 800 MCG IA (09:43)
[2024-09-11] MEDS: diphenhydrAMINE 50MG/ML VIAL 50 MG IV (09:43)
[2024-09-11] MEDS: HEPARIN 1,000 UNITS/ML 10ML VIAL (CATH LAB) 10000 UNIT IV (09:43)
--- NOTE | 2024-09-11 11:56 | SUR.PHASEII ---
Family at bedside, meal tray ordered
[2024-09-11 14:12] LABS: CATHL Activated Clotting Time 318 SEC (74-125)
[2024-09-11] MEDS: IOPAMIDOL-370 (76%);100ML BOTTLE 70 ML IV (14:14)
== END 2024-09-11 12:59 | disposition home or self-care (01) ==
LOC: CATHLAB 08:38
PROVIDERS: PCP Family Medicine; Visit Provider Internal Medicine
DX: I25.10 Atherosclerotic heart disease of native coronary artery without angina pectoris (principal); I21.19 ST elevation (STEMI) myocardial infarction involving other coronary artery of inferior wall; E55.9 Vitamin D deficiency, unspecified; I10 Essential (primary) hypertension; F17.210 Nicotine dependence, cigarettes, uncomplicated; Z79.899 Other long term (current) drug therapy; I77.1 Stricture of artery
CPT/HCPCS: 80048; 85025; 85347; 92928; 99152; C1725; C1769; C1874; C9600; J1200; J1644; J2250; J3010; Q9967

== ENCOUNTER 2024-09-14 11:30 | Outpatient (CLI) | payer BC, SELFPAY ==
[2024-09-14 12:06] LABS: Basophils # 0.1 K/mm3 (0-0.2); Basophils % 1.5 % (0.1-2.0); Eosinophils # 0.4 K/mm3 (0.0-0.4); Eosinophils % 7.5 % (0.1-12.0); Hematocrit 42.8 % (42.0-52.0); Hemoglobin 14.6 g/dL (14.1-18.0); Lymphocytes # 1.7 K/mm3 (0.7-4.5); Lymphocytes % 31.7 % (10-50); Mean Corpuscular HGB Conc 34.1 g/dL (31.8-35.4); Mean Corpuscular Hemoglobin 31.6 pg (27.0-31.2); Mean Corpuscular Volume 92.6 fl (80-94); Mean Platelet Volume 11.9 fl (7.4-10.4); Monocytes # 0.6 K/mm3 (0.1-1.0); Neutrophils # 2.7 K/mm3 (1.8-7.8); Neutrophils % 48.6 % (37.0-80.0); Platelet Count 140 K/mm3 (142-424); Red Blood Count 4.62 M/mm3 (4.60-6.20); Red Cell Distribution Width 13.1 % (11.5-17.5); White Blood Count 5.5 K/mm3 (4.8-10.8)
[2024-09-14 13:03] LABS: Chloride 104 mmol/L (98-107); Sodium 140 mmol/L (136-145)
[2024-09-14 13:04] LABS: Potassium 4.6 mmoL/L (3.5-5.1)
[2024-09-14 13:06] LABS: Blood Urea Nitrogen 11 mg/dl (9-20); Estimated Glomerular Filt Rate 63 ml/min (>60); GFR (African American) 76 ML/MIN (>60)
[2024-09-14 13:07] LABS: Anion Gap 11.6 mEq/L (5-15); Calcium 9.1 mg/dl (8.4-10.2); Carbon Dioxide 29 mmol/L (22.0-30.0); Glucose 100 mg/dl (74-100)
== END 2024-09-14 23:59 | disposition home or self-care (01) ==
LOC: LAB 11:31
PROVIDERS: PCP Family Medicine; Visit Provider Internal Medicine
DX: Z95.5 Presence of coronary angioplasty implant and graft (principal)
CPT/HCPCS: 36415; 80048; 85025

== ENCOUNTER 2024-09-15 09:19 | Outpatient (CLI) | payer BC, SELFPAY ==
--- NOTE | 2024-09-15 09:21 | US_ITS ---
FINAL REPORT CLINICAL HISTORY: Family history Multiple Endocrine Neoplasia FINDINGS: Limited sonographic images of the thyroid were obtained. The right lobe of the thyroid measures 4.2 x 1.8 x 2.2 cm. The left lobe of the thyroid measures 5.0 x 1.2 x 2.1 cm. The thyroid parenchyma is heterogeneous. No nodules are identified. The isthmus measures 8 mm. IMPRESSION: No nodules identified. Reviewed, Interpreted and Dictated by Darnell Barrientos MD Transcribed by Chanlele Nolan Authenticated and [facility]
--- NOTE | 2024-09-15 09:21 | CT_ITS ---
FINAL REPORT TECHNIQUE: Axial images were obtained from the lung apex to the mid abdomen by computed tomography. This study was performed with techniques to keep radiation doses as low as reasonably achievable (ALARA). Individualized dose reduction techniques using automated exposure control or adjustment of mA and/or kV according to the patient's size were employed. CLINICAL HISTORY: lung cancer screening smoker 40 years 2 ppd FINDINGS: CHEST CT LOW DOSE CTDI vol (mGy): 2.7 DLP (mGy-cm): 104.1 There is no axillary adenopathy. There is no hilar or mediastinal adenopathy. The heart is normal in size. There is no pericardial or pleural effusion. There is coarse interstitial opacity in the lung bases, probably due to mild fibrosis. Nodule in the right upper lobe measures 4 mm well-seen on image 185 of series 3. There are a small cluster of nodular opacities in the periphery of the left upper lobe well-seen on images 230-251. Limited images of the upper abdomen are unremarkable. IMPRESSION: Nodular opacities in the periphery of the left upper lobe, favor inflammatory. Right upper lobe nodule measures 4 mm. Lung RADS category 0. Recommend 1 month follow-up chest CT. Reviewed, Interpreted and Dictated by Darnell Barrientos MD Transcribed by Chanelle Nolan Authenticated and [facility]
== END 2024-09-15 23:59 | disposition home or self-care (01) ==
LOC: RAD 09:20
PROVIDERS: PCP Family Medicine; Visit Provider Family Medicine
DX: F17.210 Nicotine dependence, cigarettes, uncomplicated (principal); Z83.41 Family history of multiple endocrine neoplasia [MEN] syndrome
CPT/HCPCS: 71271; 76536

== ENCOUNTER 2024-09-25 09:36 | Outpatient (CLI) | payer BC, SELFPAY ==
[2024-09-25 20:40] LABS: 25-OH Vitamin D, Total 28.8 ng/mL (30-100)
== END 2024-09-25 23:59 | disposition home or self-care (01) ==
LOC: LAB.DROPOF 09-26 10:36
PROVIDERS: PCP Family Medicine; Visit Provider Family Medicine
DX: E55.9 Vitamin D deficiency, unspecified (principal); Z86.39 Personal history of other endocrine, nutritional and metabolic disease
CPT/HCPCS: 82306

== ENCOUNTER 2024-10-26 11:30 | Outpatient (CLI) | payer BC, SELFPAY ==
[2024-10-26 11:36] LABS: Anti-Centromere B Antibodies ND; Anti-DNA (DS) Ab Qn ND; Anti-Jo-1 ND; Antichromatin Antibodies ND; Antiscleroderma-70 Antibodies ND; RNP Antibodies ND; Sjogren's Anti-SS-A ND; Sjogren's Anti-SS-B ND
[2024-10-26 11:36] LABS: MANUAL DIFFERENTIAL MANUAL DIFFERENTIAL (MANUAL DIFF)
[2024-10-26 11:57] LABS: Basophils # 0.1 K/mm3 (0-0.2); Eosinophils # 0.4 K/mm3 (0.0-0.4); Eosinophils % 7.8 % (0.1-12.0); Hematocrit 43.3 % (42.0-52.0); Lymphocytes # 1.8 K/mm3 (0.7-4.5); Lymphocytes % 35.9 % (10-50); Mean Corpuscular HGB Conc 34.6 g/dL (31.8-35.4); Mean Corpuscular Hemoglobin 31.6 pg (27.0-31.2); Mean Corpuscular Volume 91.4 fl (80-94); Mean Platelet Volume 11.4 fl (7.4-10.4); Monocytes # 0.6 K/mm3 (0.1-1.0); Monocytes % 11.4 % (1.7-9.3); Neutrophils # 2.2 K/mm3 (1.8-7.8); Neutrophils % 42.7 % (37.0-80.0); Platelet Count 168 K/mm3 (142-424); Red Blood Count 4.74 M/mm3 (4.60-6.20); Red Cell Distribution Width 13.2 % (11.5-17.5)
[2024-10-26 12:08] LABS: Chloride 104 mmol/L (98-107); Sodium 137 mmol/L (136-145)
[2024-10-26 12:09] LABS: Potassium 4.3 mmoL/L (3.5-5.1)
[2024-10-26 12:11] LABS: Blood Urea Nitrogen 14 mg/dl (9-20); Estimated Glomerular Filt Rate 58 ml/min (>60); GFR (African American) 70 ML/MIN (>60)
[2024-10-26 12:12] LABS: Anion Gap 9.3 mEq/L (5-15); Calcium 9.2 mg/dl (8.4-10.2); Carbon Dioxide 28 mmol/L (22.0-30.0); Glucose 103 mg/dl (74-100)
[2024-10-26 12:17] LABS: C-Reactive Protein 3.9 mg/L (0-4)
[2024-10-26 12:19] LABS: Eosinophils % 7 % (0-3); Lymphocytes % 43 % (10-50); Monocytes % 8 % (2-9); Neutrophils % 42 % (42-76); Platelet Estimate Normal; RBC Morphology Normal; Total Cells Counted 100
[2024-10-27 13:28] LABS: Antinuclear Antibodies (ANA) Negative (Negative)
[2024-10-30 19:53] LABS: Rheumatoid Factor IGM < 7 U (<7)
[2024-11-02 01:15] LABS: Anti-CCP Abs,IgG and IgA (RDL) < 20 Units (<20)
== END 2024-10-26 23:59 | disposition home or self-care (01) ==
LOC: LAB 11:31
PROVIDERS: Internal Medicine; PCP Family Medicine; Visit Provider Internal Medicine Pulmonary Disease
DX: J84.9 Interstitial pulmonary disease, unspecified (principal); R06.09 Other forms of dyspnea; I21.19 ST elevation (STEMI) myocardial infarction involving other coronary artery of inferior wall
CPT/HCPCS: 36415; 80048; 85007; 85014; 85018; 85048; 85049; 86038; 86140; 86200; 86225; 86235; 86431

== ENCOUNTER 2025-01-19 08:36 | Outpatient (CLI) | payer BC, SELFPAY ==
--- NOTE | 2025-01-19 09:30 | CT_ITS ---
FINAL REPORT TECHNIQUE: Thin section axial images were obtained from the lung apices through the upper abdomen without contrast. Supine inspiration and expiration and prone inspiration hi-resolution images were obtained and reviewed. This study was performed with techniques to keep radiation doses as low as reasonably achievable (ALARA). Individualized dose reduction techniques using automated exposure control or adjustment of mA and/or kV according to the patient's size were employed. CLINICAL HISTORY: interstitial lung disease, copd sob COMPARISON: CT low-dose 09/15/2024 FINDINGS: There is mildly prominent stable bilateral axillary lymphadenopathy. No mediastinal or hilar lymphadenopathy. No pleural or pericardial effusion. Again seen are reticulonodular opacities in the left upper lobe. A 4 mm right upper lobe nodule is stable, well-seen on series 2 image 24. There are 2 right lower lobe nodules on images 45 and 46 of series 2 which are stable. No new consolidations identified.. Limited, unenhanced evaluation of the upper abdomen is without acute abnormality. Gallstones are noted. There is no acute osseous abnormality. High-resolution images demonstrate mild intralobular septal thickening at the lung bases. No evidence of fibrosis. There is no significant bronchiectasis. No focal air-trapping is seen. IMPRESSION: Stable left upper lobe reticulonodular opacities and bilateral pulmonary nodules. Continued follow-up recommended. Mild interlobular septal thickening without evidence of pulmonary fibrosis. This does not have the appearance of UIP/IPF. Reviewed, Interpreted and Dictated by Jaki Denton MD Transcribed by Yana Mueller Authenticated and [facility]
[2025-01-19] MEDS: ALBUTEROL 0.083% 2.5 MG/3 ML NEB IH (10:38)
--- NOTE | 2025-01-19 10:38 | PC.NURSE ---
PFT and 5 Minute Walk Test completed without incident. Albuterol 0.083% given via HHN, per written protocol, Pt tolerated tx well.
== END 2025-01-19 23:59 | disposition home or self-care (01) ==
LOC: RAD 08:37
PROVIDERS: PCP Family Medicine; Visit Provider Internal Medicine Pulmonary Disease
DX: R91.8 Other nonspecific abnormal finding of lung field (principal); J44.9 Chronic obstructive pulmonary disease, unspecified; J84.9 Interstitial pulmonary disease, unspecified
CPT/HCPCS: 71250; 94060; 94618; 94726; 94729

== ENCOUNTER 2025-08-16 10:37 | Outpatient (CLI) | payer BC, SELFPAY ==
[2025-08-16 15:37] LABS: Coronavirus 19, PCR Not Detected (NotDetected); Influenza A, PCR Not Detected (NotDetected); Influenza B, PCR Not Detected (NotDetected)
== END 2025-08-16 23:59 | disposition home or self-care (01) ==
LOC: LAB.DROPOF 08-17 11:38
PROVIDERS: PCP Family Medicine; Visit Provider Nurse Practitioner
DX: J06.9 Acute upper respiratory infection, unspecified (principal)
CPT/HCPCS: 87631